=== PATIENT | male | born 1950 | race Caucasian/White ===

== ENCOUNTER 2020-10-14 10:29 | Outpatient (REF) | payer MEDICARE, OTHER, SELFPAY ==
[2020-10-14 12:21] LABS: PSA,Total (Free>4and<10) 0.23 ng/mL (0.00-4.00)
== END 2020-10-14 10:30 | disposition home or self-care (01) ==
LOC: HO.LAB 10:29
PROVIDERS: Absent Provider Urology; PCP Internal Medicine; Visit Provider Internal Medicine
DX: N40.1 Benign prostatic hyperplasia with lower urinary tract symptoms (principal); M96.1 Postlaminectomy syndrome, not elsewhere classified; Z12.5 Encounter for screening for malignant neoplasm of prostate
CPT/HCPCS: 36415; 83735; 84153

== ENCOUNTER → 2021-01-15 08:41 | Outpatient (BNVA) | payer MEDICARE, OTHER, SELFPAY | PROVIDERS: PCP Internal Medicine; Visit Provider Urology | DX: N40.1 Benign prostatic hyperplasia with lower urinary tract symptoms (principal); N13.8 Other obstructive and reflux uropathy; N52.9 Male erectile dysfunction, unspecified; I10 Essential (primary) hypertension; E78.5 Hyperlipidemia, unspecified; Z88.8 Allergy status to other drugs, medicaments and biological substances; Z87.891 Personal history of nicotine dependence | CPT/HCPCS: 51798; 81002; 99212 ==

== ENCOUNTER → 2022-07-01 11:04 | Outpatient (BNVA) | payer MEDICARE, OTHER, SELFPAY | PROVIDERS: PCP Internal Medicine; Visit Provider Urology | DX: N40.1 Benign prostatic hyperplasia with lower urinary tract symptoms (principal); N13.8 Other obstructive and reflux uropathy; N52.9 Male erectile dysfunction, unspecified | CPT/HCPCS: 51798; 99212 ==

== ENCOUNTER 2023-03-16 09:06 | Outpatient (REF) | payer MEDICARE, OTHER, SELFPAY ==
[2023-03-16 10:10] LABS: Basophils Percent Auto 0.4 % (0-2); Eosinophils Absolute Auto 0.1 X10*3/uL (0.0-0.4); Eosinophils Percent Auto 5.7 % (0-4); Hematocrit 38.5 % (42.0-52.0); Hemoglobin 12.5 g/dl (14.0-18.0); Imm Gran Abs Auto 0.01 X10*3/uL (0.00-0.03); Imm Gran Pct Auto 0.4 % (0.0-0.4); Lymphocytes Absolute Auto 0.8 X10*3/uL (1.2-4.9); Lymphocytes Percent Auto 31.6 % (20-40); Mean Corpuscular HGB Conc 32.5 g/dl (31.0-36.0); Mean Corpuscular Hemoglobin 27.7 pg (27.0-33.0); Mean Corpuscular Volume 85.4 fL (80.0-98.0); Mean Platelet Volume 9.7 fL (9.4-12.4); Monocytes Absolute Auto 0.3 X10*3/uL (0.1-1.2); Monocytes Percent Auto 11.3 % (2-11); Neutrophils Absolute Auto 1.3 x10*3/uL (2.0-8.3); Neutrophils Percent Auto 50.6 % (45-73); Platelet Count 213 X10*3/uL (160-400); Red Blood Count 4.51 X10*6/uL (4.60-5.80); Red Cell Distribution Width 13.9 % (11.0-16.0); SCAN SMEAR FLAG 1; White Blood Count 2.5 X10*3/uL (4.8-10.8)
[2023-03-16 10:11] LABS: MANUAL DIFF FLAG NO
[2023-03-16 11:40] LABS: Alanine Aminotransferase 11 U/L (0-40); Albumin Level 4.6 g/dL (3.5-5.0); Alkaline Phosphatase 50 U/L (39-117); Anion Gap 14 (12-20); Aspartate Amino Transferase 14 U/L (5-37); Bilirubin Total 0.9 mg/dL (0.0-1.0); Blood Urea Nitrogen 17 mg/dL (9-16); Calcium 9.8 mg/dL (8.4-10.2); Carbon Dioxide 24 mmol/L (22-29); Chloride 106 mmol/L (96-108); Cholesterol 166 mg/dL; Estimated Glomerular Filt Rate > 60; Glucose Fasting 105 mg/dL (60-99); HDL Cholesterol 75 mg/dL; LDL Cholesterol Calculated 81 mg/dl; Potassium 4.3 mmol/L (3.3-5.1); Sodium 140 mmol/L (135-145); Total Protein 7.4 g/dL (6.5-8.0); Triglycerides 54 mg/dL
== END 2023-03-16 09:07 | disposition home or self-care (01) ==
LOC: HO.LAB 09:06
PROVIDERS: PCP Internal Medicine; Visit Provider Internal Medicine
DX: N28.9 Disorder of kidney and ureter, unspecified (principal); D64.9 Anemia, unspecified; E78.5 Hyperlipidemia, unspecified
CPT/HCPCS: 36415; 80053; 80061; 85025

== ENCOUNTER 2023-04-29 09:30 | Outpatient (AMB) | payer MEDICARE, OTHER, SELFPAY ==
--- NOTE | 2023-04-29 09:31 | A.OFFPC_ITS ---
Vital Signs 04/29/23 09:32 Height 5 ft 10 in Weight 174 lb 6 oz BMI 25.0 BP 138/70 Blood Pressure Location Lt brachial Position Sitting Pulse 81 Pulse Source Pulse Oximeter Pulse Oximetry (%) 97 Oxygen Delivery Method Room Air Intake Visit Reasons: Med Management Intake Note: Patient is here to follow up on medication management. Associate Store Leader Required: No Clothing Pattern Preparer: Not Required per policy Accompanied by: Self / Same As Patient Allergies adalimumab [From [facility]UM[facility]A] Allergy (Unknown, Verified 04/29/23 09:32) RASH Bdpcryb-SEK-QyJ Reductase Inhibitor [AOTNEIT-EPO-KYN REDUCTASE INHIBITOR] Allergy (Unknown, Verified 04/29/23 09:32) SWELLING Medication List - Last Reconciled 04/29/23 by Chad Burk MD amlodipine 10 mg PO DAILY clobetasol 0.05% 1 appl topical BID diazepam 5 mg PO etanercept mg subcut QWEEK gabapentin 100 mg PO TID gemfibrozil 600 mg PO BID hydrocodone-acetaminophen 7.5-325 mg 1 tab PO Q6H PRN indomethacin 50 mg (2 x 25 mg) PO BID lisinopril 40 mg PO DAILY omeprazole 40 mg PO DAILY orphenadrine citrate ER 100 mg PO BID secukinumab mg subcut Q4W sildenafil 100 mg PO DAILY PRN tamsulosin 0.4 mg PO DAILY triamcinolone acetonide 0.5% 1 appl topical BID zolpidem 10 mg PO BEDTIME PRN Tobacco use date assessed: 04/29/23 Fall risk assessment: No Falls in past year Last assessed Fall Risk: 04/29/23 Dental Screening Dental Screen Date: 04/29/23 Did you have a dental visit in the last 12 months?: Yes Did you have a dental problem in the last 6 months where you did not have access to dental care?: No Was dental information given to patient?: Patient has dentist HPI Med Management HPI Details chronic back pain; stable and compliant [facility] Medical History Benign essential HTN Enlarged prostate without lower urinary tract symptoms (luts) Erectile dysfunction Hyperlipidemia Polyuria Primary osteoarthritis of right knee Psoriatic arthritis Surgical History History of appendectomy History of arthroscopy of right knee History of laparoscopic cholecystectomy History of surgery History of tonsillectomy Family History Father Degenerative joint disease Mother Psoriasis Rheumatoid arthritis Social History Housing: House Housing Other:: refused to answer Alcohol intake: never Patient Tobacco Use Status: Former Tobacco user e-Cigarette/Vaping Use: Never Used Second Hand Smoke Exposure: No service: No Current occupational status: other (refused) Current occupational exposures/hazards: No Cognitive needs: No Hearing needs: No Vision needs: No Questionnaire PHQ-9 Over the last 2 weeks, how often have you been bothered by any of the following problems? Depression Screening Interpretation: Negative Source: Developed by Drs. Hunter Ahuja, Nusrat Kraus, Ifeanyi Lyn and colleagues, with an educational merry from [employer]. Thrive Questionnaire Date Thrive assessed: 10/01/22 Currently or been in a relationship where the following occur: no concerns reported NELSON-7 AMB Questionnaire NELSON-7 Date NELSON - 7 assessed: 10/01/22 Source: Developed by Drs. Hunter Ahuja, Nusrat Kraus, Ifeanyi Lyn and colleagues, with an educational merry from [employer]. Review of Systems Const Denies chills, Denies headache(s) and Denies weight loss ENT Denies headache(s) Card Denies chest pain, Denies syncope, Denies irregular heart rhythm and Denies dyspnea Resp Denies chest congestion, Denies cough and Denies dyspnea GI Denies abdominal pain, Denies change in stool character, Denies nausea and Denies vomiting Musc Denies deformity and Denies joint swelling Neuro Denies syncope and Denies headache(s) Physical exam (Primary Care) Vital Signs: Last Vital Signs Pulse 81 04/29/23 09:32 BP 138/70 04/29/23 09:32 Pulse Ox 97 04/29/23 09:32 Oxygen Delivery Method Room Air 04/29/23 09:32 BMI result Body Mass Index 25.0 Tobacco/Smoking Status: Tobacco use Status Tobacco use date assessed 04/29/23 04/29/23 09:35 Patient Tobacco Use Status Former Tobacco user 04/29/23 09:35 e-Cigarette/Vaping Use Never Used 04/29/23 09:35 Depression Screening Interpretation: Negative Thrive Assessment: Date of Thrive Assessment Date Thrive assessed 10/01/22 04/29/23 09:35 Currently or been in a relationship where the following occur: no concerns reported Const General: cooperative, comfortable and no acute distress Resp Effort & Inspection: normal respiratory effort Auscultation: clear to auscultation bilaterally Percussion: percussion normal Cardio Jugular venous distension: no JVD Rate: regular rate Rhythm: regular rhythm GI Inspection: Yes normal to inspection Assessment and Plan Assessment & Plan (1) Failed back syndrome: Code(s): M96.1 - Postlaminectomy syndrome, not elsewhere classified Plan: stable; same rx Medications: Refilled hydrocodone-acetaminophen 7.5-325 mg 1 tab PO Q6H PRN 120 tabs 0RF pain M96.1 - Postlaminectomy syndrome, not elsewhere classified Coding Level of Care Code Est Pt Level 3 (74538) Diagnoses Failed back syndrome M96.1
[2023-04-29 09:32] VITALS: BP 138/70; PULSE 81; O2SAT 97; BMI 25.0
== END 2023-04-29 09:43 | disposition home or self-care (01) ==
PROVIDERS: Visit Provider Internal Medicine
DX: M96.1 Postlaminectomy syndrome, not elsewhere classified (principal)
CPT/HCPCS: 99213

== ENCOUNTER 2023-05-31 09:29 | Outpatient (AMB) | payer MEDICARE, OTHER, SELFPAY ==
[2023-05-31 09:33] VITALS: BP 132/68; PULSE 80; O2SAT 97; BMI 25.0
--- NOTE | 2023-05-31 09:33 | MHC.PC.OV ---
Vital Signs 05/31/23 09:33 Height 5 ft 10 in Weight 174 lb 2 oz BMI 25.0 BP 132/68 Blood Pressure Location Lt brachial Position Sitting Pulse 80 Pulse Source Pulse Oximeter Pulse Oximetry (%) 97 Oxygen Delivery Method Room Air Intake Visit Reasons: Med Management Allergies adalimumab [From HUMIRA] Allergy (Unknown, Verified 04/29/23 09:32) RASH Wazrvog-XGP-JsA Reductase Inhibitor [DBUJSWW-OMQ-BOU REDUCTASE INHIBITOR] Allergy (Unknown, Verified 04/29/23 09:32) SWELLING Tobacco use date assessed: 04/29/23 HPI Med Management HPI Details f/u chronic back pain; stable on rx PFSH Medical History Benign essential HTN Enlarged prostate without lower urinary tract symptoms (luts) Erectile dysfunction Hyperlipidemia Polyuria Primary osteoarthritis of right knee Psoriatic arthritis Surgical History History of appendectomy History of arthroscopy of right knee History of laparoscopic cholecystectomy History of surgery History of tonsillectomy Family History Father Degenerative joint disease Mother Psoriasis Rheumatoid arthritis Social History Housing: House Housing Other:: refused to answer Alcohol intake: never Patient Tobacco Use Status: Former Tobacco user e-Cigarette/Vaping Use: Never Used Second Hand Smoke Exposure: No service: No Current occupational status: other (refused) Current occupational exposures/hazards: No Cognitive needs: No Hearing needs: No Vision needs: No Questionnaire PHQ-9 Over the last 2 weeks, how often have you been bothered by any of the following problems? 1. Little interest or pleasure in doing things: not at all 2. Feeling down, depressed, or hopeless: not at all 3. Trouble falling or staying asleep, or sleeping too much: not at all 4. Feeling tired or having little energy: not at all 5. Poor appetite or overeating: not at all 6. Feeling bad about yourself - or that you are a failure or have let yourself or your family down: not at all 7. Trouble concentrating on things, such as reading the newspaper or watching television: not at all 8. Moving or speaking so slowly that other people could have noticed. Or the opposite - being so fidgety or restless that you have been moving around a lot more than usual: not at all 9. Thoughts that you would be better off or of hurting yourself in some way: not at all Total score: 0 Depression Screening Interpretation: Negative Source: Developed by Nusrat Cuenca Kurt Kroenke and colleagues, with an educational merry from [employer]. Thrive Questionnaire Date Thrive assessed: 10/01/22 Currently or been in a relationship where the following occur: no concerns reported AUDIT C Alcohol Use Questionnaire (AUDIT-C) 1. How often do you have a drink containing alcohol?: Never 3. How often do you have six or more drinks on one occasion?: Never Total Score: 0 Score Reviewed/Action Taken: Yes NELSON-7 AMB Questionnaire NELSON-7 Date NELSON - 7 assessed: 10/01/22 Source: Developed by Drs. Hunter Ahuja, Nusrat Kraus, Ifeanyi Lyn and colleagues, with an educational merry from [employer]. Physical exam (Primary Care) Vital Signs: Last Vital Signs Pulse 80 05/31/23 09:33 BP 132/68 05/31/23 09:33 Pulse Ox 97 05/31/23 09:33 Oxygen Delivery Method Room Air 05/31/23 09:33 BMI result Body Mass Index 25.0 Tobacco/Smoking Status: Tobacco use Status Tobacco use date assessed 04/29/23 05/31/23 09:37 Patient Tobacco Use Status Former Tobacco user 05/31/23 09:37 e-Cigarette/Vaping Use Never Used 05/31/23 09:37 PHQ-9: PHQ-9 Score PHQ-9: Total score 0 05/31/23 09:37 Depression Screening Interpretation: Negative Thrive Assessment: Date of Thrive Assessment Date Thrive assessed 10/01/22 05/31/23 09:37 Currently or been in a relationship where the following occur: no concerns reported Const General: cooperative, comfortable and no acute distress Resp Effort & Inspection: normal respiratory effort Auscultation: clear to auscultation bilaterally Percussion: percussion normal Cardio Jugular venous distension: no JVD Rate: regular rate Rhythm: regular rhythm GI Inspection: Yes normal to inspection Assessment and Plan Assessment & Plan (1) Failed back syndrome: Code(s): M96.1 - Postlaminectomy syndrome, not elsewhere classified Plan: stable; same rx Medications: Refilled hydrocodone-acetaminophen 7.5-325 mg 1 tab PO Q6H PRN 120 tabs 0RF pain M96.1 - Postlaminectomy syndrome, not elsewhere classified Coding Level of Care Code Est Pt Level 3 (62979) Diagnoses Failed back syndrome M96.1
== END 2023-05-31 10:36 | disposition home or self-care (01) ==
PROVIDERS: PCP Internal Medicine; Visit Provider Internal Medicine
DX: M96.1 Postlaminectomy syndrome, not elsewhere classified (principal)
CPT/HCPCS: 99213

== ENCOUNTER 2023-06-30 09:24 | Outpatient (AMB) | payer MEDICARE, OTHER, SELFPAY ==
[2023-06-30 09:26] VITALS: BP 130/68; PULSE 65; O2SAT 98; BMI 25.0
--- NOTE | 2023-06-30 09:26 | MHC.PC.OV ---
Vital Signs 06/30/23 09:26 Height 5 ft 10 in Weight 174 lb BMI 25.0 BP 130/68 Blood Pressure Location Lt brachial Position Sitting Pulse 65 Pulse Source Pulse Oximeter Pulse Oximetry (%) 98 Oxygen Delivery Method Room Air Intake Visit Reasons: Med Management Millinery Blocker: Not Required per policy Accompanied by: Self / Same As Patient Allergies adalimumab [From HUMIRA] Allergy (Unknown, Verified 06/30/23 09:27) RASH Mjhkkcs-JYQ-FtS Reductase Inhibitor [YMZGQIR-QVQ-KAM REDUCTASE INHIBITOR] Allergy (Unknown, Verified 06/30/23 09:27) SWELLING Medication List - Last Reconciled 06/30/23 by Chad Burk MD amlodipine 10 mg PO DAILY clobetasol 0.05% 1 appl topical BID diazepam 5 mg PO etanercept mg subcut QWEEK gabapentin 100 mg PO TID gemfibrozil 600 mg PO BID hydrocodone-acetaminophen 7.5-325 mg 1 tab PO Q6H PRN indomethacin 50 mg (2 x 25 mg) PO BID lisinopril 40 mg PO DAILY omeprazole 40 mg PO DAILY orphenadrine citrate ER 100 mg PO BID secukinumab mg subcut Q4W sildenafil 100 mg PO DAILY PRN tamsulosin 0.4 mg PO DAILY triamcinolone acetonide 0.5% 1 appl topical BID zolpidem 10 mg PO BEDTIME PRN Tobacco use date assessed: 04/29/23 Fall risk assessment: No Falls in past year Last assessed Fall Risk: 06/30/23 Dental Screening Dental Screen Date: 06/30/23 Did you have a dental visit in the last 12 months?: Yes Did you have a dental problem in the last 6 months where you did not have access to dental care?: No Was dental information given to patient?: Patient has dentist HPI Med Management HPI Details f/u failed back syndrome; doing well PFSH Medical History Polyuria Hyperlipidemia Psoriatic arthritis Benign essential HTN Primary osteoarthritis of right knee Erectile dysfunction Enlarged prostate without lower urinary tract symptoms (luts) Surgical History History of surgery History of laparoscopic cholecystectomy History of tonsillectomy History of arthroscopy of right knee History of appendectomy Family History Father Degenerative joint disease Mother Psoriasis Rheumatoid arthritis Social History Housing: House Housing Other:: refused to answer Alcohol intake: never Patient Tobacco Use Status: Former Tobacco user e-Cigarette/Vaping Use: Never Used Second Hand Smoke Exposure: No service: No Current occupational status: other (refused) Current occupational exposures/hazards: No Cognitive needs: No Hearing needs: No Vision needs: No Questionnaire PHQ-9 Over the last 2 weeks, how often have you been bothered by any of the following problems? 1. Little interest or pleasure in doing things: not at all 2. Feeling down, depressed, or hopeless: not at all 3. Trouble falling or staying asleep, or sleeping too much: not at all 4. Feeling tired or having little energy: not at all 5. Poor appetite or overeating: not at all 6. Feeling bad about yourself - or that you are a failure or have let yourself or your family down: not at all 7. Trouble concentrating on things, such as reading the newspaper or watching television: not at all 8. Moving or speaking so slowly that other people could have noticed. Or the opposite - being so fidgety or restless that you have been moving around a lot more than usual: not at all 9. Thoughts that you would be better off or of hurting yourself in some way: not at all Total score: 0 Depression Screening Interpretation: Negative Depression Screening Done: Yes Source: Developed by Drs. Hunter Ahuja, Ifeanyi Benson and colleagues, with an educational merry from [employer]. Thrive Questionnaire Date Thrive assessed: 10/01/22 AUDIT C Alcohol Use Questionnaire (AUDIT-C) 1. How often do you have a drink containing alcohol?: Never 3. How often do you have six or more drinks on one occasion?: Never Total Score: 0 Score Reviewed/Action Taken: Yes NELSON-7 AMB Questionnaire NELSON-7 Date NELSON - 7 assessed: 10/01/22 Source: Developed by Nusrat Cuenca Kurt Kroenke and colleagues, with an educational merry from [employer]. Review of Systems Const Denies chills, Denies headache(s) and Denies weight loss ENT Denies headache(s) Card Denies chest pain, Denies syncope, Denies irregular heart rhythm and Denies dyspnea Resp Denies chest congestion, Denies cough and Denies dyspnea GI Denies abdominal pain, Denies change in stool character, Denies nausea and Denies vomiting Musc Denies deformity and Denies joint swelling Neuro Denies syncope and Denies headache(s) Physical exam (Primary Care) Vital Signs: Last Vital Signs Pulse 65 06/30/23 09:26 BP 130/68 06/30/23 09:26 Pulse Ox 98 06/30/23 09:26 Oxygen Delivery Method Room Air 06/30/23 09:26 BMI result Body Mass Index 25.0 Tobacco/Smoking Status: Tobacco use Status Tobacco use date assessed 04/29/23 06/30/23 09:28 Patient Tobacco Use Status Former Tobacco user 06/30/23 09:28 e-Cigarette/Vaping Use Never Used 06/30/23 09:28 PHQ-9: PHQ-9 Score PHQ-9: Total score 0 06/30/23 09:28 Depression Screening Interpretation: Negative Thrive Assessment: Date of Thrive Assessment Date Thrive assessed 10/01/22 06/30/23 09:28 Const General: cooperative, comfortable, no acute distress and alert Neck Neck: Yes no lymphadenopathy Thyroid: Thyroid normal Resp Effort & Inspection: normal respiratory effort Auscultation: clear to auscultation bilaterally Percussion: percussion normal Cardio Jugular venous distension: no JVD Palpation: normal PMI Rate: regular rate Rhythm: regular rhythm Heart sounds: S1 normal heart sound present and S2 normal heart sound present GI Inspection: Yes normal to inspection Palpation (GI): No hepatosplenomegaly present Skin General skin exam: no rashes or lesions noted Extrem General: Yes no clubbing, cyanosis or edema Office Procedures Flu Questionnaire Does the patient have a severe egg allergy?: No Does the patient have severe life threatening allergies?: No Does the patient have a fever or illness today?: No Has the patient ever had Guillain-[place] Syndrome?: No Has the patient ever had any past reaction to a flu shot?: No Immunizations flu vacc [id number] 6mos up(PF) 60 mcg(15 mcgx4)/0.5 mL IM syringe Performing Provider: Chad Burk MD [facility] Administered by: MIHAI Ortiz on 06/30/23 09:32 Dose Route Admin Location Dispensed Lot Number Expiration Date NDC Commercial Leasing Agent 0.5 mL IM Right Deltoid 0.5 mL [id number] 03/25/24 [id number] [employer] VIS Given Date VIS Provided VIS Publication Date 06/30/23 Single Vaccine 21 Eligibility Eligibility Date Funding Source Not [facility] Eligible 06/30/23 Private Assessment and Plan Assessment & Plan (1) Failed back syndrome: Code(s): M96.1 - Postlaminectomy syndrome, not elsewhere classified Plan: stable; same rx Orders: Orders Influenza [id number] Immunization Today Z23 - Encounter for immunization Medications: Refilled hydrocodone-acetaminophen 7.5-325 mg 1 tab PO Q6H PRN 120 tabs 0RF pain M96.1 - Postlaminectomy syndrome, not elsewhere classified Coding Level of Care Code Est Pt Level 3 (12831) Diagnoses Failed back syndrome M96.1
== END 2023-06-30 10:47 | disposition home or self-care (01) ==
PROVIDERS: PCP Internal Medicine; Visit Provider Internal Medicine
DX: Z23 Encounter for immunization (principal); M96.1 Postlaminectomy syndrome, not elsewhere classified
CPT/HCPCS: 90471; 90686; 99213

== ENCOUNTER 2023-07-29 09:23 | Outpatient (AMB) | payer MEDICARE, OTHER, SELFPAY ==
[2023-07-29 09:26] VITALS: BP 132/66; PULSE 65; O2SAT 99; BMI 25.8
--- NOTE | 2023-07-29 09:26 | A.OFFPC_ITS ---
Vital Signs 07/29/23 09:26 Height 5 ft 10 in Weight 180 lb BMI 25.8 BP 132/66 Blood Pressure Location Lt brachial Position Sitting Pulse 65 Pulse Source Pulse Oximeter Pulse Oximetry (%) 99 Oxygen Delivery Method Room Air Intake Visit Reasons: Med Management Pan Greaser Required: No Scratcher Tender: Not Required per policy Accompanied by: Self / Same As Patient Allergies adalimumab [From HUMIRA] Allergy (Unknown, Verified 07/29/23 09:26) RASH Zmyqujh-JND-XiV Reductase Inhibitor [WLOJQSS-WBV-HHW REDUCTASE INHIBITOR] Allergy (Unknown, Verified 07/29/23 09:26) SWELLING Medication List - Last Reconciled 07/29/23 by Chad Burk MD amlodipine 10 mg PO DAILY clobetasol 0.05% 1 appl topical BID diazepam 5 mg PO etanercept mg subcut QWEEK gabapentin 100 mg PO TID gemfibrozil 600 mg PO BID hydrocodone-acetaminophen 7.5-325 mg 1 tab PO Q6H PRN indomethacin 50 mg (2 x 25 mg) PO BID lisinopril 40 mg PO DAILY omeprazole 40 mg PO DAILY orphenadrine citrate ER 100 mg PO BID secukinumab mg subcut Q4W sildenafil 100 mg PO DAILY PRN tamsulosin 0.4 mg PO DAILY triamcinolone acetonide 0.5% 1 appl topical BID zolpidem 10 mg PO BEDTIME PRN Tobacco use date assessed: 04/29/23 Fall risk assessment: No Falls in past year Last assessed Fall Risk: 07/29/23 Dental Screening Dental Screen Date: 07/29/23 Did you have a dental visit in the last 12 months?: Yes Did you have a dental problem in the last 6 months where you did not have access to dental care?: No Was dental information given to patient?: Patient has dentist HPI Med Management HPI Details failed back syndroe; doing well and compliant [facility] Medical History Polyuria Hyperlipidemia Psoriatic arthritis Benign essential HTN Primary osteoarthritis of right knee Erectile dysfunction Enlarged prostate without lower urinary tract symptoms (luts) Surgical History History of surgery History of laparoscopic cholecystectomy History of tonsillectomy History of arthroscopy of right knee History of appendectomy Family History Father Degenerative joint disease Mother Psoriasis Rheumatoid arthritis Social History Housing: House Housing Other:: refused to answer Alcohol intake: never Patient Tobacco Use Status: Former Tobacco user e-Cigarette/Vaping Use: Never Used Second Hand Smoke Exposure: No service: No Current occupational status: other (refused) Current occupational exposures/hazards: No Cognitive needs: No Hearing needs: No Vision needs: No Questionnaire PHQ-9 Over the last 2 weeks, how often have you been bothered by any of the following problems? 1. Little interest or pleasure in doing things: not at all 2. Feeling down, depressed, or hopeless: not at all 3. Trouble falling or staying asleep, or sleeping too much: not at all 4. Feeling tired or having little energy: not at all 5. Poor appetite or overeating: not at all 6. Feeling bad about yourself - or that you are a failure or have let yourself or your family down: not at all 7. Trouble concentrating on things, such as reading the newspaper or watching television: not at all 8. Moving or speaking so slowly that other people could have noticed. Or the opposite - being so fidgety or restless that you have been moving around a lot more than usual: not at all 9. Thoughts that you would be better off or of hurting yourself in some way: not at all Total score: 0 Depression Screening Interpretation: Negative Depression Screening Done: Yes Source: Developed by Drs. Hunter Ahuja, Ifeanyi Benson and colleagues, with an educational merry from [facility]. Thrive Questionnaire Date Thrive assessed: 10/01/22 AUDIT C Alcohol Use Questionnaire (AUDIT-C) 1. How often do you have a drink containing alcohol?: Never 3. How often do you have six or more drinks on one occasion?: Never Total Score: 0 Score Reviewed/Action Taken: Yes NELSON-7 AMB Questionnaire NELSON-7 Date NELSON - 7 assessed: 10/01/22 Source: Developed by Drs. Hunter Ahuja, Ifeanyi Benson and colleagues, with an educational merry from [facility]. Review of Systems Const Denies chills, Denies headache(s) and Denies weight loss ENT Denies headache(s) Card Denies chest pain, Denies syncope, Denies irregular heart rhythm and Denies dyspnea Resp Denies chest congestion, Denies cough and Denies dyspnea GI Denies abdominal pain, Denies change in stool character, Denies nausea and Denies vomiting Musc Denies deformity and Denies joint swelling Neuro Denies syncope and Denies headache(s) Physical exam (Primary Care) Vital Signs: Last Vital Signs Pulse 65 07/29/23 09:26 BP 132/66 07/29/23 09:26 Pulse Ox 99 07/29/23 09:26 Oxygen Delivery Method Room Air 07/29/23 09:26 BMI result Body Mass Index 25.8 Tobacco/Smoking Status: Tobacco use Status Tobacco use date assessed 04/29/23 07/29/23 09:27 Patient Tobacco Use Status Former Tobacco user 07/29/23 09:27 e-Cigarette/Vaping Use Never Used 07/29/23 09:27 PHQ-9: PHQ-9 Score PHQ-9: Total score 0 07/29/23 09:30 Depression Screening Interpretation: Negative Thrive Assessment: Date of Thrive Assessment Date Thrive assessed 10/01/22 07/29/23 09:27 Const General: cooperative, comfortable, no acute distress and alert Neck Neck: Yes no lymphadenopathy Thyroid: Thyroid normal Resp Effort & Inspection: normal respiratory effort Auscultation: clear to auscultation bilaterally Percussion: percussion normal Cardio Jugular venous distension: no JVD Palpation: normal PMI Rate: regular rate Rhythm: regular rhythm Heart sounds: S1 normal heart sound present and S2 normal heart sound present GI Inspection: Yes normal to inspection Palpation (GI): No hepatosplenomegaly present Skin General skin exam: no rashes or lesions noted Extrem General: Yes no clubbing, cyanosis or edema Assessment and Plan Assessment & Plan (1) Failed back syndrome: Code(s): M96.1 - Postlaminectomy syndrome, not elsewhere classified Plan: stable; same rx Medications: Refilled hydrocodone-acetaminophen 7.5-325 mg 1 tab PO Q6H PRN 120 tabs 0RF pain M96.1 - Postlaminectomy syndrome, not elsewhere classified Coding Level of Care Code Est Pt Level 3 (26843) Diagnoses Failed back syndrome M96.1
== END 2023-07-29 09:47 | disposition home or self-care (01) ==
PROVIDERS: Visit Provider Internal Medicine
DX: M96.1 Postlaminectomy syndrome, not elsewhere classified (principal)
CPT/HCPCS: 99213

== ENCOUNTER 2023-08-29 09:41 | Outpatient (AMB) | payer MEDICARE, OTHER, SELFPAY ==
[2023-08-29 09:43] VITALS: BP 136/80; PULSE 60; O2SAT 99; BMI 25.4
--- NOTE | 2023-08-29 09:43 | MHC.PC.OV ---
Vital Signs 08/29/23 09:43 Height 5 ft 10 in Weight 177 lb BMI 25.4 BP 136/80 Blood Pressure Location Lt brachial Position Sitting Pulse 60 Pulse Source Pulse Oximeter Pulse Oximetry (%) 99 Oxygen Delivery Method Room Air Intake Visit Reasons: Med Management Contact Center Rep Required: No Fisher Weir: Not Required per policy Accompanied by: Self / Same As Patient Allergies adalimumab [From [facility]A] Allergy (Unknown, Verified 08/29/23 09:43) RASH Pwgtjqi-VLZ-BpY Reductase Inhibitor [UGRKSKU-AXK-SQR REDUCTASE INHIBITOR] Allergy (Unknown, Verified 08/29/23 09:43) SWELLING Medication List - Last Reconciled 08/29/23 by Chad Burk MD amlodipine 10 mg PO DAILY clobetasol 0.05% 1 appl topical BID diazepam 5 mg PO etanercept mg subcut QWEEK gabapentin 100 mg PO TID gemfibrozil 600 mg PO BID hydrocodone-acetaminophen 7.5-325 mg 1 tab PO Q6H PRN indomethacin 50 mg (2 x 25 mg) PO BID lisinopril 40 mg PO DAILY omeprazole 40 mg PO DAILY orphenadrine citrate ER 100 mg PO BID secukinumab mg subcut Q4W sildenafil 100 mg PO DAILY PRN tamsulosin 0.4 mg PO DAILY triamcinolone acetonide 0.5% 1 appl topical BID zolpidem 10 mg PO BEDTIME PRN Tobacco use date assessed: 04/29/23 Fall risk assessment: No Falls in past year Last assessed Fall Risk: 08/29/23 Dental Screening Dental Screen Date: 08/29/23 Did you have a dental visit in the last 12 months?: Yes Did you have a dental problem in the last 6 months where you did not have access to dental care?: No Was dental information given to patient?: Patient has dentist HPI Med Management HPI Details chronic back pain on rx; doing well and compliant [facility] [place] Medical History Polyuria Hyperlipidemia Psoriatic arthritis Benign essential HTN Primary osteoarthritis of right knee Erectile dysfunction Enlarged prostate without lower urinary tract symptoms (luts) Surgical History History of surgery History of laparoscopic cholecystectomy History of tonsillectomy History of arthroscopy of right knee History of appendectomy Family History Father Degenerative joint disease Mother Psoriasis Rheumatoid arthritis Social History Housing: House Housing Other:: refused to answer Alcohol intake: never Patient Tobacco Use Status: Former Tobacco user e-Cigarette/Vaping Use: Never Used Second Hand Smoke Exposure: No service: No Current occupational status: other (refused) Current occupational exposures/hazards: No Cognitive needs: No Hearing needs: No Vision needs: No Questionnaire Thrive Questionnaire Date Thrive assessed: 10/01/22 NELSON-7 AMB Questionnaire NELSON-7 Date NELSON - 7 assessed: 10/01/22 Source: Developed by Drs. Hunter Ahuja, Nusrat Kraus, Ifeanyi Lyn and colleagues, with an educational merry from [employer]. Review of Systems Const Denies chills, Denies headache(s) and Denies weight loss ENT Denies headache(s) Card Denies chest pain, Denies syncope, Denies irregular heart rhythm and Denies dyspnea Resp Denies chest congestion, Denies cough and Denies dyspnea GI Denies abdominal pain, Denies change in stool character, Denies nausea and Denies vomiting Musc Denies deformity and Denies joint swelling Neuro Denies syncope and Denies headache(s) Physical exam (Primary Care) Vital Signs: Last Vital Signs Pulse 60 08/29/23 09:43 BP 136/80 08/29/23 09:43 Pulse Ox 99 08/29/23 09:43 Oxygen Delivery Method Room Air 08/29/23 09:43 BMI result Body Mass Index 25.4 Tobacco/Smoking Status: Tobacco use Status Tobacco use date assessed 04/29/23 08/29/23 09:44 Patient Tobacco Use Status Former Tobacco user 08/29/23 09:44 e-Cigarette/Vaping Use Never Used 08/29/23 09:44 Thrive Assessment: Date of Thrive Assessment Date Thrive assessed 10/01/22 08/29/23 09:44 Const General: cooperative, comfortable, no acute distress and alert Neck Neck: Yes no lymphadenopathy Thyroid: Thyroid normal Resp Effort & Inspection: normal respiratory effort Auscultation: clear to auscultation bilaterally Percussion: percussion normal Cardio Jugular venous distension: no JVD Palpation: normal PMI Rate: regular rate Rhythm: regular rhythm Heart sounds: S1 normal heart sound present and S2 normal heart sound present GI Inspection: Yes normal to inspection Palpation (GI): No hepatosplenomegaly present Skin General skin exam: no rashes or lesions noted Extrem General: Yes no clubbing, cyanosis or edema Immunizations Boostrix Tdap 2.5 Lf unit-8 mcg-5 Lf/0.5 mL intramuscular suspension Performing Provider: Chad Burk MD Performing Location: [facility] Administered by: MIHAI Ortiz on 08/29/23 10:06 Dose Route Admin Location Dispensed Lot Number Expiration Date [employer] 0.5 mL IM Right Deltoid 0.5 mL [id number] 10/25/25 34901-361-42 Connect VIS Given Date VIS Provided VIS Publication Date 08/29/23 Single Vaccine 21 Eligibility Eligibility Date Funding Source Not [facility] Eligible 08/29/23 Private Assessment and Plan Assessment & Plan (1) Failed back syndrome: Code(s): M96.1 - Postlaminectomy syndrome, not elsewhere classified Plan: stable; same rx Orders: Orders TDaP Immunization Today Z23 - Encounter for immunization Medications: Refilled hydrocodone-acetaminophen 7.5-325 mg 1 tab PO Q6H PRN 120 tabs 0RF pain M96.1 - Postlaminectomy syndrome, not elsewhere classified Coding Level of Care Code Est Pt Level 3 (96458) Diagnoses Failed back syndrome M96.1
== END 2023-08-29 10:07 | disposition home or self-care (01) ==
PROVIDERS: Visit Provider Internal Medicine
DX: Z23 Encounter for immunization (principal); M96.1 Postlaminectomy syndrome, not elsewhere classified
CPT/HCPCS: 90471; 90715; 99213

== ENCOUNTER 2023-09-29 09:23 | Outpatient (AMB) | payer MEDICARE, OTHER, SELFPAY ==
[2023-09-29 09:24] VITALS: BP 128/70; PULSE 68; BMI 25.3
--- NOTE | 2023-09-29 09:24 | MHC.PC.OV ---
Vital Signs 09/29/23 09:24 Height 5 ft 10 in Weight 176 lb BMI 25.3 BP 128/70 Blood Pressure Location Lt brachial Position Sitting Pulse 68 Pulse Source Pulse Oximeter Oxygen Delivery Method Room Air Intake Visit Reasons: Med Management Inclusion Specialist Required: No Animal Park Code Enforcement Officer: Not Required per policy Accompanied by: Self / Same As Patient Allergies adalimumab [From [facility]A] Allergy (Unknown, Verified 09/29/23 09:25) RASH Cxubfzx-QKN-FjM Reductase Inhibitor [FABYHOW-BGS-YAY REDUCTASE INHIBITOR] Allergy (Unknown, Verified 09/29/23 09:25) SWELLING Medication List - Last Reconciled 09/29/23 by Chad Burk MD amlodipine 10 mg PO DAILY clobetasol 0.05% 1 appl topical BID diazepam 5 mg PO etanercept mg subcut QWEEK gabapentin 100 mg PO TID gemfibrozil 600 mg PO BID hydrocodone-acetaminophen 7.5-325 mg 1 tab PO Q6H PRN indomethacin 50 mg (2 x 25 mg) PO BID lisinopril 40 mg PO DAILY omeprazole 40 mg PO DAILY orphenadrine citrate ER 100 mg PO BID secukinumab mg subcut Q4W sildenafil 100 mg PO DAILY PRN tamsulosin 0.4 mg PO DAILY triamcinolone acetonide 0.5% 1 appl topical BID zolpidem 10 mg PO BEDTIME PRN Tobacco use date assessed: 04/29/23 Fall risk assessment: No Falls in past year Last assessed Fall Risk: 09/29/23 Dental Screening Dental Screen Date: 09/29/23 Did you have a dental visit in the last 12 months?: Yes Did you have a dental problem in the last 6 months where you did not have access to dental care?: No Was dental information given to patient?: Patient has dentist HPI Med Management HPI Details f/u chronic back pain; stable on rx PFSH Medical History Polyuria Hyperlipidemia Psoriatic arthritis Benign essential HTN Primary osteoarthritis of right knee Erectile dysfunction Enlarged prostate without lower urinary tract symptoms (luts) Surgical History History of surgery History of laparoscopic cholecystectomy History of tonsillectomy History of arthroscopy of right knee History of appendectomy Family History Father Degenerative joint disease Mother Psoriasis Rheumatoid arthritis Social History Housing: House Housing Other:: refused to answer Alcohol intake: never Patient Tobacco Use Status: Former Tobacco user e-Cigarette/Vaping Use: Never Used Second Hand Smoke Exposure: No service: No Current occupational status: other (refused) Current occupational exposures/hazards: No Cognitive needs: No Hearing needs: No Vision needs: No Questionnaire PHQ-9 Over the last 2 weeks, how often have you been bothered by any of the following problems? 1. Little interest or pleasure in doing things: not at all 2. Feeling down, depressed, or hopeless: not at all 3. Trouble falling or staying asleep, or sleeping too much: not at all 4. Feeling tired or having little energy: not at all 5. Poor appetite or overeating: not at all 6. Feeling bad about yourself - or that you are a failure or have let yourself or your family down: not at all 7. Trouble concentrating on things, such as reading the newspaper or watching television: not at all 8. Moving or speaking so slowly that other people could have noticed. Or the opposite - being so fidgety or restless that you have been moving around a lot more than usual: not at all 9. Thoughts that you would be better off or of hurting yourself in some way: not at all Total score: 0 Depression Screening Interpretation: Negative Depression Screening Done: Yes Source: Developed by Drs. Hunter Ahuja, Nusrat Kraus, Ifeanyi Lyn and colleagues, with an educational merry from [employer]. Thrive Questionnaire Date Thrive assessed: 09/29/23 I am a: Patient What is your living situation today?: I have a steady place to live Within the past 12 months, did the food you bought not last and you didn't have the money to get more?: Never true Within the past 12 months, did you worry whether your food would run out before you got money to buy more?: Never true Do you have trouble paying for medicines?: No Do you have trouble getting transportation to medical appointments?: No Do you have trouble paying your heating and electricity bill?: No Do you have trouble taking care of your child, family member or friend?: No Do you have trouble with day-to-day activities such as bathing, preparing meals, shopping, managing finances, etc.?: No Are you currently unemployed and looking for a job?: No Are you interested in more education?: No Please select the resources that you would like help with: None AUDIT C Alcohol Use Questionnaire (AUDIT-C) 1. How often do you have a drink containing alcohol?: Never 3. How often do you have six or more drinks on one occasion?: Never Total Score: 0 Score Reviewed/Action Taken: Yes NELSON-7 AMB Questionnaire NELSON-7 Date NELSON - 7 assessed: 09/29/23 Feeling nervous, anxious, or on edge: 0 = Not at all Not being able to stop or control worryin = Not at all Worrying too much about different things: 0 = Not at all Trouble relaxin = Not at all Being so restless that it is hard to sit still: 0 = Not at all Becoming easily annoyed or irritable: 0 = Not at all Feeling afraid as if something awful might happen: 0 = Not at all Total NELSON-7 score (0-4 normal; 5-9 mild; 10-14 moderate; 15-21 severe): 0 Source: Developed by Drs. Hunter Ahuja, Nusrat Kraus, Ifeanyi Lyn and colleagues, with an educational merry from [employer]. Review of Systems Const Denies chills, Denies headache(s) and Denies weight loss ENT Denies headache(s) Card Denies chest pain, Denies syncope, Denies irregular heart rhythm and Denies dyspnea Resp Denies chest congestion, Denies cough and Denies dyspnea GI Denies abdominal pain, Denies change in stool character, Denies nausea and Denies vomiting Musc Denies deformity and Denies joint swelling Neuro Denies syncope and Denies headache(s) Physical exam (Primary Care) Vital Signs: Last Vital Signs Pulse 68 09/29/23 09:24 BP 128/70 09/29/23 09:24 Oxygen Delivery Method Room Air 09/29/23 09:24 BMI result Body Mass Index 25.3 Tobacco/Smoking Status: Tobacco use Status Tobacco use date assessed 04/29/23 09/29/23 09:31 Patient Tobacco Use Status Former Tobacco user 09/29/23 09:31 e-Cigarette/Vaping Use Never Used 09/29/23 09:31 PHQ-9: PHQ-9 Score PHQ-9: Total score 0 09/29/23 09:31 Depression Screening Interpretation: Negative Thrive Assessment: Date of Thrive Assessment Date Thrive assessed 09/29/23 09/29/23 09:31 Const General: cooperative, comfortable, no acute distress and alert Neck Neck: Yes no lymphadenopathy Thyroid: Thyroid normal Resp Effort & Inspection: normal respiratory effort Auscultation: clear to auscultation bilaterally Percussion: percussion normal Cardio Jugular venous distension: no JVD Palpation: normal PMI Rate: regular rate Rhythm: regular rhythm Heart sounds: S1 normal heart sound present and S2 normal heart sound present GI Inspection: Yes normal to inspection Palpation (GI): No hepatosplenomegaly present Skin General skin exam: no rashes or lesions noted Extrem General: Yes no clubbing, cyanosis or edema Assessment and Plan Assessment & Plan (1) Failed back syndrome: Code(s): M96.1 - Postlaminectomy syndrome, not elsewhere classified Plan: stable; same rx Medications: Refilled hydrocodone-acetaminophen 7.5-325 mg 1 tab PO Q6H PRN 120 tabs 0RF pain M96.1 - Postlaminectomy syndrome, not elsewhere classified zolpidem 10 mg PO BEDTIME PRN 30 tabs 5RF insomnia Coding Level of Care Code Est Pt Level 3 (70296) Diagnoses Failed back syndrome M96.1
== END 2023-09-29 09:38 | disposition home or self-care (01) ==
PROVIDERS: PCP Internal Medicine; Visit Provider Internal Medicine
DX: M96.1 Postlaminectomy syndrome, not elsewhere classified (principal)
CPT/HCPCS: 99213

== ENCOUNTER 2023-10-31 09:26 | Outpatient (AMB) | payer MEDICARE, OTHER, SELFPAY ==
[2023-10-31 09:29] VITALS: BP 140/80; PULSE 67; O2SAT 99; BMI 25.3
--- NOTE | 2023-10-31 09:29 | MHC.PC.OV ---
Vital Signs 10/31/23 09:29 Height 5 ft 10 in Weight 176 lb BMI 25.3 BP 140/80 H Blood Pressure Location Lt brachial Position Sitting Pulse 67 Pulse Source Pulse Oximeter Pulse Oximetry (%) 99 Oxygen Delivery Method Room Air Intake Visit Reasons: Med Management Stage Rigger: Not Required per policy Accompanied by: Self / Same As Patient Allergies adalimumab [From [facility]A] Allergy (Unknown, Verified 10/31/23 09:29) RASH Xujxkvf-BST-YzE Reductase Inhibitor [EOAPNPY-XAB-ZCQ REDUCTASE INHIBITOR] Allergy (Unknown, Verified 10/31/23 09:29) SWELLING Medication List - Last Reconciled 10/31/23 by Chad Burk MD amlodipine 10 mg PO DAILY clobetasol 0.05% 1 appl topical BID diazepam 5 mg PO etanercept mg subcut QWEEK gabapentin 100 mg PO TID gemfibrozil 600 mg PO BID hydrocodone-acetaminophen 7.5-325 mg 1 tab PO Q6H PRN indomethacin 50 mg (2 x 25 mg) PO BID lisinopril 40 mg PO DAILY omeprazole 40 mg PO DAILY orphenadrine citrate ER 100 mg PO BID secukinumab mg subcut Q4W sildenafil 100 mg PO DAILY PRN tamsulosin 0.4 mg PO DAILY triamcinolone acetonide 0.5% 1 appl topical BID zolpidem 10 mg PO BEDTIME PRN Tobacco use date assessed: 10/31/23 Fall risk assessment: No Falls in past year Last assessed Fall Risk: 10/31/23 Dental Screening Dental Screen Date: 10/31/23 Did you have a dental visit in the last 12 months?: Yes Did you have a dental problem in the last 6 months where you did not have access to dental care?: No Was dental information given to patient?: Patient has dentist HPI Med Management HPI Details injured left shoulder raking a month ago; still has pain PFSH Medical History Polyuria Hyperlipidemia Psoriatic arthritis Benign essential HTN Primary osteoarthritis of right knee Erectile dysfunction Enlarged prostate without lower urinary tract symptoms (luts) Surgical History History of surgery History of laparoscopic cholecystectomy History of tonsillectomy History of arthroscopy of right knee History of appendectomy Family History Father Degenerative joint disease Mother Psoriasis Rheumatoid arthritis Social History Housing: House Housing Other:: refused to answer Alcohol intake: never Patient Tobacco Use Status: Former Tobacco user e-Cigarette/Vaping Use: Never Used Second Hand Smoke Exposure: No service: No Current occupational status: other (refused) Current occupational exposures/hazards: No Cognitive needs: No Hearing needs: No Vision needs: No Questionnaire PHQ-9 Over the last 2 weeks, how often have you been bothered by any of the following problems? 1. Little interest or pleasure in doing things: not at all 2. Feeling down, depressed, or hopeless: not at all 3. Trouble falling or staying asleep, or sleeping too much: not at all 4. Feeling tired or having little energy: not at all 5. Poor appetite or overeating: not at all 6. Feeling bad about yourself - or that you are a failure or have let yourself or your family down: not at all 7. Trouble concentrating on things, such as reading the newspaper or watching television: not at all 8. Moving or speaking so slowly that other people could have noticed. Or the opposite - being so fidgety or restless that you have been moving around a lot more than usual: not at all 9. Thoughts that you would be better off or of hurting yourself in some way: not at all Total score: 0 Depression Screening Interpretation: Negative Depression Screening Done: Yes Source: Developed by Drs. Hunter Ahuja, Nusrat Kraus, Ifeanyi Lyn and colleagues, with an educational merry from [employer]. Thrive Questionnaire Date Thrive assessed: 09/29/23 NELSON-7 AMB Questionnaire NELSON-7 Date NELSON - 7 assessed: 09/29/23 Source: Developed by Drs. Hunter Ahuja, Nusrat Kraus, Ifeanyi Lyn and colleagues, with an educational merry from [employer]. Review of Systems Const Denies chills, Denies headache(s) and Denies weight loss ENT Denies headache(s) Card Denies chest pain, Denies syncope, Denies irregular heart rhythm and Denies dyspnea Resp Denies chest congestion, Denies cough and Denies dyspnea GI Denies abdominal pain, Denies change in stool character, Denies nausea and Denies vomiting Musc Denies deformity and Denies joint swelling Neuro Denies syncope and Denies headache(s) Physical exam (Primary Care) Vital Signs: Last Vital Signs Pulse 67 10/31/23 09:29 BP 140/80 H 10/31/23 09:29 Pulse Ox 99 10/31/23 09:29 Oxygen Delivery Method Room Air 10/31/23 09:29 BMI result Body Mass Index 25.3 Tobacco/Smoking Status: Tobacco use Status Tobacco use date assessed 10/31/23 10/31/23 09:35 Patient Tobacco Use Status Former Tobacco user 10/31/23 09:35 e-Cigarette/Vaping Use Never Used 10/31/23 09:35 PHQ-9: PHQ-9 Score PHQ-9: Total score 0 10/31/23 09:35 Depression Screening Interpretation: Negative Thrive Assessment: Date of Thrive Assessment Date Thrive assessed 09/29/23 10/31/23 09:35 Const General: cooperative, comfortable, no acute distress and alert Neck Neck: Yes no lymphadenopathy Thyroid: Thyroid normal Resp Effort & Inspection: normal respiratory effort Auscultation: clear to auscultation bilaterally Percussion: percussion normal Cardio Jugular venous distension: no JVD Palpation: normal PMI Rate: regular rate Rhythm: regular rhythm Heart sounds: S1 normal heart sound present and S2 normal heart sound present GI Inspection: Yes normal to inspection Palpation (GI): No hepatosplenomegaly present Skin General skin exam: no rashes or lesions noted Extrem General: Yes no clubbing, cyanosis or edema Assessment and Plan Assessment & Plan (1) Shoulder pain: Code(s): M25.519 - Pain in unspecified shoulder Plan: ortho referral Orders: Orders XR shoulder LT min 2V Today M25.519 - Pain in unspecified shoulder Referrals Orthopedics Referral M25.519 - Pain in unspecified shoulder Medications: Refilled hydrocodone-acetaminophen 7.5-325 mg 1 tab PO Q6H PRN 120 tabs 0RF pain M96.1 - Postlaminectomy syndrome, not elsewhere classified Coding Level of Care Code Est Pt Level 3 (08674) Diagnoses Shoulder pain M25.519
== END 2023-10-31 09:41 | disposition home or self-care (01) ==
PROVIDERS: PCP Internal Medicine; Visit Provider Internal Medicine
DX: M25.519 Pain in unspecified shoulder (principal)
CPT/HCPCS: 99213

== ENCOUNTER 2023-11-09 08:59 | Outpatient (AMB) | payer MEDICARE, OTHER, SELFPAY ==
[2023-11-09 09:00] VITALS: BMI 25.3
--- NOTE | 2023-11-09 09:00 | MHC.OFFVIS ---
Intake Vital Signs 11/09/23 09:00 Height 5 ft 10 in Weight 176 lb BMI 25.3 Intake Visit Reasons: Bilateral shoulder pain Intake Note: Alfred is a 73 year old Right handed male who presents as a new patient with complaints of progressively worsening bilateral shoulder pains. The patient describes his pains as sharp in nature. The patient has done physical therapy exercises which aggravated his pain. He has had cortisone injections in the past which gave him fairly good relief. Has not had an injection in the last year. He would like to hold off on surgery for as long as possible. Allergies adalimumab [From [facility]A] Allergy (Unknown, Verified 11/09/23 09:18) RASH Hscicmc-QEP-FiM Reductase Inhibitor [YKXLRVC-BDR-CAO REDUCTASE INHIBITOR] Allergy (Unknown, Verified 11/09/23 09:18) SWELLING Medication List - Last Reconciled 11/09/23 by Len Hall MD amlodipine 10 mg PO DAILY clobetasol 0.05% 1 appl topical BID diazepam 5 mg PO etanercept mg subcut QWEEK gabapentin 100 mg PO TID gemfibrozil 600 mg PO BID hydrocodone-acetaminophen 7.5-325 mg 1 tab PO Q6H PRN indomethacin 50 mg (2 x 25 mg) PO BID lisinopril 40 mg PO DAILY omeprazole 40 mg PO DAILY orphenadrine citrate ER 100 mg PO BID secukinumab mg subcut Q4W sildenafil 100 mg PO DAILY PRN tamsulosin 0.4 mg PO DAILY triamcinolone acetonide 0.5% 1 appl topical BID zolpidem 10 mg PO BEDTIME PRN PFSH Medical History Polyuria Hyperlipidemia Psoriatic arthritis Benign essential HTN Primary osteoarthritis of right knee Erectile dysfunction Enlarged prostate without lower urinary tract symptoms (luts) Surgical History History of surgery History of laparoscopic cholecystectomy History of tonsillectomy History of arthroscopy of right knee History of appendectomy Family History Father Degenerative joint disease Mother Psoriasis Rheumatoid arthritis Social History Housing: House Housing Other:: refused to answer Alcohol intake: never Patient Tobacco Use Status: Former Tobacco user e-Cigarette/Vaping Use: Never Used Second Hand Smoke Exposure: No service: No Current occupational status: other (refused) Current occupational exposures/hazards: No Cognitive needs: No Hearing needs: No Vision needs: No Physical Exam Vital Signs: BMI result Body Mass Index 25.3 Const Other: Well-nourished well-developed very friendly male awake alert and oriented x3 in no acute distress Extrem Other: Bilateral upper extremity examination shows good capillary refill, no skin lesions noted, normal sensation light touch Bilateral shoulder examination shows forward flexion to 150 degrees, external rotation to 30 degrees, internal rotation to 40 degrees, positive impingement signs, 4/5 strength with supraspinatus testing, no instability Office Procedures Joint Injection/Drain Joint Injection/Drain Primary Site: left shoulder Prep: site was prepped using aseptic technique Injected: 40 mg of, DepoMedrol and 1% plain lidocaine Procedure: The patient tolerated the procedure well Coding 05966 - Large joint Procedure code (CPT) selection complete Joint Injection/Drain Joint Injection/Drain Primary Site: right shoulder Prep: site was prepped using aseptic technique Injected: 40 mg of, DepoMedrol and 1% plain lidocaine Procedure: The patient tolerated the procedure well Coding 04954 - Large joint Procedure code (CPT) selection complete Results Reviewed Results Reviewed: X-rays of the patient's left shoulder taken today show severe acromioclavicular joint narrowing, a type 2 acromion, no acute bony abnormalities Assessment & Plan Assessment & Plan (1) Impingement syndrome of left shoulder: Code(s): M75.42 - Impingement syndrome of left shoulder (2) Impingement of right shoulder: Code(s): M25.811 - Other specified joint disorders, right shoulder (3) Bilateral shoulder pain: Code(s): M25.511 - Pain in right shoulder; M25.512 - Pain in left shoulder Plan Mr. Soriano presents with bilateral shoulder pains and weakness due to impingement syndrome and possible chronic rotator cuff tearing. I had a lengthy discussion with the patient regarding the treatment options. He wishes to hold off on surgery for as long as possible. I agree with this plan. The risks and benefits of bilateral shoulder cortisone injections were discussed at length with the patient. The patient wished to proceed with the injections. He tolerated the injections well. Will continue with his home exercise program. He will follow up with me on an as-needed basis should his symptoms not plateau at an unacceptable level over the next few months. Feel free to call me at any time should questions regarding his orthopedic management arise. Thank you very much for asking me to see this very friendly gentleman. I spent 22 minutes in reviewing the patient's records and imaging studies, seeing the patient and documenting in the medical record. Orders: Orders AMB Joint Injection/Aspiration Today M75.42 - Impingement syndrome of left shoulder XR shoulder LT min 2V Today M25.512 - Pain in left shoulder AMB Joint Injection/Aspiration Today M25.811 - Other specified joint disorders, right shoulder Coding Level of Care Code New Pt Level 2 (37093) Diagnoses Impingement syndrome of left shoulder M75.42 Impingement of right shoulder M25.811 Bilateral shoulder pain M25.511; M25.512 CPT Codes Coding - 94246 Large joint: 26541 - Large joint ([id number]) Coding - 60278 Large joint: 35890 - Large joint ([id number])
== END 2023-11-09 10:05 | disposition home or self-care (01) ==
PROVIDERS: PCP Internal Medicine; Visit Provider Orthopaedic Surgery
DX: M75.42 Impingement syndrome of left shoulder (principal); M25.811 Other specified joint disorders, right shoulder; M25.511 Pain in right shoulder; M25.512 Pain in left shoulder
CPT/HCPCS: 20610; 99204

== ENCOUNTER 2023-11-09 09:49 | Outpatient (REF) | payer MEDICARE, OTHER, SELFPAY ==
--- NOTE | ~2023-11-09 | XR_ITS ---
EXAMINATION: XR SHOULDER, LEFT CLINICAL INFORMATION: Pain left shoulder COMPARISON: Left shoulder radiograph from 06/15/2014 TECHNIQUE: Two views of the left shoulder. FINDINGS: No acute visible fracture or dislocation. Degenerative arthropathy of the glenohumeral and acromioclavicular joint. Joint space alignment are otherwise maintained. Sclerotic focus along the medial humeral head nonspecific though statistically representing a bone island, stable. Soft tissues are unremarkable. Visualized portions of the chest are unremarkable. XR/XR shoulder LT min 2V IMPRESSION: 1. No acute visible fracture or dislocation. 2. Degenerative arthropathy of the glenohumeral and acromioclavicular joint.
== END 2023-11-09 09:50 | disposition home or self-care (01) ==
LOC: HO.HOSX 09:49
PROVIDERS: Visit Provider Orthopaedic Surgery
DX: M25.512 Pain in left shoulder (principal); M75.42 Impingement syndrome of left shoulder; M25.811 Other specified joint disorders, right shoulder
CPT/HCPCS: 20610; 73030; 99202; J1020

== ENCOUNTER 2023-11-29 09:23 | Outpatient (AMB) | payer MEDICARE, OTHER, SELFPAY ==
[2023-11-29 09:27] VITALS: BP 132/78; PULSE 80; O2SAT 98; BMI 25.0
--- NOTE | 2023-11-29 09:27 | MHC.PC.OV ---
Vital Signs 11/29/23 09:27 Height 5 ft 10 in Weight 174 lb BMI 25.0 BP 132/78 Blood Pressure Location Lt brachial Position Sitting Pulse 80 Pulse Source Pulse Oximeter Pulse Oximetry (%) 98 Oxygen Delivery Method Room Air Intake Visit Reasons: Med Management Information Technology Assistant Required: No Rod Pointer: Not Required per policy Accompanied by: Self / Same As Patient Allergies adalimumab [From [facility]] Allergy (Unknown, Verified 11/29/23 09:27) RASH Mjoooip-SIO-OkH Reductase Inhibitor [QSFJSRR-TKW-IUK REDUCTASE INHIBITOR] Allergy (Unknown, Verified 11/29/23 09:27) SWELLING Medication List - Last Reconciled 11/29/23 by Chad Burk MD amlodipine 10 mg PO DAILY clobetasol 0.05% 1 appl topical BID diazepam 5 mg PO etanercept mg subcut QWEEK gabapentin 100 mg PO TID gemfibrozil 600 mg PO BID hydrocodone-acetaminophen 7.5-325 mg 1 tab PO Q6H PRN indomethacin 50 mg (2 x 25 mg) PO BID lisinopril 40 mg PO DAILY omeprazole 40 mg PO DAILY orphenadrine citrate ER 100 mg PO BID secukinumab mg subcut Q4W sildenafil 100 mg PO DAILY PRN tamsulosin 0.4 mg PO DAILY triamcinolone acetonide 0.5% 1 appl topical BID zolpidem 10 mg PO BEDTIME PRN Tobacco use date assessed: 10/31/23 Fall risk assessment: No Falls in past year Last assessed Fall Risk: 11/29/23 Dental Screening Dental Screen Date: 11/29/23 HPI Med Management HPI Details failed back syndrome; doing well on rx PFSH Medical History Polyuria Hyperlipidemia Psoriatic arthritis Benign essential HTN Primary osteoarthritis of right knee Erectile dysfunction Enlarged prostate without lower urinary tract symptoms (luts) Surgical History History of surgery History of laparoscopic cholecystectomy History of tonsillectomy History of arthroscopy of right knee History of appendectomy Family History Father Degenerative joint disease Mother Psoriasis Rheumatoid arthritis Social History Housing: House Housing Other:: refused to answer Alcohol intake: never Patient Tobacco Use Status: Former Tobacco user e-Cigarette/Vaping Use: Never Used Second Hand Smoke Exposure: No service: No Current occupational status: other (refused) Current occupational exposures/hazards: No Cognitive needs: No Hearing needs: No Vision needs: No Questionnaire Thrive Questionnaire Date Thrive assessed: 09/29/23 NELSON-7 AMB Questionnaire NELSON-7 Date NELSON - 7 assessed: 09/29/23 Source: Developed by Drs. Hunter Ahuja, Nusrat Kraus, Ifeanyi Lyn and colleagues, with an educational merry from [employer]. Review of Systems Const Denies chills, Denies headache(s) and Denies weight loss ENT Denies headache(s) Card Denies chest pain, Denies syncope, Denies irregular heart rhythm and Denies dyspnea Resp Denies chest congestion, Denies cough and Denies dyspnea GI Denies abdominal pain, Denies change in stool character, Denies nausea and Denies vomiting Musc Denies deformity and Denies joint swelling Neuro Denies syncope and Denies headache(s) Physical exam (Primary Care) Vital Signs: Last Vital Signs Pulse 80 11/29/23 09:27 BP 132/78 11/29/23 09:27 Pulse Ox 98 11/29/23 09:27 Oxygen Delivery Method Room Air 11/29/23 09:27 BMI result Body Mass Index 25.0 Tobacco/Smoking Status: Tobacco use Status Tobacco use date assessed 10/31/23 11/29/23 09:33 Patient Tobacco Use Status Former Tobacco user 11/29/23 09:33 e-Cigarette/Vaping Use Never Used 11/29/23 09:33 Thrive Assessment: Date of Thrive Assessment Date Thrive assessed 09/29/23 11/29/23 09:33 Const General: cooperative, comfortable, no acute distress and alert Neck Neck: Yes no lymphadenopathy Thyroid: Thyroid normal Resp Effort & Inspection: normal respiratory effort Auscultation: clear to auscultation bilaterally Percussion: percussion normal Cardio Jugular venous distension: no JVD Palpation: normal PMI Rate: regular rate Rhythm: regular rhythm Heart sounds: S1 normal heart sound present and S2 normal heart sound present GI Inspection: Yes normal to inspection Palpation (GI): No hepatosplenomegaly present Skin General skin exam: no rashes or lesions noted Extrem General: Yes no clubbing, cyanosis or edema Assessment and Plan Assessment & Plan (1) Failed back syndrome: Code(s): M96.1 - Postlaminectomy syndrome, not elsewhere classified Plan: stable; same rx Medications: Refilled hydrocodone-acetaminophen 7.5-325 mg 1 tab PO Q6H PRN 120 tabs 0RF pain M96.1 - Postlaminectomy syndrome, not elsewhere classified Coding Level of Care Code Est Pt Level 3 (56367) Diagnoses Failed back syndrome M96.1
== END 2023-11-29 09:41 | disposition home or self-care (01) ==
PROVIDERS: PCP Internal Medicine; Visit Provider Internal Medicine
DX: M96.1 Postlaminectomy syndrome, not elsewhere classified (principal)
CPT/HCPCS: 99213

== ENCOUNTER 2023-12-30 09:18 | Outpatient (AMB) | payer MEDICARE, OTHER, SELFPAY ==
[2023-12-30 09:21] VITALS: BP 140/82; PULSE 65; O2SAT 98; BMI 25.1
--- NOTE | 2023-12-30 09:21 | MHC.PC.OV ---
Vital Signs 12/30/23 09:21 Height 5 ft 10 in Weight 175 lb BMI 25.1 BP 140/82 H Blood Pressure Location Lt brachial Position Sitting Pulse 65 Pulse Source Pulse Oximeter Pulse Oximetry (%) 98 Oxygen Delivery Method Room Air Intake Visit Reasons: Med Management Crook Operator Required: No Awning Installer: Not Required per policy Accompanied by: Self / Same As Patient Allergies adalimumab [From HUMIRA] Allergy (Unknown, Verified 12/30/23 09:22) RASH Zopebnp-YXY-OxR Reductase Inhibitor [XIWLQFW-JQT-YLF REDUCTASE INHIBITOR] Allergy (Unknown, Verified 12/30/23 09:22) SWELLING Medication List - Last Reconciled 12/30/23 by Chad Burk MD amlodipine 10 mg PO DAILY clobetasol 0.05% 1 appl topical BID diazepam 5 mg PO etanercept mg subcut QWEEK gabapentin 100 mg PO TID gemfibrozil 600 mg PO BID hydrocodone-acetaminophen 7.5-325 mg 1 tab PO Q6H PRN indomethacin 50 mg (2 x 25 mg) PO BID lisinopril 40 mg PO DAILY omeprazole 40 mg PO DAILY orphenadrine citrate ER 100 mg PO BID secukinumab mg subcut Q4W sildenafil 100 mg PO DAILY PRN tamsulosin 0.4 mg PO DAILY triamcinolone acetonide 0.5% 1 appl topical BID zolpidem 10 mg PO BEDTIME PRN Tobacco use date assessed: 10/31/23 Fall risk assessment: No Falls in past year Last assessed Fall Risk: 12/30/23 Dental Screening Dental Screen Date: 11/29/23 HPI Med Management HPI Details chronic pain meds for failed back syndrome; [facility] Medical History Polyuria Hyperlipidemia Psoriatic arthritis Benign essential HTN Primary osteoarthritis of right knee Erectile dysfunction Enlarged prostate without lower urinary tract symptoms (luts) Surgical History History of surgery History of laparoscopic cholecystectomy History of tonsillectomy History of arthroscopy of right knee History of appendectomy Family History Father Degenerative joint disease Mother Psoriasis Rheumatoid arthritis Social History Housing: House Housing Other:: refused to answer Alcohol intake: never Patient Tobacco Use Status: Former Tobacco user e-Cigarette/Vaping Use: Never Used Second Hand Smoke Exposure: No service: No Current occupational status: other (refused) Current occupational exposures/hazards: No Cognitive needs: No Hearing needs: No Vision needs: No Questionnaire Thrive Questionnaire Date Thrive assessed: 09/29/23 NELSON-7 AMB Questionnaire NELSON-7 Date NELSON - 7 assessed: 09/29/23 Source: Developed by Drs. Hunter Ahuja, Nusrat Kraus, Ifeanyi Lyn and colleagues, with an educational merry from [employer]. Review of Systems Const Denies chills, Denies headache(s) and Denies weight loss ENT Denies headache(s) Card Denies chest pain, Denies syncope, Denies irregular heart rhythm and Denies dyspnea Resp Denies chest congestion, Denies cough and Denies dyspnea GI Denies abdominal pain, Denies change in stool character, Denies nausea and Denies vomiting Musc Denies deformity and Denies joint swelling Neuro Denies syncope and Denies headache(s) Physical exam (Primary Care) Vital Signs: Last Vital Signs Pulse 65 12/30/23 09:21 BP 140/82 H 12/30/23 09:21 Pulse Ox 98 12/30/23 09:21 Oxygen Delivery Method Room Air 12/30/23 09:21 BMI result Body Mass Index 25.1 Tobacco/Smoking Status: Tobacco use Status Tobacco use date assessed 10/31/23 12/30/23 09:22 Patient Tobacco Use Status Former Tobacco user 12/30/23 09:22 e-Cigarette/Vaping Use Never Used 12/30/23 09:22 Thrive Assessment: Date of Thrive Assessment Date Thrive assessed 09/29/23 12/30/23 09:22 Const General: cooperative, comfortable, no acute distress and alert Neck Neck: Yes no lymphadenopathy Thyroid: Thyroid normal Resp Effort & Inspection: normal respiratory effort Auscultation: clear to auscultation bilaterally Percussion: percussion normal Cardio Jugular venous distension: no JVD Palpation: normal PMI Rate: regular rate Rhythm: regular rhythm Heart sounds: S1 normal heart sound present and S2 normal heart sound present GI Inspection: Yes normal to inspection Palpation (GI): No hepatosplenomegaly present Skin General skin exam: no rashes or lesions noted Extrem General: Yes no clubbing, cyanosis or edema Assessment and Plan Assessment & Plan (1) Failed back syndrome: Code(s): M96.1 - Postlaminectomy syndrome, not elsewhere classified Plan: stable ;same rx Orders: Orders Complete Blood Count Auto Diff Today D64.9 - Anemia, unspecified Lipid Panel Today E78.5 - Hyperlipidemia, unspecified Thyroid Stimulating Hormone Today E03.9 - Hypothyroidism, unspecified Comprehensive [place]. Panel Fast Today N28.9 - Disorder of kidney and ureter, unspecified Medications: Refilled hydrocodone-acetaminophen 7.5-325 mg 1 tab PO Q6H PRN 120 tabs 0RF pain M96.1 - Postlaminectomy syndrome, not elsewhere classified Coding Level of Care Code Est Pt Level 3 (68713) Diagnoses Failed back syndrome M96.1
== END 2023-12-30 09:41 | disposition home or self-care (01) ==
PROVIDERS: PCP Internal Medicine; Visit Provider Internal Medicine
DX: M96.1 Postlaminectomy syndrome, not elsewhere classified (principal)
CPT/HCPCS: 99213

== ENCOUNTER 2023-12-30 09:51 | Outpatient (REF) | payer MEDICARE, OTHER, SELFPAY ==
[2023-12-30 10:13] LABS: MANUAL DIFF FLAG NO
[2023-12-30 10:42] LABS: Basophils Percent Auto 0.4 % (0-2); Eosinophils Absolute Auto 0.2 X10*3/uL (0.0-0.4); Eosinophils Percent Auto 6.4 % (0-4); Hematocrit 37.6 % (42.0-52.0); Hemoglobin 12.6 g/dl (14.0-18.0); Lymphocytes Absolute Auto 0.6 X10*3/uL (1.2-4.9); Lymphocytes Percent Auto 23.7 % (20-40); Mean Corpuscular HGB Conc 33.5 g/dl (31.0-36.0); Mean Corpuscular Hemoglobin 28.1 pg (27.0-33.0); Mean Corpuscular Volume 83.7 fL (80.0-98.0); Mean Platelet Volume 9.4 fL (9.4-12.4); Monocytes Absolute Auto 0.3 X10*3/uL (0.1-1.2); Monocytes Percent Auto 9.8 % (2-11); Neutrophils Absolute Auto 1.6 x10*3/uL (2.0-8.3); Neutrophils Percent Auto 59.7 % (45-73); Platelet Count 227 X10*3/uL (160-400); Red Blood Count 4.49 X10*6/uL (4.60-5.80); Red Cell Distribution Width 13.6 % (11.0-16.0); White Blood Count 2.7 X10*3/uL (4.8-10.8)
[2023-12-30 11:37] LABS: Alanine Aminotransferase 10 U/L (0-40); Albumin Level 4.4 g/dL (3.5-5.0); Alkaline Phosphatase 44 U/L (39-117); Anion Gap 12 (12-20); Aspartate Amino Transferase 15 U/L (5-37); Bilirubin Total 0.6 mg/dL (0.0-1.0); Blood Urea Nitrogen 13 mg/dL (9-16); Calcium 9.8 mg/dL (8.4-10.2); Carbon Dioxide 28 mmol/L (22-29); Chloride 104 mmol/L (96-108); Cholesterol 173 mg/dL (<200); Estimated Glomerular Filt Rate > 60; Glucose Fasting 98 mg/dL (60-99); HDL Cholesterol 72 mg/dL (>40); LDL Cholesterol Calculated 94 mg/dL (<100); Potassium 4.5 mmol/L (3.3-5.1); Sodium 139 mmol/L (135-145); Total Protein 7.3 g/dL (6.5-8.0); Triglycerides 39 mg/dL (<150)
[2023-12-30 11:55] LABS: Thyroid Stimulating Hormone 0.46 uIU/mL (0.32-4.0)
== END 2023-12-30 09:52 | disposition home or self-care (01) ==
LOC: HO.LAB 09:51
PROVIDERS: PCP Internal Medicine; Visit Provider Internal Medicine
DX: D64.9 Anemia, unspecified (principal); E03.9 Hypothyroidism, unspecified; N28.9 Disorder of kidney and ureter, unspecified; E78.5 Hyperlipidemia, unspecified
CPT/HCPCS: 36415; 80053; 80061; 84443; 85025

== ENCOUNTER 2024-01-27 09:21 | Outpatient (AMB) | payer MEDICARE, OTHER, SELFPAY ==
[2024-01-27 09:22] VITALS: BP 138/72; PULSE 76; O2SAT 98; BMI 25.3
--- NOTE | 2024-01-27 09:22 | A.OFFPC_ITS ---
Vital Signs 01/27/24 09:22 Height 5 ft 10 in Weight 176 lb 0.6 oz BMI 25.3 BP 138/72 Blood Pressure Location Lt brachial Position Sitting Pulse 76 Pulse Source Pulse Oximeter Pulse Oximetry (%) 98 Oxygen Delivery Method Room Air Intake Visit Reasons: Med Management Intake Note: Patient is here to follow up Assistant Foreman Required: No Allergies adalimumab [From HUMIRA] Allergy (Unknown, Verified 01/27/24 09:22) RASH Fdbvsfi-BLO-DyF Reductase Inhibitor [UXXPGWZ-ZMI-HNE REDUCTASE INHIBITOR] Allergy (Unknown, Verified 01/27/24 09:22) SWELLING Medication List - Last Reconciled 01/27/24 by Chad Burk MD amlodipine 10 mg PO DAILY clobetasol 0.05% 1 appl topical BID diazepam 5 mg PO etanercept mg subcut QWEEK gabapentin 100 mg PO TID gemfibrozil 600 mg PO BID hydrocodone-acetaminophen 7.5-325 mg 1 tab PO Q6H PRN indomethacin 50 mg (2 x 25 mg) PO BID lisinopril 40 mg PO DAILY omeprazole 40 mg PO DAILY orphenadrine citrate ER 100 mg PO BID secukinumab mg subcut Q4W sildenafil 100 mg PO DAILY PRN tamsulosin 0.4 mg PO DAILY triamcinolone acetonide 0.5% 1 appl topical BID zolpidem 10 mg PO BEDTIME PRN Tobacco use date assessed: 01/27/24 Fall risk assessment: No Falls in past year Last assessed Fall Risk: 01/27/24 Dental Screening Dental Screen Date: 11/29/23 HPI Med Management HPI Details failed back syndrome on rx; doing well and compliant [facility] Medical History Polyuria Hyperlipidemia Psoriatic arthritis Benign essential HTN Primary osteoarthritis of right knee Erectile dysfunction Enlarged prostate without lower urinary tract symptoms (luts) Surgical History History of surgery History of laparoscopic cholecystectomy History of tonsillectomy History of arthroscopy of right knee History of appendectomy Family History Father Degenerative joint disease Mother Psoriasis Rheumatoid arthritis Social History Housing: House Housing Other:: refused to answer Alcohol intake: never Patient Tobacco Use Status: Former Tobacco user e-Cigarette/Vaping Use: Never Used Second Hand Smoke Exposure: No service: No Current occupational status: other (refused) Current occupational exposures/hazards: No Cognitive needs: No Hearing needs: No Vision needs: No Questionnaire PHQ-9 Over the last 2 weeks, how often have you been bothered by any of the following problems? 1. Little interest or pleasure in doing things: not at all 2. Feeling down, depressed, or hopeless: not at all 3. Trouble falling or staying asleep, or sleeping too much: not at all 4. Feeling tired or having little energy: not at all 5. Poor appetite or overeating: not at all 6. Feeling bad about yourself - or that you are a failure or have let yourself or your family down: not at all 7. Trouble concentrating on things, such as reading the newspaper or watching television: not at all 8. Moving or speaking so slowly that other people could have noticed. Or the opposite - being so fidgety or restless that you have been moving around a lot more than usual: not at all 9. Thoughts that you would be better off or of hurting yourself in some wa y: not at all Total score: 0 Depression Screening Interpretation: Negative Depression Screening Done: Yes Source: Developed by Drs. Hunter Ahuja, Ifeanyi Benson and colleagues, with an educational merry from [employer]. Thrive Questionnaire Date Thrive assessed: 09/29/23 AUDIT C Alcohol Use Questionnaire (AUDIT-C) 1. How often do you have a drink containing alcohol?: Never 3. How often do you have six or more drinks on one occasion?: Never Total Score: 0 Score Reviewed/Action Taken: Yes NELSON-7 AMB Questionnaire NELSON-7 Date NELSON - 7 assessed: 09/29/23 Source: Developed by Drs. Hunter Ahuja, Ifeanyi Benson and colleagues, with an educational merry from [employer]. Review of Systems Const Denies chills, Denies headache(s) and Denies weight loss ENT Denies headache(s) Card Denies chest pain, Denies syncope, Denies irregular heart rhythm and Denies dyspnea Resp Denies chest congestion, Denies cough and Denies dyspnea GI Denies abdominal pain, Denies change in stool character, Denies nausea and Denies vomiting Musc Denies deformity and Denies joint swelling Neuro Denies syncope and Denies headache(s) Physical exam (Primary Care) Vital Signs: Last Vital Signs Pulse 76 01/27/24 09:22 BP 138/72 01/27/24 09:22 Pulse Ox 98 01/27/24 09:22 Oxygen Delivery Method Room Air 01/27/24 09:22 BMI result Body Mass Index 25.3 Tobacco/Smoking Status: Tobacco use Status Tobacco use date assessed 01/27/24 01/27/24 09:28 Patient Tobacco Use Status Former Tobacco user 01/27/24 09:28 e-Cigarette/Vaping Use Never Used 01/27/24 09:28 PHQ-9: PHQ-9 Score PHQ-9: Total score 0 01/27/24 09:29 Depression Screening Interpretation: Negative Thrive Assessment: Date of Thrive Assessment Date Thrive assessed 09/29/23 01/27/24 09:28 Const General: cooperative, comfortable, no acute distress and alert Neck Neck: Yes no lymphadenopathy Thyroid: Thyroid normal Resp Effort & Inspection: normal respiratory effort Auscultation: clear to auscultation bilaterally Percussion: percussion normal Cardio Jugular venous distension: no JVD Palpation: normal PMI Rate: regular rate Rhythm: regular rhythm Heart sounds: S1 normal heart sound present and S2 normal heart sound present GI Inspection: Yes normal to inspection Palpation (GI): No hepatosplenomegaly present Skin General skin exam: no rashes or lesions noted Extrem General: Yes no clubbing, cyanosis or edema Assessment and Plan Assessment & Plan (1) Failed back syndrome: Code(s): M96.1 - Postlaminectomy syndrome, not elsewhere classified Plan: stable; same rx Medications: Refilled hydrocodone-acetaminophen 7.5-325 mg 1 tab PO Q6H PRN 120 tabs 0RF pain M96.1 - Postlaminectomy syndrome, not elsewhere classified Coding Level of Care Code Est Pt Level 3 (78017) Diagnoses Failed back syndrome M96.1
== END 2024-01-27 09:39 | disposition home or self-care (01) ==
PROVIDERS: PCP Internal Medicine; Visit Provider Internal Medicine
DX: M96.1 Postlaminectomy syndrome, not elsewhere classified (principal)
CPT/HCPCS: 99213

== ENCOUNTER 2024-02-07 09:37 | Outpatient (AMB) | payer MEDICARE, OTHER, SELFPAY ==
[2024-02-07 09:42] VITALS: BMI 25.3
--- NOTE | 2024-02-07 09:42 | A.OFFVIS_ITS ---
Vital Signs 02/07/24 09:42 Height 5 ft 10 in Weight 176 lb BMI 25.3 Intake Visit Reasons: ov- Pain in left shoulder Intake Note: Alfred is a 73 year old male who presents with left shoulder pain progressively worsening left shoulder pain and weakness. The patient states that he 1st injured his left shoulder several years ago while raking snow off of his roof. He then aggravated his left shoulder while fixing his shower door. He has failed the last 6 weeks of conservative treatment. He has done physical therapy exercises which aggravated his pain. He has also had cortisone injection therapy which gave him minimal relief. The patient reports weakness when lifting his left hand above shoulder height. Has tried Tylenol and anti- inflammatory medicines which gave him minimal relief. Patient reports he had bilateral shoulder injections on 11/09/2023. Patient states the injection helped his Right shoulder but did not really help his Left shoulder. Allergies adalimumab [From HUMIRA] Allergy (Unknown, Verified 02/07/24 09:51) RASH Jcwkyvg-TJT-DrN Reductase Inhibitor [TNDGUUV-CPA-BPL REDUCTASE INHIBITOR] Allergy (Unknown, Verified 02/07/24 09:51) SWELLING Medication List - Last Reconciled 02/07/24 by Len Hall MD amlodipine 10 mg PO DAILY clobetasol 0.05% 1 appl topical BID diazepam 5 mg PO etanercept mg subcut QWEEK gabapentin 100 mg PO TID gemfibrozil 600 mg PO BID hydrocodone-acetaminophen 7.5-325 mg 1 tab PO Q6H PRN indomethacin 50 mg (2 x 25 mg) PO BID lisinopril 40 mg PO DAILY lorazepam (Ativan) 1 mg PO ONCE omeprazole 40 mg PO DAILY orphenadrine citrate ER 100 mg PO BID secukinumab mg subcut Q4W sildenafil 100 mg PO DAILY PRN tamsulosin 0.4 mg PO DAILY triamcinolone acetonide 0.5% 1 appl topical BID zolpidem 10 mg PO BEDTIME PRN PFSH Medical History Polyuria Hyperlipidemia Psoriatic arthritis Benign essential HTN Primary osteoarthritis of right knee Erectile dysfunction Enlarged prostate without lower urinary tract symptoms (luts) Surgical History History of surgery History of laparoscopic cholecystectomy History of tonsillectomy History of arthroscopy of right knee History of appendectomy Family History Father Degenerative joint disease Mother Psoriasis Rheumatoid arthritis Social History Housing: House Housing Other:: refused to answer Alcohol intake: never Patient Tobacco Use Status: Former Tobacco user e-Cigarette/Vaping Use: Never Used Second Hand Smoke Exposure: No service: No Current occupational status: other (refused) Current occupational exposures/hazards: No Cognitive needs: No Hearing needs: No Vision needs: No Physical Exam Vital Signs: BMI result Body Mass Index 25.3 Const Other: Well-nourished well-developed very friendly male awake alert and oriented x3 in no acute distress Extrem Other: Bilateral upper extremity examination shows good capillary refill, no skin lesions noted, normal sensation light touch Left shoulder examination shows decreased range of motion when compared to his right shoulder, 4/5 strength with supraspinatus testing, positive impingement signs, tenderness over his acromioclavicular joint, no instability Results Reviewed Results Reviewed: X-rays of the patient's left shoulder show severe acromioclavicular joint narrowing, a type 3 acromion, no acute bony abnormalities Assessment & Plan Assessment & Plan (1) Left shoulder pain: Code(s): M25.512 - Pain in left shoulder Category: Medical Plan Mr. Soriano presents with progressively worsening left shoulder pain and weakness most likely due to a full-thickness rotator cuff tear. Thus, I will se nd the patient for an MRI of his left shoulder for further evaluation. I will see him back once the MRI is completed to discuss the findings and treatment options. Feel free to call me at any time should questions regarding his orthopedic management arise. I spent 21 minutes in reviewing the patient's records and imaging studies, seeing the patient and documenting in the medical record. Orders: Orders MR shoulder LT wo con Today M25.312 - Other instability, left shoulder Medications: New lorazepam (Ativan) Take one tab 2 hours before your MRI; take the second tab 30 minutes before your MRI 1 mg PO ONCE 2 tabs 0RF anxiety Coding Level of Care Code Est Pt Level 3 (77316) Diagnoses Left shoulder pain M25.512
== END 2024-02-07 10:07 | disposition home or self-care (01) ==
PROVIDERS: PCP Internal Medicine; Visit Provider Orthopaedic Surgery
DX: M25.512 Pain in left shoulder (principal)
CPT/HCPCS: 99213

== ENCOUNTER → 2024-02-07 09:37 | Outpatient (BNVA) | payer MEDICARE, OTHER, SELFPAY | PROVIDERS: PCP Internal Medicine; Visit Provider Orthopaedic Surgery | DX: M25.512 Pain in left shoulder (principal); M25.812 Other specified joint disorders, left shoulder | CPT/HCPCS: 99212 ==

== ENCOUNTER 2024-03-09 10:39 | Outpatient (AMB) | payer MEDICARE, OTHER, SELFPAY ==
[2024-03-09 10:40] VITALS: BP 130/74; PULSE 70; O2SAT 98; BMI 25.0
--- NOTE | 2024-03-09 10:40 | A.OFFPC_ITS ---
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: Not Required per policy Accompanied by: Self / Same As Patient Allergies adalimumab [From HUMIRA] Allergy (Unknown, Verified 03/09/24 10:40) RASH Zjddmqy-RDQ-WuP Reductase Inhibitor [SJPJKIB-CAY-DED REDUCTASE INHIBITOR] Allergy (Unknown, Verified 03/09/24 10:40) SWELLING Medication List - Last Reconciled 03/09/24 by Chad Burk MD amlodipine 10 mg PO DAILY clobetasol 0.05% 1 appl topical BID diazepam 5 mg PO etanercept mg subcut QWEEK gabapentin 100 mg PO TID gemfibrozil 600 mg PO BID hydrocodone-acetaminophen 7.5-325 mg 1 tab PO Q6H PRN indomethacin 50 mg (2 x 25 mg) PO BID lisinopril 40 mg PO DAILY lorazepam (Ativan) 1 mg PO ONCE omeprazole 40 mg PO DAILY orphenadrine citrate ER 100 mg PO BID secukinumab mg subcut Q4W sildenafil 100 mg PO DAILY PRN tamsulosin 0.4 mg PO DAILY triamcinolone acetonide 0.5% 1 appl topical BID zolpidem 10 mg PO BEDTIME PRN Tobacco use date assessed: 01/27/24 Fall risk assessment: No Falls in past year Last assessed Fall Risk: 03/09/24 Dental Screening Dental Screen Date: 11/29/23 HPI med managment HPI Details failed back syndrome; doing well and compliant [facility] Medical History Polyuria Hyperlipidemia Psoriatic arthritis Benign essential HTN Primary osteoarthritis of right knee Erectile dysfunction Enlarged prostate without lower urinary tract symptoms (luts) Surgical History History of surgery History of laparoscopic cholecystectomy History of tonsillectomy History of arthroscopy of right knee History of appendectomy Family History Father Degenerative joint disease Mother Psoriasis Rheumatoid arthritis Social History Housing: House Housing Other:: refused to answer Alcohol intake: never Patient Tobacco Use Status: Former Tobacco user e-Cigarette/Vaping Use: Never Used Second Hand Smoke Exposure: No service: No Current occupational status: other (refused) Current occupational exposures/hazards: No Cognitive needs: No Hearing needs: No Vision needs: No Questionnaire Thrive Questionnaire Date Thrive assessed: 09/29/23 NELOSN-7 AMB Questionnaire NELSON-7 Date NELSON - 7 assessed: 09/29/23 Source: Developed by Drs. Hunter Ahuja, Nusrat Kraus, Ifeanyi Lyn and colleagues, with an educational merry from [employer]. Review of Systems Const Denies chills, Denies headache(s) and Denies weight loss ENT Denies headache(s) Card Denies chest pain, Denies syncope, Denies irregular heart rhythm and Denies dyspnea Resp Denies chest congestion, Denies cough and Denies dyspnea GI Denies abdominal pain, Denies change in stool character, Denies nausea and Denies vomiting Musc Denies deformity and Denies joint swelling Neuro Denies syncope and Denies headache(s) Physical exam (Primary Care) Vital Signs: Last Vital Signs Pulse 70 03/09/24 10:40 BP 130/74 03/09/24 10:40 Pulse Ox 98 03/09/24 10:40 Oxygen Delivery Method Room Air 03/09/24 10:40 BMI result Body Mass Index 25.0 Tobacco/Smoking Status: Tobacco use Status Tobacco use date assessed 01/27/24 03/09/24 10:45 Patient Tobacco Use Status Former Tobacco user 03/09/24 10:45 e-Cigarette/Vaping Use Never Used 03/09/24 10:45 Thrive Assessment: Date of Thrive Assessment Date Thrive assessed 09/29/23 03/09/24 10:45 Const General: cooperative, comfortable, no acute distress and alert Neck Neck: Yes no lymphadenopathy Thyroid: Thyroid normal Resp Effort & Inspection: normal respiratory effort Auscultation: clear to auscultation bilaterally Percussion: percussion normal Cardio Jugular venous distension: no JVD Palpation: normal PMI Rate: regular rate Rhythm: regular rhythm Heart sounds: S1 normal heart sound present and S2 normal heart sound present GI Inspection: Yes normal to inspection Palpation (GI): No hepatosplenomegaly present Skin General skin exam: no rashes or lesions noted Extrem General: Yes no clubbing, cyanosis or edema Assessment and Plan Assessment & Plan (1) Failed back syndrome: Code(s): M96.1 - Postlaminectomy syndrome, not elsewhere classified Plan: stable; same rx Coding Level of Care Code Est Pt Level 3 (27345) Diagnoses Failed back syndrome M96.1
== END 2024-03-09 10:54 | disposition home or self-care (01) ==
PROVIDERS: PCP Internal Medicine; Visit Provider Internal Medicine
DX: M96.1 Postlaminectomy syndrome, not elsewhere classified (principal)
CPT/HCPCS: 99213

== ENCOUNTER 2024-03-20 08:44 | Outpatient (AMB) | payer MEDICARE, OTHER, SELFPAY ==
--- NOTE | 2024-03-20 08:47 | MHC.OFFVIS ---
Vital Signs 03/20/24 08:48 Height 5 ft 10 in Weight 170 lb BMI 24.4 Handedness Right Intake Visit Reasons: OV- LT shoulder MRI follow up Intake Note: Alfred is a 73 year old rigth hand dominant male who presents today for a MRI review of the left shoulder. The patient describes his pain as sharp in nature. His pain has gotten worse in spite of continued non operative treatments. He has tried Tylenol and anti-inflammatory medicines which gave him minimal relief. He has also done physical therapy exercises which aggravated his pain. The patient has difficulty lifting his left hand above shoulder height. Allergies adalimumab [From HUMIRA] Allergy (Unknown, Verified 03/20/24 08:49) RASH Vbiyxod-FMA-LrX Reductase Inhibitor [TZBPXWJ-ZUD-CFJ REDUCTASE INHIBITOR] Allergy (Unknown, Verified 03/20/24 08:49) SWELLING Medication List - Last Reconciled 03/20/24 by Len Hall MD amlodipine 10 mg PO DAILY clobetasol 0.05% 1 appl topical BID diazepam 5 mg PO etanercept mg subcut QWEEK gabapentin 100 mg PO TID gemfibrozil 600 mg PO BID hydrocodone-acetaminophen 7.5-325 mg 1 tab PO Q6H PRN indomethacin 50 mg (2 x 25 mg) PO BID lisinopril 40 mg PO DAILY lorazepam (Ativan) 1 mg PO ONCE omeprazole 40 mg PO DAILY orphenadrine citrate ER 100 mg PO BID secukinumab mg subcut Q4W sildenafil 100 mg PO DAILY PRN tamsulosin 0.4 mg PO DAILY triamcinolone acetonide 0.5% 1 appl topical BID zolpidem 10 mg PO BEDTIME PRN PFSH Medical History Polyuria Hyperlipidemia Psoriatic arthritis Benign essential HTN Primary osteoarthritis of right knee Erectile dysfunction Enlarged prostate without lower urinary tract symptoms (luts) Surgical History History of surgery History of laparoscopic cholecystectomy History of tonsillectomy History of arthroscopy of right knee History of appendectomy Family History Father Degenerative joint disease Mother Psoriasis Rheumatoid arthritis Social History Housing: House Housing Other:: refused to answer Alcohol intake: never Patient Tobacco Use Status: Former Tobacco user e-Cigarette/Vaping Use: Never Used Second Hand Smoke Exposure: No service: No Current occupational status: other (refused) Current occupational exposures/hazards: No Cognitive needs: No Hearing needs: No Vision needs: No Physical Exam Vital Signs: BMI result Body Mass Index 24.4 Const Other: Well-nourished well-developed very friendly male awake alert and oriented x3 in no acute distress Extrem Other: Bilateral upper extremity examination shows good capillary refill, no skin lesions noted, normal sensation light touch Left shoulder examination shows decreased range of motion when compared to right shoulder, 4+ out of 5 strength with supraspinatus testing, positive impingement signs, tenderness over his acromioclavicular joint, no instability Results Reviewed Results Reviewed: MRI of the patient's left shoulder show severe acromioclavicular joint narrowing, a type 3 acromion, signal change within the supraspinatus tendon due to rotator cuff tendinosis versus a small rotator cuff tear Assessment & Plan Assessment & Plan (1) Impingement syndrome of left shoulder: Code(s): M75.42 - Impingement syndrome of left shoulder Category: Medical Plan Mr. Soriano presents with progressively worsening left shoulder pain due to impingement syndrome, acromioclavicular joint arthritis and rotator cuff tendinosis versus a small rotator cuff tear. I had a lengthy discussion with the patient regarding the treatment options. At this point the patient has failed continued non operative treatments. The risks and benefits of left shoulder surgery were discussed at length with the patient. The patient is considering undergoing left shoulder surgery later this year. He will contact my office to pick a surgery date when he chooses to do so. Surgery will involve left shoulder diagnostic arthroscopy with distal clavicle excision, acromioplasty and possible rotator cuff repair showed a full-thickness tear be found at the time of his surgery. The patient will continue with his range of motion exercises in the meantime. Feel free to call me at any time should questions regarding his orthopedic management arise. I spent 20 minutes in reviewing the patient's records and imaging studies, seeing the patient and documenting in the medical record. Coding Level of Care Code Est Pt Level 3 (64843) Diagnoses Impingement syndrome of left shoulder M75.42
[2024-03-20 08:48] VITALS: BMI 24.4
== END 2024-03-20 09:10 | disposition home or self-care (01) ==
PROVIDERS: PCP Internal Medicine; Visit Provider Orthopaedic Surgery
DX: M75.42 Impingement syndrome of left shoulder (principal)
CPT/HCPCS: 99214

== ENCOUNTER → 2024-03-20 08:44 | Outpatient (BNVA) | payer MEDICARE, OTHER, SELFPAY | PROVIDERS: PCP Internal Medicine; Visit Provider Orthopaedic Surgery | DX: M75.42 Impingement syndrome of left shoulder (principal) | CPT/HCPCS: 99212 ==

== ENCOUNTER 2024-03-30 09:21 | Outpatient (AMB) | payer MEDICARE, OTHER, SELFPAY ==
[2024-03-30 09:23] VITALS: BP 100/60; PULSE 70; O2SAT 98; BMI 24.7
--- NOTE | 2024-03-30 09:23 | A.OFFPC_ITS ---
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 Accompanied by: Self / Same As Patient Allergies adalimumab [From HUMIRA] Allergy (Unknown, Verified 03/30/24 09:24) RASH Xblkdie-MEW-ZkH Reductase Inhibitor [ISTIVIS-HBB-GOB REDUCTASE INHIBITOR] Allergy (Unknown, Verified 03/30/24 09:24) SWELLING Medication List - Last Reconciled 03/30/24 by Chad Burk MD amlodipine 10 mg PO DAILY clobetasol 0.05% 1 appl topical BID diazepam 5 mg PO etanercept mg subcut QWEEK gabapentin 100 mg PO TID gemfibrozil 600 mg PO BID hydrocodone-acetaminophen 7.5-325 mg 1 tab PO Q6H PRN indomethacin 50 mg (2 x 25 mg) PO BID lisinopril 40 mg PO DAILY lorazepam (Ativan) 1 mg PO ONCE omeprazole 40 mg PO DAILY orphenadrine citrate ER 100 mg PO BID secukinumab mg subcut Q4W sildenafil 100 mg PO DAILY PRN tamsulosin 0.4 mg PO DAILY triamcinolone acetonide 0.5% 1 appl topical BID zolpidem 10 mg PO BEDTIME PRN Tobacco use date assessed: 01/27/24 Fall risk assessment: No Falls in past year Last assessed Fall Risk: 03/30/24 Dental Screening Dental Screen Date: 11/29/23 HPI Med Management HPI Details failed back syndrome; compliant with regimen PFSH Medical History Polyuria Hyperlipidemia Psoriatic arthritis Benign essential HTN Primary osteoarthritis of right knee Erectile dysfunction Enlarged prostate without lower urinary tract symptoms (luts) Surgical History History of surgery History of laparoscopic cholecystectomy History of tonsillectomy History of arthroscopy of right knee History of appendectomy Family History Father Degenerative joint disease Mother Psoriasis Rheumatoid arthritis Social History Housing: House Housing Other:: refused to answer Alcohol intake: never Patient Tobacco Use Status: Former Tobacco user e-Cigarette/Vaping Use: Never Used Second Hand Smoke Exposure: No service: No Current occupational status: other (refused) Current occupational exposures/hazards: No Cognitive needs: No Hearing needs: No Vision needs: No Questionnaire Thrive Questionnaire Date Thrive assessed: 09/29/23 NELSON-7 AMB Questionnaire NELSON-7 Date NELSON - 7 assessed: 09/29/23 Source: Developed by Drs. Hunter Ahuja, Nusrat Kraus, Ifeanyi Lyn and colleagues, with an educational merry from [employer]. Review of Systems Const Denies chills, Denies headache(s) and Denies weight loss ENT Denies headache(s) Card Denies chest pain, Denies syncope, Denies irregular heart rhythm and Denies dyspnea Resp Denies chest congestion, Denies cough and Denies dyspnea GI Denies abdominal pain, Denies change in stool character, Denies nausea and Denies vomiting Musc Denies deformity and Denies joint swelling Neuro Denies syncope and Denies headache(s) Physical exam (Primary Care) Vital Signs: Last Vital Signs Pulse 70 03/30/24 09:23 BP 100/60 03/30/24 09:23 Pulse Ox 98 03/30/24 09:23 Oxygen Delivery Method Room Air 03/30/24 09:23 BMI result Body Mass Index 24.7 Tobacco/Smoking Status: Tobacco use Status Tobacco use date assessed 01/27/24 03/30/24 09:24 Patient Tobacco Use Status Former Tobacco user 03/30/24 09:24 e-Cigarette/Vaping Use Never Used 03/30/24 09:24 Thrive Assessment: Date of Thrive Assessment Date Thrive assessed 09/29/23 03/30/24 09:24 Const General: cooperative, comfortable, no acute distress and alert Neck Neck: Yes no lymphadenopathy Thyroid: Thyroid normal Resp Effort & Inspection: normal respiratory effort Auscultation: clear to auscultation bilaterally Percussion: percussion normal Cardio Jugular venous distension: no JVD Palpation: normal PMI Rate: regular rate Rhythm: regular rhythm Heart sounds: S1 normal heart sound present and S2 normal heart sound present GI Inspection: Yes normal to inspection Palpation (GI): No hepatosplenomegaly present Skin General skin exam: no rashes or lesions noted Extrem General: Yes no clubbing, cyanosis or edema Assessment and Plan Assessment & Plan (1) Failed back syndrome: Code(s): M96.1 - Postlaminectomy syndrome, not elsewhere classified Plan: stable; same rx Medications: Refilled hydrocodone-acetaminophen 7.5-325 mg 1 tab PO Q6H PRN 120 tabs 0RF pain M96.1 - Postlaminectomy syndrome, not elsewhere classified Coding Level of Care Code Est Pt Level 3 (90299) Diagnoses Failed back syndrome M96.1
== END 2024-03-30 09:40 | disposition home or self-care (01) ==
PROVIDERS: PCP Internal Medicine; Visit Provider Internal Medicine
DX: M96.1 Postlaminectomy syndrome, not elsewhere classified (principal)
CPT/HCPCS: 99213

== ENCOUNTER 2024-04-30 09:26 | Outpatient (AMB) | payer MEDICARE, OTHER, SELFPAY ==
[2024-04-30 09:27] VITALS: BP 138/78; PULSE 83; O2SAT 98; BMI 24.7
--- NOTE | 2024-04-30 09:27 | A.OFFPC_ITS ---
Vital Signs 04/30/24 09:27 Height 5 ft 10 in Weight 172 lb BMI 24.7 BP 138/78 Blood Pressure Location Lt brachial Position Sitting Pulse 83 Pulse Source Pulse Oximeter Pulse Oximetry (%) 98 Oxygen Delivery Method Room Air Intake Visit Reasons: Med Management Allergies adalimumab [From HUMIRA] Allergy (Unknown, Verified 04/30/24 09:28) RASH Zizvtem-WFH-WpC Reductase Inhibitor [KQUHZUN-GMB-GVU REDUCTASE INHIBITOR] Allergy (Unknown, Verified 04/30/24 09:28) SWELLING Medication List - Last Reconciled 04/30/24 by Chad Burk MD amlodipine 10 mg PO DAILY clobetasol 0.05% 1 appl topical BID diazepam 5 mg PO etanercept mg subcut QWEEK gabapentin 100 mg PO TID gemfibrozil 600 mg PO BID hydrocodone-acetaminophen 7.5-325 mg 1 tab PO Q6H PRN indomethacin 50 mg (2 x 25 mg) PO BID lisinopril 40 mg PO DAILY lorazepam (Ativan) 1 mg PO ONCE omeprazole 40 mg PO DAILY orphenadrine citrate ER 100 mg PO BID secukinumab mg subcut Q4W sildenafil 100 mg PO DAILY PRN tamsulosin 0.4 mg PO DAILY triamcinolone acetonide 0.5% 1 appl topical BID zolpidem 10 mg PO BEDTIME PRN Tobacco use date assessed: 01/27/24 Fall risk assessment: No Falls in past year Last assessed Fall Risk: 04/30/24 Dental Screening Dental Screen Date: 11/29/23 HPI Med Management HPI Details failed back syndrome; doing well and compliant on rx PFSH Medical History Polyuria Hyperlipidemia Psoriatic arthritis Benign essential HTN Primary osteoarthritis of right knee Erectile dysfunction Enlarged prostate without lower urinary tract symptoms (luts) Surgical History History of surgery History of laparoscopic cholecystectomy History of tonsillectomy History of arthroscopy of right knee History of appendectomy Family History Father Degenerative joint disease Mother Psoriasis Rheumatoid arthritis Social History Housing: House Housing Other:: refused to answer Alcohol intake: never Patient Tobacco Use Status: Former Tobacco user e-Cigarette/Vaping Use: Never Used Second Hand Smoke Exposure: No service: No Current occupational status: other (refused) Current occupational exposures/hazards: No Cognitive needs: No Hearing needs: No Vision needs: No Questionnaire PHQ-9 Over the last 2 weeks, how often have you been bothered by any of the following problems? 1. Little interest or pleasure in doing things: not at all 2. Feeling down, depressed, or hopeless: not at all 3. Trouble falling or staying asleep, or sleeping too much: not at all 4. Feeling tired or having little energy: not at all 5. Poor appetite or overeating: not at all 6. Feeling bad about yourself - or that you are a failure or have let yourself or your family down: not at all 7. Trouble concentrating on things, such as reading the newspaper or watching television: not at all 8. Moving or speaking so slowly that other people could have noticed. Or the opposite - being so fidgety or restless that you have been moving around a lot more than usual: not at all 9. Thoughts that you would be better off or of hurting yourself in some way: not at all Total score: 0 Depression Screening Interpretation: Negative Depression Screening Done: Yes Source: Developed by Drs. Hunter Ahuja, Ifeanyi Benson and colleagues, with an educational merry from [employer]. Thrive Questionnaire Date Thrive assessed: 09/29/23 AUDIT C Alcohol Use Questionnaire (AUDIT-C) 1. How often do you have a drink containing alcohol?: Never 3. How often do you have six or more drinks on one occasion?: Never Total Score: 0 Score Reviewed/Action Taken: Yes NELSON-7 AMB Questionnaire NELSON-7 Date NELSON - 7 assessed: 09/29/23 Source: Developed by Drs. Hunter Ahuja, Ifeanyi Benson and colleagues, with an educational merry from [employer]. Review of Systems Const Denies chills, Denies headache(s) and Denies weight loss ENT Denies headache(s) Card Denies chest pain, Denies syncope, Denies irregular heart rhythm and Denies dyspnea Resp Denies chest congestion, Denies cough and Denies dyspnea GI Denies abdominal pain, Denies change in stool character, Denies nausea and Denies vomiting Musc Denies deformity and Denies joint swelling Neuro Denies syncope and Denies headache(s) Physical exam (Primary Care) Vital Signs: Last Vital Signs Pulse 83 04/30/24 09:27 BP 138/78 04/30/24 09:27 Pulse Ox 98 04/30/24 09:27 Oxygen Delivery Method Room Air 04/30/24 09:27 BMI result Body Mass Index 24.7 Tobacco/Smoking Status: Tobacco use Status Tobacco use date assessed 01/27/24 04/30/24 09:31 Patient Tobacco Use Status Former Tobacco user 04/30/24 09:31 e-Cigarette/Vaping Use Never Used 04/30/24 09:31 PHQ-9: PHQ-9 Score PHQ-9: Total score 0 04/30/24 09:31 Depression Screening Interpretation: Negative Thrive Assessment: Date of Thrive Assessment Date Thrive assessed 09/29/23 04/30/24 09:31 Const General: cooperative, comfortable, no acute distress and alert Neck Neck: Yes no lymphadenopathy Thyroid: Thyroid normal Resp Effort & Inspection: normal respiratory effort Auscultation: clear to auscultation bilaterally Percussion: percussion normal Cardio Jugular venous distension: no JVD Palpation: normal PMI Rate: regular rate Rhythm: regular rhythm Heart sounds: S1 normal heart sound present and S2 normal heart sound present GI Inspection: Yes normal to inspection Palpation (GI): No hepatosplenomegaly present Skin General skin exam: no rashes or lesions noted Extrem General: Yes no clubbing, cyanosis or edema Assessment and Plan Assessment & Plan (1) Failed back syndrome: Code(s): M96.1 - Postlaminectomy syndrome, not elsewhere classified Plan: stable; same rx Medications: Refilled hydrocodone-acetaminophen 7.5-325 mg 1 tab PO Q6H PRN 120 tabs 0RF pain M96.1 - Postlaminectomy syndrome, not elsewhere classified Coding Level of Care Code Est Pt Level 3 (87311) Diagnoses Failed back syndrome M96.1
== END 2024-04-30 09:41 | disposition home or self-care (01) ==
PROVIDERS: PCP Internal Medicine; Visit Provider Internal Medicine
DX: M96.1 Postlaminectomy syndrome, not elsewhere classified (principal)
CPT/HCPCS: 99213

== ENCOUNTER 2024-05-31 09:22 | Outpatient (AMB) | payer MEDICARE, OTHER, SELFPAY ==
[2024-05-31 09:23] VITALS: BP 138/72; PULSE 68; O2SAT 96; BMI 24.7
--- NOTE | 2024-05-31 09:23 | A.OFFPC_ITS ---
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 Accompanied by: Self / Same As Patient Allergies adalimumab [From [facility]UMIRA] Allergy (Unknown, Verified 05/31/24 09:23) RASH Mwjudlf-VIJ-OrV Reductase Inhibitor [VELBIZM-KXW-GVC REDUCTASE INHIBITOR] Allergy (Unknown, Verified 05/31/24 09:23) SWELLING Medication List - Last Reconciled 05/31/24 by Chad Burk MD amlodipine 10 mg PO DAILY clobetasol 0.05% 1 appl topical BID diazepam 5 mg PO etanercept mg subcut QWEEK gabapentin 100 mg PO TID gemfibrozil 600 mg PO BID hydrocodone-acetaminophen 7.5-325 mg 1 tab PO Q6H PRN indomethacin 50 mg (2 x 25 mg) PO BID lisinopril 40 mg PO DAILY lorazepam (Ativan) 1 mg PO ONCE omeprazole 40 mg PO DAILY orphenadrine citrate ER 100 mg PO BID secukinumab mg subcut Q4W sildenafil 100 mg PO DAILY PRN tamsulosin 0.4 mg PO DAILY triamcinolone acetonide 0.5% 1 appl topical BID zolpidem 10 mg PO BEDTIME PRN Tobacco use date assessed: 01/27/24 Fall risk assessment: No Falls in past year Last assessed Fall Risk: 05/31/24 Dental Screening Dental Screen Date: 11/29/23 HPI Med Management HPI Details failed back syndrome; doing well on rx; compliant [facility] Medical History Polyuria Hyperlipidemia Psoriatic arthritis Benign essential HTN Primary osteoarthritis of right knee Erectile dysfunction Enlarged prostate without lower urinary tract symptoms (luts) Surgical History History of surgery History of laparoscopic cholecystectomy History of tonsillectomy History of arthroscopy of right knee History of appendectomy Family History Father Degenerative joint disease Mother Psoriasis Rheumatoid arthritis Social History Housing: House Housing Other:: refused to answer Alcohol intake: never Patient Tobacco Use Status: Former Tobacco user Tobacco use type: Cigarette e-Cigarette/Vaping Use: Never Used Second Hand Smoke Exposure: No service: No Current occupational status: other (refused) Current occupational exposures/hazards: No Cognitive needs: No Hearing needs: No Vision needs: No Questionnaire PHQ-9 Over the last 2 weeks, how often have you been bothered by any of the following problems? 1. Little interest or pleasure in doing things: not at all 2. Feeling down, depressed, or hopeless: not at all 3. Trouble falling or staying asleep, or sleeping too much: not at all 4. Feeling tired or having little energy: not at all 5. Poor appetite or overeating: not at all 6. Feeling bad about yourself - or that you are a failure or have let yourself or your family down: not at all 7. Trouble concentrating on things, such as reading the newspaper or watching television: not at all 8. Moving or speaking so slowly that other people could have noticed. Or the opposite - being so fidgety or restless that you have been moving around a lot more than usual: not at all 9. Thoughts that you would be better off or of hurting yourself in some way: not at all Total score: 0 Depression Screening Interpretation: Negative Depression Screening Done: Yes Source: Developed by Drs. Hunter Ahuja, Nusrat Kraus, Ifeanyi Lyn and colleagues, with an educational merry from [employer]. Thrive Questionnaire Date Thrive assessed: 09/29/23 AUDIT C Alcohol Use Questionnaire (AUDIT-C) 1. How often do you have a drink containing alcohol?: Never 3. How often do you have six or more drinks on one occasion?: Never Total Score: 0 Score Reviewed/Action Taken: Yes NELSON-7 AMB Questionnaire NELSON-7 Date NELSON - 7 assessed: 09/29/23 Source: Developed by Drs. Hunter Ahuja, Ifeanyi Benson and colleagues, with an educational merry from [employer]. Review of Systems Const Denies chills, Denies headache(s) and Denies weight loss ENT Denies headache(s) Card Denies chest pain, Denies syncope, Denies irregular heart rhythm and Denies dyspnea Resp Denies chest congestion, Denies cough and Denies dyspnea GI Denies abdominal pain, Denies change in stool character, Denies nausea and Denies vomiting Musc Denies deformity and Denies joint swelling Neuro Denies syncope and Denies headache(s) Physical exam (Primary Care) Vital Signs: Last Vital Signs Pulse 68 05/31/24 09:23 BP 138/72 05/31/24 09:23 Pulse Ox 96 05/31/24 09:23 Oxygen Delivery Method Room Air 05/31/24 09:23 BMI result Body Mass Index 24.7 Tobacco/Smoking Status: Tobacco use Status Tobacco use date assessed 01/27/24 05/31/24 09:27 Patient Tobacco Use Status Former Tobacco user 05/31/24 09:27 Tobacco use type Cigarette 05/31/24 09:27 e-Cigarette/Vaping Use Never Used 05/31/24 09:27 PHQ-9: PHQ-9 Score PHQ-9: Total score 0 05/31/24 09:27 Depression Screening Interpretation: Negative Thrive Assessment: Date of Thrive Assessment Date Thrive assessed 09/29/23 05/31/24 09:27 Const General: cooperative, comfortable, no acute distress and alert Neck Neck: Yes no lymphadenopathy Thyroid: Thyroid normal Resp Effort & Inspection: normal respiratory effort Auscultation: clear to auscultation bilaterally Percussion: percussion normal Cardio Jugular venous distension: no JVD Palpation: normal PMI Rate: regular rate Rhythm: regular rhythm Heart sounds: S1 normal heart sound present and S2 normal heart sound present GI Inspection: Yes normal to inspection Palpation (GI): No hepatosplenomegaly present Skin General skin exam: no rashes or lesions noted Extrem General: Yes no clubbing, cyanosis or edema Assessment and Plan Assessment & Plan (1) Failed back syndrome: Code(s): M96.1 - Postlaminectomy syndrome, not elsewhere classified Plan: stable; same rx Medications: Refilled hydrocodone-acetaminophen 7.5-325 mg 1 tab PO Q6H PRN 120 tabs 0RF pain M96.1 - Postlaminectomy syndrome, not elsewhere classified sildenafil administer 30 minutes to 4 hours before activity 100 mg PO DAILY PRN 30 tabs 8RF sexual activity Coding Level of Care Code Est Pt Level 3 (29198) Diagnoses Failed back syndrome M96.1
== END 2024-05-31 09:36 | disposition home or self-care (01) ==
PROVIDERS: PCP Internal Medicine; Visit Provider Internal Medicine
DX: M96.1 Postlaminectomy syndrome, not elsewhere classified (principal)
CPT/HCPCS: 99213

== ENCOUNTER → 2024-06-28 10:09 | Outpatient (BNVA) | payer MEDICARE, OTHER, SELFPAY | PROVIDERS: PCP Internal Medicine; Visit Provider Physician Assistant | DX: Z23 Encounter for immunization (principal); M96.1 Postlaminectomy syndrome, not elsewhere classified | CPT/HCPCS: 90471; 90656; 99212 ==

== ENCOUNTER 2024-06-28 10:15 | Outpatient (AMB) | payer MEDICARE, OTHER, SELFPAY ==
--- NOTE | 2024-06-28 10:45 | MHC.PC.OV ---
Vital Signs 06/28/24 10:47 Height 5 ft 10 in Weight 172 lb 6 oz BMI 24.7 BP 130/74 Blood Pressure Location Lt brachial Position Sitting Pulse 72 Pulse Source Pulse Oximeter Pulse Oximetry (%) 97 Oxygen Delivery Method Room Air Intake Visit Reasons: med management per Dr Burk Intake Note: Patient is here to follow up on Med management (Dr Burk pt). 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 I am covering for his regular provider who is away. History of chronic back pain on 30 MME/day [facility] Medical History Polyuria Hyperlipidemia Psoriatic arthritis Benign essential HTN Primary osteoarthritis of right knee Erectile dysfunction Enlarged prostate without lower urinary tract symptoms (luts) Surgical History History of surgery History of laparoscopic cholecystectomy History of tonsillectomy History of arthroscopy of right knee History of appendectomy Family History Father Degenerative joint disease Mother Psoriasis Rheumatoid arthritis Social History Housing: House Housing Other:: refused to answer Alcohol intake: never Patient Tobacco Use Status: Former Tobacco user Tobacco use type: Cigarette e-Cigarette/Vaping Use: Never Used Second Hand Smoke Exposure: No service: No Current occupational status: other Current occupational exposures/hazards: No Cognitive needs: No Hearing needs: No Vision needs: No Questionnaire Thrive Questionnaire Date Thrive assessed: 09/29/23 NELSON-7 AMB Questionnaire NELSON-7 Date NELSON - 7 assessed: 09/29/23 Source: Developed by Drs. Hunter Ahuja, Nusrat Kraus, Ifeanyi Lyn and colleagues, with an educational merry from [employer]. Physical exam (Primary Care) Vital Signs: Last Vital Signs Pulse 72 06/28/24 10:47 BP 130/74 06/28/24 10:47 Pulse Ox 97 06/28/24 10:47 Oxygen Delivery Method Room Air 06/28/24 10:47 BMI result Body Mass Index 24.7 Tobacco/Smoking Status: Tobacco use Status Tobacco use date assessed 06/28/24 06/28/24 11:01 Patient Tobacco Use Status Former Tobacco user 06/28/24 11:01 Tobacco use type Cigarette 06/28/24 11:01 e-Cigarette/Vaping Use Never Used 06/28/24 11:01 Thrive Assessment: Date of Thrive Assessment Date Thrive assessed 09/29/23 06/28/24 11:01 Const Other: Apart from vitals, no exam was done Office Procedures Flu Questionnaire Does the patient have a severe egg allergy?: No Does the patient have severe life threatening allergies?: No Does the patient have a fever or illness today?: No Has the patient ever had Guillain-[place] Syndrome?: No Has the patient ever had any past reaction to a flu shot?: No Immunizations Fluarix Triv [id number] (PF) 45 mcg (15 mcg x 3)/0.5 mL IM syringe Performing Provider: Wesley Brown MD [facility] [place] [facility] Administered by: Erika Fox LPN on 06/28/24 11:09 Dose Route Admin Location Dispensed Lot Number Expiration Date [facility] Ethical [employer]acker 0.5 mL IM Left Deltoid 0.5 mL [id number] 03/25/25 14836-185-70 [employer] VIS Given Date VIS Provided VIS Publication Date 06/28/24 Single Vaccine 21 Eligibility Eligibility Date Funding Source Not [facility] Eligible 06/28/24 Private Coding Level of Care Code Est Pt Level 3 (69090) Complex EM visit Add On G2211 Diagnoses Failed back syndrome M96.1 Assessment & Plan Assessment & Plan (1) Failed back syndrome: Code(s): M96.1 - Postlaminectomy syndrome, not elsewhere classified Category: Medical Plan: Opiate prescription refilled. Follow up with his PCP next month. 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 Missing entry for May. However patient reports he had his prescription refilled in May at the pharmacy. Orders: Orders Influenza [id number] Immunization Today Z23 - Encounter for immunization Medications: Refilled hydrocodone-acetaminophen 7.5-325 mg 1 tab PO Q6H PRN 120 tabs 0RF pain M96.1 - Postlaminectomy syndrome, not elsewhere classified hydrocodone-acetaminophen 7.5-325 mg 1 tab PO Q6H PRN 120 tabs 0RF pain M96.1 - Postlaminectomy syndrome, not elsewhere classified
[2024-06-28 10:47] VITALS: BP 130/74; PULSE 72; O2SAT 97; BMI 24.7
== END 2024-06-28 11:29 | disposition home or self-care (01) ==
PROVIDERS: PCP Internal Medicine; Visit Provider Internal Medicine
DX: Z23 Encounter for immunization (principal); M96.1 Postlaminectomy syndrome, not elsewhere classified

== ENCOUNTER 2024-07-31 09:22 | Outpatient (AMB) | payer MEDICARE, OTHER, SELFPAY ==
[2024-07-31 09:27] VITALS: BP 144/84; PULSE 74; O2SAT 95; BMI 24.4
--- NOTE | 2024-07-31 09:27 | A.OFFPC_ITS ---
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 Accompanied by: Self / Same As Patient Allergies adalimumab [From HUMIRA] Allergy (Unknown, Verified 07/31/24 09:27) RASH Qndjipw-PLZ-AeG Reductase Inhibitor [TYFLQLP-ODK-BOM REDUCTASE INHIBITOR] Allergy (Unknown, Verified 07/31/24 09:27) SWELLING Medication List - Last Reconciled 07/31/24 by Chad Burk MD amlodipine 10 mg PO DAILY clobetasol 0.05% 1 appl topical BID diazepam 5 mg PO etanercept mg subcut QWEEK gabapentin 100 mg PO TID gemfibrozil 600 mg PO BID hydrocodone-acetaminophen 7.5-325 mg 1 tab PO Q6H PRN indomethacin 50 mg (2 x 25 mg) PO BID lisinopril 40 mg PO DAILY lorazepam (Ativan) 1 mg PO ONCE omeprazole 40 mg PO DAILY orphenadrine citrate ER 100 mg PO BID secukinumab mg subcut Q4W sildenafil 100 mg PO DAILY PRN tamsulosin 0.4 mg PO DAILY triamcinolone acetonide 0.5% 1 appl topical BID zolpidem 10 mg PO BEDTIME PRN Tobacco use date assessed: 06/28/24 Fall risk assessment: No Falls in past year Last assessed Fall Risk: 07/31/24 Dental Screening Dental Screen Date: 11/29/23 HPI Med Management HPI Details chronic failed back syndrome; doing well and compliant [facility] Medical History Polyuria Hyperlipidemia Psoriatic arthritis Benign essential HTN Primary osteoarthritis of right knee Erectile dysfunction Enlarged prostate without lower urinary tract symptoms (luts) Surgical History History of surgery History of laparoscopic cholecystectomy History of tonsillectomy History of arthroscopy of right knee History of appendectomy Family History Father Degenerative joint disease Mother Psoriasis Rheumatoid arthritis Social History Housing: House Housing Other:: refused to answer Alcohol intake: never Patient Tobacco Use Status: Former Tobacco user Tobacco use type: Cigarette e-Cigarette/Vaping Use: Never Used Second Hand Smoke Exposure: No service: No Current occupational status: other Current occupational exposures/hazards: No Cognitive needs: No Hearing needs: No Vision needs: No Questionnaire Thrive Questionnaire Date Thrive assessed: 09/29/23 NELSON-7 AMB Questionnaire NELSON-7 Date NELSON - 7 assessed: 09/29/23 Source: Developed by Drs. Hunter Ahuja, Nusrat Kraus, Ifeanyi Lyn and colleagues, with an educational merry from [employer]. Review of Systems Const Denies chills, Denies headache(s) and Denies weight loss ENT Denies headache(s) Card Denies chest pain, Denies syncope, Denies irregular heart rhythm and Denies dyspnea Resp Denies chest congestion, Denies cough and Denies dyspnea GI Denies abdominal pain, Denies change in stool character, Denies nausea and Denies vomiting Musc Denies deformity and Denies joint swelling Neuro Denies syncope and Denies headache(s) Physical exam (Primary Care) Vital Signs: Last Vital Signs Pulse 74 07/31/24 09:27 BP 144/84 H 07/31/24 09:27 Pulse Ox 95 07/31/24 09:27 Oxygen Delivery Method Room Air 07/31/24 09:27 BMI result Body Mass Index 24.4 Tobacco/Smoking Status: Tobacco use Status Tobacco use date assessed 06/28/24 07/31/24 09:31 Patient Tobacco Use Status Former Tobacco user 07/31/24 09:31 Tobacco use type Cigarette 07/31/24 09:31 e-Cigarette/Vaping Use Never Used 07/31/24 09:31 Thrive Assessment: Date of Thrive Assessment Date Thrive assessed 09/29/23 07/31/24 09:31 Const General: cooperative, comfortable, no acute distress and alert Neck Neck: Yes no lymphadenopathy Thyroid: Thyroid normal Resp Effort & Inspection: normal respiratory effort Auscultation: clear to auscultation bilaterally Percussion: percussion normal Cardio Jugular venous distension: no JVD Palpation: normal PMI Rate: regular rate Rhythm: regular rhythm Heart sounds: S1 normal heart sound present and S2 normal heart sound present GI Inspection: Yes normal to inspection Palpation (GI): No hepatosplenomegaly present Skin General skin exam: no rashes or lesions noted Extrem General: Yes no clubbing, cyanosis or edema Coding Level of Care Code Est Pt Level 3 (93694) Diagnoses Failed back syndrome M96.1 Assessment & Plan Assessment & Plan (1) Failed back syndrome: Code(s): M96.1 - Postlaminectomy syndrome, not elsewhere classified Category: Medical Plan: stable; same rx Medications: Refilled hydrocodone-acetaminophen 7.5-325 mg 1 tab PO Q6H PRN 120 tabs 0RF pain M96.1 - Postlaminectomy syndrome, not elsewhere classified
== END 2024-07-31 09:42 | disposition home or self-care (01) ==
LOC: HO.HMCH 09:22
PROVIDERS: PCP Internal Medicine; Visit Provider Internal Medicine
DX: M96.1 Postlaminectomy syndrome, not elsewhere classified (principal)

== ENCOUNTER → 2024-07-31 09:22 | Outpatient (BNVA) | payer MEDICARE, OTHER, SELFPAY | PROVIDERS: PCP Internal Medicine; Visit Provider Internal Medicine | DX: M96.1 Postlaminectomy syndrome, not elsewhere classified (principal) | CPT/HCPCS: 99212 ==

== ENCOUNTER 2024-08-31 13:20 | Outpatient (AMB) | payer MEDICARE, OTHER, SELFPAY ==
--- NOTE | 2024-08-31 13:23 | MHC.PC.OV ---
Vital Signs 08/31/24 13:24 Height 5 ft 10 in Weight 176 lb 8 oz BMI 25.3 BP 122/70 Blood Pressure Location Lt brachial Position Sitting Pulse 60 Pulse Source Pulse Oximeter Pulse Oximetry (%) 96 Oxygen Delivery Method Room Air Intake Visit Reasons: Med Management Intake Note: Patient is here to follow up on med management. 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: Not Required per policy Accompanied by: Self / Same As Patient Allergies adalimumab [From HUMIRA] Allergy (Unknown, Verified 08/31/24 13:24) RASH Cidnwpt-RAT-UuQ Reductase Inhibitor [NGMSEOV-TUM-CEB REDUCTASE INHIBITOR] Allergy (Unknown, Verified 08/31/24 13:24) SWELLING Tobacco use date assessed: 08/31/24 Fall risk assessment: No Falls in past year Last assessed Fall Risk: 08/31/24 Dental Screening Dental Screen Date: 11/29/23 HPI Med Management HPI Details f/u chronic back nathan withfailed back syndrome; stable and compliant on rx PFSH Medical History Polyuria Hyperlipidemia Psoriatic arthritis Benign essential HTN Primary osteoarthritis of right knee Erectile dysfunction Enlarged prostate without lower urinary tract symptoms (luts) Surgical History History of surgery History of laparoscopic cholecystectomy History of tonsillectomy History of arthroscopy of right knee History of appendectomy Family History Father Degenerative joint disease Mother Psoriasis Rheumatoid arthritis Social History Housing: House Housing Other:: refused to answer Alcohol intake: never Patient Tobacco Use Status: Former Tobacco user Tobacco use type: Cigarette e-Cigarette/Vaping Use: Never Used Second Hand Smoke Exposure: No service: No Current occupational status: other Current occupational exposures/hazards: No Cognitive needs: No Hearing needs: No Vision needs: No Questionnaire Thrive Questionnaire Date Thrive assessed: 09/29/23 NELSON-7 AMB Questionnaire NELSON-7 Date NELSON - 7 assessed: 09/29/23 Source: Developed by Drs. Hunter Ahuja, Nusrat Kraus, Ifeanyi Lyn and colleagues, with an educational merry from [employer]. Review of Systems Const Denies chills, Denies headache(s) and Denies weight loss ENT Denies headache(s) Card Denies chest pain, Denies syncope, Denies irregular heart rhythm and Denies dyspnea Resp Denies chest congestion, Denies cough and Denies dyspnea GI Denies abdominal pain, Denies change in stool character, Denies nausea and Denies vomiting Musc Denies deformity and Denies joint swelling Neuro Denies syncope and Denies headache(s) Physical exam (Primary Care) Vital Signs: Last Vital Signs Pulse 60 08/31/24 13:24 BP 122/70 08/31/24 13:24 Pulse Ox 96 08/31/24 13:24 Oxygen Delivery Method Room Air 08/31/24 13:24 BMI result Body Mass Index 25.3 Tobacco/Smoking Status: Tobacco use Status Tobacco use date assessed 08/31/24 08/31/24 13:28 Patient Tobacco Use Status Former Tobacco user 08/31/24 13:28 Tobacco use type Cigarette 08/31/24 13:28 e-Cigarette/Vaping Use Never Used 08/31/24 13:28 Thrive Assessment: Date of Thrive Assessment Date Thrive assessed 09/29/23 08/31/24 13:28 Const General: cooperative, comfortable, no acute distress and alert Neck Neck: Yes no lymphadenopathy Thyroid: Thyroid normal Resp Effort & Inspection: normal respiratory effort Auscultation: clear to auscultation bilaterally Percussion: percussion normal Cardio Jugular venous distension: no JVD Palpation: normal PMI Rate: regular rate Rhythm: regular rhythm Heart sounds: S1 normal heart sound present and S2 normal heart sound present GI Inspection: Yes normal to inspection Palpation (GI): No hepatosplenomegaly present Skin General skin exam: no rashes or lesions noted Extrem General: Yes no clubbing, cyanosis or edema Coding Level of Care Code Est Pt Level 3 (34850) Diagnoses Failed back syndrome M96.1 Assessment & Plan Assessment & Plan (1) Failed back syndrome: Code(s): M96.1 - Postlaminectomy syndrome, not elsewhere classified Category: Medical Plan: stable; same rx Medications: Refilled hydrocodone-acetaminophen 7.5-325 mg 1 tab PO Q6H PRN 120 tabs 0RF pain M96.1 - Postlaminectomy syndrome, not elsewhere classified
[2024-08-31 13:24] VITALS: BP 122/70; PULSE 60; O2SAT 96; BMI 25.3
== END 2024-08-31 13:36 | disposition home or self-care (01) ==
PROVIDERS: PCP Internal Medicine; Visit Provider Internal Medicine
DX: M96.1 Postlaminectomy syndrome, not elsewhere classified (principal)

== ENCOUNTER → 2024-08-31 13:20 | Outpatient (BNVA) | payer MEDICARE, OTHER, SELFPAY | PROVIDERS: PCP Internal Medicine; Visit Provider Internal Medicine | DX: M96.1 Postlaminectomy syndrome, not elsewhere classified (principal); Z79.899 Other long term (current) drug therapy | CPT/HCPCS: 99212 ==

== ENCOUNTER 2024-10-01 09:56 | Outpatient (AMB) | payer MEDICARE, OTHER, SELFPAY ==
--- NOTE | 2024-10-01 10:12 | A.OFFPC_ITS ---
Vital Signs 10/01/24 10:14 Height 5 ft 10 in Weight 175 lb 6 oz BMI 25.2 BP 132/80 Blood Pressure Location Lt brachial Position Sitting Pulse 86 Pulse Source Pulse Oximeter Pulse Oximetry (%) 96 Oxygen Delivery Method Room Air Intake Visit Reasons: med management Intake Note: Patient is here to follow up on med management. 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 Nurse Clinical Coordinator: Not Required per policy Accompanied by: Self / Same As Patient Allergies adalimumab [From [facility]] Allergy (Unknown, Verified 10/01/24 10:14) RASH Ayvenzl-OQT-UbT Reductase Inhibitor [GFEZZIF-HTW-VSY REDUCTASE INHIBITOR] Allergy (Unknown, Verified 10/01/24 10:14) SWELLING Medication List - Last Reconciled 10/01/24 by Chad Burk MD amlodipine 10 mg PO DAILY clobetasol 0.05% 1 appl topical BID diazepam 5 mg PO etanercept mg subcut QWEEK gabapentin 100 mg PO TID gemfibrozil 600 mg PO BID hydrocodone-acetaminophen 7.5-325 mg 1 tab PO Q6H PRN indomethacin 50 mg (2 x 25 mg) PO BID lisinopril 40 mg PO DAILY lorazepam (Ativan) 1 mg PO ONCE omeprazole 40 mg PO DAILY orphenadrine citrate ER 100 mg PO BID secukinumab mg subcut Q4W sildenafil 100 mg PO DAILY PRN tamsulosin 0.4 mg PO DAILY triamcinolone acetonide 0.5% 1 appl topical BID zolpidem 10 mg PO BEDTIME PRN Tobacco use date assessed: 10/01/24 Fall risk assessment: No Falls in past year Last assessed Fall Risk: 10/01/24 Dental Screening Dental Screen Date: 10/01/24 Did you have a dental visit in the last 12 months?: Yes Did you have a dental problem in the last 6 months where you did not have access to dental care?: No Was dental information given to patient?: Patient has dentist HPI med management HPI Details failed back syndrome on rx; doing well; [facility] Medical History Polyuria Hyperlipidemia Psoriatic arthritis Benign essential HTN Primary osteoarthritis of right knee Erectile dysfunction Enlarged prostate without lower urinary tract symptoms (luts) Surgical History History of surgery History of laparoscopic cholecystectomy History of tonsillectomy History of arthroscopy of right knee History of appendectomy Family History Father Degenerative joint disease Mother Psoriasis Rheumatoid arthritis Social History Housing: House Housing Other:: refused to answer Alcohol intake: never Patient Tobacco Use Status: Former Tobacco user Tobacco use type: Cigarette e-Cigarette/Vaping Use: Never Used Second Hand Smoke Exposure: No service: No Current occupational status: other Current occupational exposures/hazards: No Cognitive needs: No Hearing needs: No Vision needs: No Questionnaire PHQ-9 Over the last 2 weeks, how often have you been bothered by any of the following problems? 1. Little interest or pleasure in doing things: not at all 2. Feeling down, depressed, or hopeless: not at all 3. Trouble falling or staying asleep, or sleeping too much: not at all 4. Feeling tired or having little energy: not at all 5. Poor appetite or overeating: not at all 6. Feeling bad about yourself - or that you are a failure or have let yourself or your family down: not at all 7. Trouble concentrating on things, such as reading the newspaper or watching television: not at all 8. Moving or speaking so slowly that other people could have noticed. Or the opposite - being so fidgety or restless that you have been moving around a lot more than usual: not at all 9. Thoughts that you would be better off or of hurting yourself in some way: not at all Total score: 0 Depression Screening Interpretation: Negative Depression Screening Done: Yes Source: Developed by Drs. Hunter Ahuja, Nusrat Kraus, Ifeanyi Lyn and colleagues, with an educational mrery from [employer]. Thrive Questionnaire Date Thrive assessed: 10/01/24 I am a: Patient What is your living situation today?: I have a steady place to live Within the past 12 months, did the food you bought not last and you didn't have the money to get more?: Never true Within the past 12 months, did you worry whether your food would run out before you got money to buy more?: Never true Do you have trouble paying for medicines?: No Do you have trouble getting transportation to medical appointments?: No Do you have trouble paying your heating and electricity bill?: No Do you have trouble taking care of your child, family member or friend?: No Do you have trouble with day-to-day activities such as bathing, preparing meals, shopping, managing finances, etc.?: No Are you currently unemployed and looking for a job?: No Are you interested in more education?: No Currently or been in a relationship where the following occur: No concerns reported THRIVE Score: 0 AUDIT C Alcohol Use Questionnaire (AUDIT-C) 1. How often do you have a drink containing alcohol?: Never Total Score: 0 NELSON-7 AMB Questionnaire NELSON-7 Date NELSON - 7 assessed: 10/01/24 Feeling nervous, anxious, or on edge: 0 = Not at all Not being able to stop or control worryin = Not at all Worrying too much about different things: 0 = Not at all Trouble relaxin = Not at all Being so restless that it is hard to sit still: 0 = Not at all Becoming easily annoyed or irritable: 0 = Not at all Feeling afraid as if something awful might happen: 0 = Not at all Total NELSON-7 score (0-4 normal; 5-9 mild; 10-14 moderate; 15-21 severe): 0 Source: Developed by Drs. Hunter Ahuja, Nusrat Kraus, Ifeanyi Lyn and colleagues, with an educational merry from [employer]. Review of Systems Const Denies chills, Denies headache(s) and Denies weight loss ENT Denies headache(s) Card Denies chest pain, Denies syncope, Denies irregular heart rhythm and Denies dyspnea Resp Denies chest congestion, Denies cough and Denies dyspnea GI Denies abdominal pain, Denies change in stool character, Denies nausea and Denies vomiting Musc Denies deformity and Denies joint swelling Neuro Denies syncope and Denies headache(s) Physical exam (Primary Care) Vital Signs: Last Vital Signs Pulse 86 10/01/24 10:14 BP 132/80 10/01/24 10:14 Pulse Ox 96 10/01/24 10:14 Oxygen Delivery Method Room Air 10/01/24 10:14 BMI result Body Mass Index 25.2 Tobacco/Smoking Status: Tobacco use Status Tobacco use date assessed 10/01/24 10/01/24 10:20 Patient Tobacco Use Status Former Tobacco user 10/01/24 10:20 Tobacco use type Cigarette 10/01/24 10:20 e-Cigarette/Vaping Use Never Used 10/01/24 10:20 PHQ-9: PHQ-9 Score PHQ-9: Total score 0 10/01/24 10:20 Depression Screening Interpretation: Negative Thrive Assessment: Date of Thrive Assessment Date Thrive assessed 10/01/24 10/01/24 10:20 Currently or been in a relationship where the following occur: No concerns reported Const General: cooperative, comfortable, no acute distress and alert Neck Neck: Yes no lymphadenopathy Thyroid: Thyroid normal Resp Effort & Inspection: normal respiratory effort Auscultation: clear to auscultation bilaterally Percussion: percussion normal Cardio Jugular venous distension: no JVD Palpation: normal PMI Rate: regular rate Rhythm: regular rhythm Heart sounds: S1 normal heart sound present and S2 normal heart sound present GI Inspection: Yes normal to inspection Palpation (GI): No hepatosplenomegaly present Skin General skin exam: no rashes or lesions noted Extrem General: Yes no clubbing, cyanosis or edema Coding Level of Care Code Est Pt Level 3 (81312) Diagnoses Failed back syndrome M96.1 Assessment & Plan Assessment & Plan (1) Failed back syndrome: Code(s): M96.1 - Postlaminectomy syndrome, not elsewhere classified Category: Medical Plan: stable; same rx Medications: Refilled hydrocodone-acetaminophen 7.5-325 mg 1 tab PO Q6H PRN 120 tabs 0RF pain M96.1 - Postlaminectomy syndrome, not elsewhere classified
[2024-10-01 10:14] VITALS: BP 132/80; PULSE 86; O2SAT 96; BMI 25.2
== END 2024-10-01 10:39 | disposition home or self-care (01) ==
LOC: HO.HMCH 09:56
PROVIDERS: PCP Internal Medicine; Visit Provider Internal Medicine
DX: M96.1 Postlaminectomy syndrome, not elsewhere classified (principal)

== ENCOUNTER → 2024-10-01 09:56 | Outpatient (BNVA) | payer MEDICARE, OTHER, SELFPAY | PROVIDERS: PCP Internal Medicine; Visit Provider Internal Medicine | DX: M96.1 Postlaminectomy syndrome, not elsewhere classified (principal) | CPT/HCPCS: 96127; 99212 ==

== ENCOUNTER → 2024-11-01 09:23 | Outpatient (BNVA) | payer MEDICARE, OTHER, SELFPAY | PROVIDERS: PCP Internal Medicine; Visit Provider Internal Medicine | DX: M96.1 Postlaminectomy syndrome, not elsewhere classified (principal) | CPT/HCPCS: 99212 ==

== ENCOUNTER 2024-11-28 08:43 | Outpatient (AMB) | payer MEDICARE, OTHER, SELFPAY ==
--- NOTE | 2024-11-28 08:47 | A.OFFPC_ITS ---
Vital Signs 11/28/24 08:49 Height 5 ft 10 in Weight 175 lb BMI 25.1 BP 120/74 Blood Pressure Location Lt brachial Position Sitting Pulse 73 Pulse Source Pulse Oximeter Temp 97.3 F Temp Source Temporal Artery Scan Pulse Oximetry (%) 97 Oxygen Delivery Method Room Air Intake Visit Reasons: Med Management Intake Note: Patient is here to follow up on med management. 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: Not Required per policy Accompanied by: Self / Same As Patient Allergies adalimumab [From [facility]] Allergy (Unknown, Verified 11/28/24 08:49) RASH Pmddrzj-MKS-AvG Reductase Inhibitor [QAEWTSZ-XSI-SNT REDUCTASE INHIBITOR] Allergy (Unknown, Verified 11/28/24 08:49) SWELLING Medication List - Last Reconciled 11/28/24 by Chad Burk MD amlodipine 10 mg PO DAILY clobetasol 0.05% 1 appl topical BID diazepam 5 mg PO etanercept mg subcut QWEEK gabapentin 100 mg PO TID gemfibrozil 600 mg PO BID hydrocodone-acetaminophen 7.5-325 mg 1 tab PO Q6H PRN indomethacin 50 mg (2 x 25 mg) PO BID lisinopril 40 mg PO DAILY lorazepam (Ativan) 1 mg PO ONCE omeprazole 40 mg PO DAILY orphenadrine citrate ER 100 mg PO BID secukinumab mg subcut Q4W sildenafil 100 mg PO DAILY PRN tamsulosin 0.4 mg PO DAILY triamcinolone acetonide 0.5% 1 appl topical BID zolpidem 10 mg PO BEDTIME PRN Tobacco use date assessed: 11/28/24 Fall risk assessment: No Falls in past year Last assessed Fall Risk: 11/28/24 Dental Screening Dental Screen Date: 10/01/24 HPI Med Management HPI Details failed back syndrome on rx; compliant [facility] Medical History Polyuria Hyperlipidemia Psoriatic arthritis Benign essential HTN Primary osteoarthritis of right knee Erectile dysfunction Enlarged prostate without lower urinary tract symptoms (luts) Surgical History History of surgery History of laparoscopic cholecystectomy History of tonsillectomy History of arthroscopy of right knee History of appendectomy Family History Father Degenerative joint disease Mother Psoriasis Rheumatoid arthritis Social History Housing: House Housing Other:: refused to answer Alcohol intake: never Patient Tobacco Use Status: Former Tobacco user Tobacco use type: Cigarette e-Cigarette/Vaping Use: Never Used Second Hand Smoke Exposure: Yes service: No Current occupational status: other Current occupational exposures/hazards: No Cognitive needs: No Hearing needs: No Vision needs: No Questionnaire Thrive Questionnaire Date Thrive assessed: 10/01/24 NELSON-7 AMB Questionnaire NELSON-7 Date NELSON - 7 assessed: 10/01/24 Source: Developed by Drs. Hunter Ahuja, Nusrat Kraus, Ifeanyi Lyn and colleagues, with an educational merry from [employer]. Review of Systems Const Denies chills, Denies headache(s) and Denies weight loss ENT Denies headache(s) Card Denies chest pain, Denies syncope, Denies irregular heart rhythm and Denies dyspnea Resp Denies chest congestion, Denies cough and Denies dyspnea GI Denies abdominal pain, Denies change in stool character, Denies nausea and Denies vomiting Musc Denies deformity and Denies joint swelling Neuro Denies syncope and Denies headache(s) Physical exam (Primary Care) Vital Signs: Last Vital Signs Temp 97.3 F 11/28/24 08:49 Pulse 73 11/28/24 08:49 BP 120/74 11/28/24 08:49 Pulse Ox 97 11/28/24 08:49 Oxygen Delivery Method Room Air 11/28/24 08:49 BMI result Body Mass Index 25.1 Tobacco/Smoking Status: Tobacco use Status Tobacco use date assessed 11/28/24 11/28/24 08:54 Patient Tobacco Use Status Former Tobacco user 11/28/24 08:54 Tobacco use type Cigarette 11/28/24 08:54 e-Cigarette/Vaping Use Never Used 11/28/24 08:54 Thrive Assessment: Date of Thrive Assessment Date Thrive assessed 10/01/24 11/28/24 08:54 Const General: cooperative, comfortable, no acute distress and alert Neck Neck: Yes no lymphadenopathy Thyroid: Thyroid normal Resp Effort & Inspection: normal respiratory effort Auscultation: clear to auscultation bilaterally Percussion: percussion normal Cardio Jugular venous distension: no JVD Palpation: normal PMI Rate: regular rate Rhythm: regular rhythm Heart sounds: S1 normal heart sound present and S2 normal heart sound present GI Inspection: Yes normal to inspection Palpation (GI): No hepatosplenomegaly present Skin General skin exam: no rashes or lesions noted Extrem General: Yes no clubbing, cyanosis or edema Coding Level of Care Code Est Pt Level 3 (89681) Diagnoses Failed back syndrome M96.1 Assessment & Plan Assessment & Plan (1) Failed back syndrome: Code(s): M96.1 - Postlaminectomy syndrome, not elsewhere classified Category: Medical Plan: stable; same rx Medications: Refilled amlodipine 10 mg PO DAILY 90 tabs 8RF triamcinolone acetonide 0.5% 1 appl topical BID 30 grams 8RF gemfibrozil 600 mg PO BID 180 tabs 1RF zolpidem 10 mg PO BEDTIME PRN 30 tabs 3RF insomnia hydrocodone-acetaminophen 7.5-325 mg 1 tab PO Q6H PRN 120 tabs 0RF pain M96.1 - Postlaminectomy syndrome, not elsewhere classified
[2024-11-28 08:49] VITALS: BP 120/74; PULSE 73; TEMP 36.3; O2SAT 97; BMI 25.1
== END 2024-11-28 09:07 | disposition home or self-care (01) ==
PROVIDERS: PCP Internal Medicine; Visit Provider Internal Medicine
DX: M96.1 Postlaminectomy syndrome, not elsewhere classified (principal)

== ENCOUNTER → 2024-11-28 08:43 | Outpatient (BNVA) | payer MEDICARE, OTHER, SELFPAY | PROVIDERS: PCP Internal Medicine; Visit Provider Internal Medicine | DX: M96.1 Postlaminectomy syndrome, not elsewhere classified (principal) | CPT/HCPCS: 99212 ==

== ENCOUNTER 2024-12-28 10:18 | Outpatient (AMB) | payer MEDICARE, OTHER, SELFPAY ==
[2024-12-28 10:31] VITALS: BP 136/88; PULSE 68; O2SAT 96; BMI 25.4
--- NOTE | 2024-12-28 10:31 | A.OFFPC_ITS ---
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 Accompanied by: Self / Same As Patient Allergies adalimumab [From [facility]UMIRA] Allergy (Unknown, Verified 12/28/24 10:46) RASH Axnhzvl-HWJ-MvL Reductase Inhibitor [WAIUQAQ-UZC-WKY REDUCTASE INHIBITOR] Allergy (Unknown, Verified 12/28/24 10:46) SWELLING Medication List - Last Reconciled 12/28/24 by Mulugeta Pelletier MD amlodipine 10 mg PO DAILY clobetasol 0.05% 1 appl topical BID gabapentin 100 mg PO TID gemfibrozil 600 mg PO BID hydrocodone-acetaminophen 7.5-325 mg 1 tab PO Q6H PRN lisinopril 40 mg PO DAILY omeprazole 40 mg PO DAILY orphenadrine citrate ER 100 mg PO BID secukinumab 300 mg subcut Q4W sildenafil 100 mg PO DAILY PRN tamsulosin 0.4 mg PO DAILY triamcinolone acetonide 0.5% 1 appl topical BID zolpidem 10 mg PO BEDTIME PRN Tobacco use date assessed: 12/28/24 Fall risk assessment: No Falls in past year Last assessed Fall Risk: 12/28/24 Dental Screening Dental Screen Date: 12/28/24 Did you have a dental visit in the last 12 months?: No Did you have a dental problem in the last 6 months where you did not have access to dental care?: No Was dental information given to patient?: No HPI Med Management HPI Details Patient comes in today for his follow up visit for his chronic joint pains and low back pain - is transferring over from Dr. Burk, who retired from the practice a couple of weeks ago Patient states that he feels okay He denies any headaches or dizziness Denies any chest pains, no SOB No nausea/vomiting, no abdominal pain No change in bowel habits noted States that his chronic low back pain and joint pains remain adequately controlled on his current Rx He will need his pain med Rx refilled - he will be due for refill in a day or two He has no follow up labs done recently - has not had any follow up labs done in about a year now [facility] Medical History (Updated 12/28/24 @ 11:36 by Mulugeta Pelletier MD) Insomnia GERD without esophagitis Essential hypertension Mixed hyperlipidemia Polyuria Hyperlipidemia Psoriatic arthritis Benign essential HTN Primary osteoarthritis of right knee Erectile dysfunction Enlarged prostate without lower urinary tract symptoms (luts) Surgical History (Updated 12/28/24 @ 11:08 by Mulugeta Pelletier MD) History of surgery History of laparoscopic cholecystectomy History of tonsillectomy History of arthroscopy of right knee History of appendectomy Family History Father Degenerative joint disease Mother Psoriasis Rheumatoid arthritis Social History Housing: House Housing Other:: refused to answer Alcohol intake: never Patient Tobacco Use Status: Former Tobacco user Tobacco use type: Cigarette e-Cigarette/Vaping Use: Never Used Second Hand Smoke Exposure: Yes service: No Current occupational status: other Current occupational exposures/hazards: No Cognitive needs: No Hearing needs: No Vision needs: No Questionnaire PHQ-9 Over the last 2 weeks, how often have you been bothered by any of the following problems? 1. Little interest or pleasure in doing things: not at all 2. Feeling down, depressed, or hopeless: not at all 3. Trouble falling or staying asleep, or sleeping too much: not at all 4. Feeling tired or having little energy: not at all 5. Poor appetite or overeating: not at all 6. Feeling bad about yourself - or that you are a failure or have let yourself or your family down: not at all 7. Trouble concentrating on things, such as reading the newspaper or watching television: not at all 8. Moving or speaking so slowly that other people could have noticed. Or the opposite - being so fidgety or restless that you have been moving around a lot more than usual: not at all 9. Thoughts that you would be better off or of hurting yourself in some way: not at all Total score: 0 Depression Screening Interpretation: Negative Depression Screening Done: Yes 98686 - PHQ-9 Billing: Yes Source: Developed by Drs. Hunter Ahuja, Nusrat B.W. Ifeanyi Kraus and colleagues, with an educational merry from 1calendar. Thrive Questionnaire Date Thrive assessed: 12/28/24 I am a: Patient What is your living situation today?: I have a steady place to live Within the past 12 months, did the food you bought not last and you didn't have the money to get more?: Never true Within the past 12 months, did you worry whether your food would run out before you got money to buy more?: Never true Do you have trouble paying for medicines?: No Do you have trouble getting transportation to medical appointments?: No Do you have trouble paying your heating and electricity bill?: No Do you have trouble taking care of your child, family member or friend?: No Do you have trouble with day-to-day activities such as bathing, preparing meals, shopping, managing finances, etc.?: No Are you currently unemployed and looking for a job?: No Are you interested in more education?: No Please select the resources that you would like help with: None Currently or been in a relationship where the following occur: No concerns reported THRIVE Score: 0 AUDIT C Alcohol Use Questionnaire (AUDIT-C) 1. How often do you have a drink containing alcohol?: Never 3. How often do you have six or more drinks on one occasion?: Never Total Score: 0 Score Reviewed/Action Taken: Yes NELSON-7 AMB Questionnaire NELSON-7 Date NELSON - 7 assessed: 12/28/24 Feeling nervous, anxious, or on edge: 0 = Not at all Not being able to stop or control worryin = Not at all Worrying too much about different things: 0 = Not at all Trouble relaxin = Not at all Being so restless that it is hard to sit still: 0 = Not at all Becoming easily annoyed or irritable: 0 = Not at all Feeling afraid as if something awful might happen: 0 = Not at all Total NELSON-7 score (0-4 normal; 5-9 mild; 10-14 moderate; 15-21 severe): 0 Source: Developed by Drs. Hunter Ahuja, Ifeanyi Benson and colleagues, with an educational merry from 1calendar. Review of Systems Const Denies chills, Reports fatigue, Denies fever(s) and Denies headache(s) ENT Denies dysphagia, Denies dizziness, Denies otalgia, Denies headache(s), Denies neck pain, Denies odynophagia and Denies sore throat Card Denies chest pain, Denies palpitations and Denies dyspnea Resp Denies chest congestion, Denies cough and Denies dyspnea GI Denies abdominal pain, Denies constipation, Denies dysphagia, Denies heartburn, Denies diarrhea, Denies nausea, Denies odynophagia and Denies vomiting Denies difficulty urinating, Denies dysuria, Denies nocturia and Denies urinary frequency Musc Reports back pain (over the lower back - chronic), Reports arthralgias (involving multiple joints) and Denies neck pain Skin/Breast Denies rash Neuro Denies dizziness and Denies headache(s) Endo Reports fatigue and Denies palpitations Physical exam (Primary Care) Vital Signs: Last Vital Signs Pulse 68 12/28/24 10:31 BP 136/88 12/28/24 10:31 Pulse Ox 96 12/28/24 10:31 Oxygen Delivery Method Room Air 12/28/24 10:31 BMI result Body Mass Index 25.4 Tobacco/Smoking Status: Tobacco use Status Tobacco use date assessed 12/28/24 12/28/24 10:37 Patient Tobacco Use Status Former Tobacco user 12/28/24 10:37 Tobacco use type Cigarette 12/28/24 10:37 e-Cigarette/Vaping Use Never Used 12/28/24 10:37 PHQ-9: PHQ-9 Score PHQ-9: Total score 0 12/28/24 10:37 Depression Screening Interpretation: Negative Thrive Assessment: Date of Thrive Assessment Date Thrive assessed 12/28/24 12/28/24 10:37 Currently or been in a relationship where the following occur: No concerns reported Const General: no acute distress and alert HENMT Ears: TM's normal bilaterally and EAC's normal Throat: Yes posterior oropharynx normal and Yes tonsils normal (no TP congestion) Neck Neck: Yes supple and No lymphadenopathy Thyroid: Thyroid normal Resp Auscultation: clear to auscultation bilaterally, no rales and no wheezes Cardio Rate: regular rate Rhythm: regular rhythm Heart sounds: no murmurs GI Palpation (GI): Soft to palpation and nontender Auscultation: normal bowel sounds General: Yes no CVA tenderness Back/Spine/Pelvis Back: no CVA tenderness Thoracic/Lumbar Spine: lumbar spinal tenderness Skin Rashes: no rashes Extrem General: Yes no clubbing, cyanosis or edema Coding Level of Care Code Est Pt Level 4 (47027) Complex EM visit Add On G2211 Diagnoses Psoriatic arthritis L40.50 Failed back syndrome M96.1 Mixed hyperlipidemia E78.2 Essential hypertension I10 GERD without esophagitis K21.9 BPH w urinary obs/LUTS N40.1; N13.8 Erectile dysfunction, unspecified erectile dysfunction type N52.9 Erectile dysfunction type: unspecified Insomnia, unspecified type G47.00 Insomnia type: unspecified Additional Codes PHQ-9 - 47669 - PHQ-9 Billing: Yes ([id number]) Assessment & Plan Assessment & Plan (1) Psoriatic arthritis: Code(s): L40.50 - Arthropathic psoriasis, unspecified Category: Medical Plan: Continue Cosentyx 300 mg SQ every 4 weeks Patient continues to follow up with Dr. Acosta at [facility] for continuing management of his psoriatic arthritis Continue Triamcinolone acetonide 0.5% BID PRN for rash (2) Failed back syndrome: Code(s): M96.1 - Postlaminectomy syndrome, not elsewhere classified Category: Medical Plan: Patient states that he's had 3 separate lower back surgeries with Dr. Kd Sloan in the past He has been maintained on pain medications for his lower back since 2008, which he states helped reasonably but states that by 4 pm everyday, he can hardly do anything strenuous anymore as his legs will feel increasing achy and weak He has been to pain management at [facility] in [place] and has had several back injections (both from Dr. Sloan and [facility]) in the past Recalls that he has also been tried on spinal stimulators and other pain management modalities, which either provided him with some pain relief but only temporarily or did not help at all He has considered seeing neurosurgery (Dr. Mclean) at [facility] for further management and has discussed this with Dr. Burk in the past States that Dr. Burk has sent him for some lumbar spine x-rays to update his condition but he has not gotten these done yet He is advised that I placed a new order for lumbar spine x-rays and he can get these done at any time Have advised him that realistically, as he already had 3 back surgeries done in the past, there may not be much neurosurgery can do for him at this time unless there is any active or acute nerve compression going on in his lower back Reinforced activity and weight lifting restrictions to minimize aggravating his low back pain Continue Vicodin 7.5-325 mg Q 6 hours PRN and Gabapentin 100 mg TID (3) Mixed hyperlipidemia: Code(s): E78.2 - Mixed hyperlipidemia Category: Medical Plan: Reinforced low cholesterol diet Continue Gemfibrozil 600 mg BID Will have patient recheck his labs and fasting lipids for follow up - he is advised that he can get these done anytime between now and his next follow up appointment next month (4) Essential hypertension: Code(s): I10 - Essential (primary) hypertension Category: Medical Plan: Reinforced low sodium diet - goal is systolic BP of 120 to 130 mm or less Continue Amlodipine 10 mg QD and Lisinopril 40 mg QD Patient is reminded to continue monitoring his blood pressure regularly (5) GERD without esophagitis: Code(s): K21.9 - Gastro-esophageal reflux disease without esophagitis Category: Medical Plan: Dietary restrictions reinforced Continue Omeprazole 40 mg QD (6) BPH w urinary obs/LUTS: Code(s): N40.1 - Benign prostatic hyperplasia with lower urinary tract symptoms; N13.8 - Other obstructive and reflux uropathy Category: Medical Plan: Continue Tamsulosin 0.4 mg Q HS Follow up with urology as scheduled (7) Erectile dysfunction: Code(s): N52.9 - Male erectile dysfunction, unspecified Category: Medical Qualifiers: Erectile dysfunction type: unspecified Qualified Code(s): N52.9 - Male erectile dysfunction, unspecified Plan: Continue Sildenafil 100 mg PRN as instructed (8) Insomnia: Code(s): G47.00 - Insomnia, unspecified Category: Medical Qualifiers: Insomnia type: unspecified Qualified Code(s): G47.00 - Insomnia, unspecified Plan: Sleep hygiene reinforced Continue Zolpidem 10 mg Q HS PRN Plan Follow up in 1 month Orders: Orders XR lumbar spine 2-3V Today M54.50 - Low back pain, unspecified Complete Blood Count Auto Diff Today D64.9 - Anemia, unspecified Comprehensive [place]. Panel Fast Today E78.00 - Pure hypercholesterolemia, unspecified TSH reflex Free T4 Today E78.00 - Pure hypercholesterolemia, unspecified UA CC w/rflx Micro + Cult Today R30.0 - Dysuria Vitamin D 25-OH Total Today E55.9 - Vitamin D deficiency, unspecified Vitamin B12 and Folate Today E53.8 - Deficiency of other specified B group vitamins JULIUS Reflex Titer and Pattern Today L40.50 - Arthropathic psoriasis, unspecified C Reactive Protein Today L40.50 - Arthropathic psoriasis, unspecified Erythrocyte Sedimentation Rate Today L40.50 - Arthropathic psoriasis, unspecified, M79.7 - Fibromyalgia Lipid Panel Today E78.00 - Pure hypercholesterolemia, unspecified Hemoglobin A1c Today R73.01 - Impaired fasting glucose Rheumatoid Factor Today L40.50 - Arthropathic psoriasis, unspecified Medications: Refilled hydrocodone-acetaminophen 7.5-325 mg 1 tab PO Q6H PRN 120 tabs 0RF pain M96.1 - Postlaminectomy syndrome, not elsewhere classified
== END 2024-12-28 11:20 | disposition home or self-care (01) ==
LOC: HO.HMCH 10:19
PROVIDERS: PCP Internal Medicine; Visit Provider Internal Medicine
DX: L40.50 Arthropathic psoriasis, unspecified (principal); M96.1 Postlaminectomy syndrome, not elsewhere classified; E78.2 Mixed hyperlipidemia; I10 Essential (primary) hypertension; K21.9 Gastro-esophageal reflux disease without esophagitis; N40.1 Benign prostatic hyperplasia with lower urinary tract symptoms; N13.8 Other obstructive and reflux uropathy; N52.9 Male erectile dysfunction, unspecified; G47.00 Insomnia, unspecified

== ENCOUNTER → 2024-12-28 10:18 | Outpatient (BNVA) | payer MEDICARE, OTHER, SELFPAY | PROVIDERS: PCP Internal Medicine; Visit Provider Internal Medicine | DX: M54.50 Low back pain, unspecified (principal); L40.50 Arthropathic psoriasis, unspecified; M96.1 Postlaminectomy syndrome, not elsewhere classified; E78.2 Mixed hyperlipidemia; I10 Essential (primary) hypertension; K21.9 Gastro-esophageal reflux disease without esophagitis; N40.1 Benign prostatic hyperplasia with lower urinary tract symptoms; N13.8 Other obstructive and reflux uropathy; N52.9 Male erectile dysfunction, unspecified; G47.00 Insomnia, unspecified; D64.9 Anemia, unspecified; E78.00 Pure hypercholesterolemia, unspecified; R30.0 Dysuria; E55.9 Vitamin D deficiency, unspecified; E53.8 Deficiency of other specified B group vitamins | CPT/HCPCS: 96127; 99212 ==

== ENCOUNTER 2025-01-23 09:36 | Outpatient (REF) | payer MEDICARE, OTHER, SELFPAY ==
[2025-01-23 11:06] LABS: Basophils Percent Auto 0.5 % (0-2); Eosinophils Absolute Auto 0.1 X10*3/uL (0.0-0.4); Eosinophils Percent Auto 3.7 % (0-4); Hematocrit 36.4 % (42.0-52.0); Imm Gran Abs Auto 0.01 X10*3/uL (0.00-0.03); Imm Gran Pct Auto 0.5 % (0.0-0.4); Lymphocytes Absolute Auto 0.7 X10*3/uL (1.2-4.9); Lymphocytes Percent Auto 32.1 % (20-40); Mean Corpuscular Hemoglobin 27.2 pg (27.0-33.0); Mean Corpuscular Volume 82.5 fL (80.0-98.0); Mean Platelet Volume 9.4 fL (9.4-12.4); Monocytes Absolute Auto 0.2 X10*3/uL (0.1-1.2); Monocytes Percent Auto 9.6 % (2-11); Neutrophils Absolute Auto 1.2 x10*3/uL (2.0-8.3); Neutrophils Percent Auto 53.6 % (45-73); Platelet Count 215 X10*3/uL (160-400); Red Blood Count 4.41 X10*6/uL (4.60-5.80); Red Cell Distribution Width 13.9 % (11.0-16.0); SCAN SMEAR FLAG 1
[2025-01-23 11:08] LABS: White Blood Count 2.2 X10*3/uL (4.8-10.8)
[2025-01-23 11:16] LABS: Estimated Average Glucose 100 mg/dL; Hemoglobin A1C 100.4336 umol/L; Hemoglobin A1c % 5.1 % (<6.0)
[2025-01-23 11:31] LABS: Appearance Urine Clear; Color Urine Yellow; Glucose Urine UA Negative (Negative); Leukocyte Esterase Urine Negative (Negative); Nitrite Urine Negative (Negative); PH 5.5 (5.0-9.0); Urine Blood Negative (Negative); Urine Ketones Negative (Negative); Urine Protein Negative (Neg-Trace)
[2025-01-23 11:40] LABS: Rheumatoid Factor < 13.0 IU/mL (<15.0)
[2025-01-23 11:44] LABS: Erythrocyte Sedimentation Rate 9 MM/HR (0-15)
[2025-01-23 12:03] LABS: Alanine Aminotransferase 11 U/L (0-40); Albumin Level 4.6 g/dL (3.5-5.0); Alkaline Phosphatase 54 U/L (39-117); Anion Gap 15 (12-20); Aspartate Amino Transferase 18 U/L (5-37); Bilirubin Total 0.8 mg/dL (0.0-1.0); Blood Urea Nitrogen 15 mg/dL (9-16); C Reactive Protein < 0.10 mg/dL (< or = 0.50); Calcium 9.5 mg/dL (8.4-10.2); Carbon Dioxide 22 mmol/L (22-29); Chloride 106 mmol/L (96-108); Cholesterol 151 mg/dL (<200); Estimated Glomerular Filt Rate > 60; Glucose Fasting 98 mg/dL (60-99); HDL Cholesterol 73 mg/dL (>40); LDL Cholesterol Calculated 69 mg/dL (<100); Potassium 4.4 mmol/L (3.3-5.1); Sodium 139 mmol/L (135-145); TSH reflex Free T4 0.55 uIU/mL (0.32-4.0); Total Protein 7.3 g/dL (6.5-8.0); Triglycerides 47 mg/dL (<150); Vitamin D 25-OH Total 60.8 ng/mL (>30)
[2025-01-23 12:08] LABS: Folate 5.6 ng/mL (> or = 4.0); Vitamin B12 209 pg/mL (200-900)
[2025-01-25 10:18] LABS: Anti Nuclear Antibody Pattern Nuclear, Homogeneous; Anti Nuclear Antibody Screen POSITIVE (NEGATIVE)
== END 2025-01-23 09:37 | disposition home or self-care (01) ==
LOC: HO.LAB 09:36
PROVIDERS: PCP Internal Medicine; Visit Provider Internal Medicine
DX: D64.9 Anemia, unspecified (principal); E78.00 Pure hypercholesterolemia, unspecified; L40.50 Arthropathic psoriasis, unspecified; M79.7 Fibromyalgia; R73.01 Impaired fasting glucose; R30.0 Dysuria; E55.9 Vitamin D deficiency, unspecified; E53.8 Deficiency of other specified B group vitamins
CPT/HCPCS: 36415; 80053; 80061; 81003; 82306; 82607; 82746; 83036; 84443; 85025; 85652; 86038; 86039; 86140; 86431

== ENCOUNTER 2025-01-28 12:28 | Outpatient (AMB) | payer MEDICARE, OTHER, SELFPAY ==
[2025-01-28 12:41] VITALS: BP 136/80; PULSE 67; O2SAT 96; BMI 25.0
--- NOTE | 2025-01-28 12:41 | A.OFFPC_ITS ---
Vital Signs 01/28/25 12:41 Height 5 ft 10 in Weight 174 lb BMI 25.0 BP 136/80 Blood Pressure Location Lt brachial Position Sitting Pulse 67 Pulse Source Pulse Oximeter Pulse Oximetry (%) 96 Oxygen Delivery Method Room Air Intake Visit Reasons: Med Management Allergies adalimumab [From [facility]UMIRA] Allergy (Unknown, Verified 01/28/25 12:51) RASH Dfyqepe-YMQ-NiO Reductase Inhibitor [[id number] REDUCTASE INHIBITOR] Allergy (Unknown, Verified 01/28/25 12:51) SWELLING Medication List - Last Reconciled 01/28/25 by Mulugeta Pelletier MD amlodipine 10 mg PO DAILY clobetasol 0.05% 1 appl topical BID gabapentin 100 mg PO TID gemfibrozil 600 mg PO BID hydrocodone-acetaminophen 7.5-325 mg 1 tab PO Q6H PRN lisinopril 40 mg PO DAILY omeprazole 40 mg PO DAILY orphenadrine citrate ER 100 mg PO BID secukinumab 300 mg subcut Q4W sildenafil 100 mg PO DAILY PRN triamcinolone acetonide 0.5% 1 appl topical BID zolpidem 10 mg PO BEDTIME PRN Tobacco use date assessed: 12/28/24 Fall risk assessment: No Falls in past year Last assessed Fall Risk: 01/28/25 Dental Screening Dental Screen Date: 01/28/25 Did you have a dental visit in the last 12 months?: No Did you have a dental problem in the last 6 months where you did not have access to dental care?: No Was dental information given to patient?: No HPI Med Management HPI Details Patient comes in today for his follow up visit for his chronic joint pains and low back pain States that he feels okay He denies any headaches or dizziness Denies any chest pains, no SOB No nausea/vomiting, no abdominal pain No change in bowel habits noted States that his chronic low back pain and joint pains remain adequately controlled on his current Rx - will need his pain med Rx refilled today He had his follow up labs done last week - to discuss his results [facility] Medical History (Updated 01/28/25 @ 13:07 by Mulugeta Pelletier MD) Positive JULIUS (antinuclear antibody) Insomnia GERD without esophagitis Essential hypertension Mixed hyperlipidemia Polyuria Hyperlipidemia Psoriatic arthritis Benign essential HTN Primary osteoarthritis of right knee Erectile dysfunction Enlarged prostate without lower urinary tract symptoms (luts) Surgical History History of surgery History of laparoscopic cholecystectomy History of tonsillectomy History of arthroscopy of right knee History of appendectomy Family History Father Degenerative joint disease Mother Psoriasis Rheumatoid arthritis Social History Housing: House Housing Other:: refused to answer Alcohol intake: never Patient Tobacco Use Status: Former Tobacco user Tobacco use type: Cigarette e-Cigarette/Vaping Use: Never Used Second Hand Smoke Exposure: Yes service: No Current occupational status: other Current occupational exposures/hazards: No Cognitive needs: No Hearing needs: No Vision needs: No Questionnaire PHQ-9 Over the last 2 weeks, how often have you been bothered by any of the following problems? 1. Little interest or pleasure in doing things: not at all 2. Feeling down, depressed, or hopeless: not at all 3. Trouble falling or staying asleep, or sleeping too much: not at all 4. Feeling tired or having little energy: not at all 5. Poor appetite or overeating: not at all 6. Feeling bad about yourself - or that you are a failure or have let yourself or your family down: not at all 7. Trouble concentrating on things, such as reading the newspaper or watching television: not at all 8. Moving or speaking so slowly that other people could have noticed. Or the opposite - being so fidgety or restless that you have been moving around a lot more than usual: not at all 9. Thoughts that you would be better off or of hurting yourself in some way: not at all Total score: 0 Depression Screening Interpretation: Negative Depression Screening Done: Yes 20727 - PHQ-9 Billing: Yes Source: Developed by Drs. Hunter Ahuja, Nusrat Kraus, Ifeanyi Lyn and colleagues, with an educational merry from [employer]. Thrive Questionnaire Date Thrive assessed: 01/28/25 I am a: Patient What is your living situation today?: I have a steady place to live Within the past 12 months, did the food you bought not last and you didn't have the money to get more?: Never true Within the past 12 months, did you worry whether your food would run out before you got money to buy more?: Never true Do you have trouble paying for medicines?: No Do you have trouble getting transportation to medical appointments?: No Do you have trouble paying your heating and electricity bill?: I choose not to answer this question Do you have trouble taking care of your child, family member or friend?: I choose not to answer this question Do you have trouble with day-to-day activities such as bathing, preparing meals, shopping, managing finances, etc.?: I choose not to answer this question Are you currently unemployed and looking for a job?: I choose not to answer this question Are you interested in more education?: I choose not to answer this question Please select the resources that you would like help with: None Currently or been in a relationship where the following occur: I choose not to answer THRIVE Score: 0 AUDIT C Alcohol Use Questionnaire (AUDIT-C) 1. How often do you have a drink containing alcohol?: Never 3. How often do you have six or more drinks on one occasion?: Never Total Score: 0 Score Reviewed/Action Taken: Yes NELSON-7 AMB Questionnaire NELSON-7 Date NELSON - 7 assessed: 01/28/25 Feeling nervous, anxious, or on edge: 0 = Not at all Not being able to stop or control worryin = Not at all Worrying too much about different things: 0 = Not at all Trouble relaxin = Not at all Being so restless that it is hard to sit still: 0 = Not at all Becoming easily annoyed or irritable: 0 = Not at all Feeling afraid as if something awful might happen: 0 = Not at all Total NELSON-7 score (0-4 normal; 5-9 mild; 10-14 moderate; 15-21 severe): 0 Source: Developed by Drs. Hunter Ahuja, Nusrat Kraus, Ifeanyi Lyn and colleagues, with an educational merry from [employer]. Review of Systems Const Denies chills, Reports fatigue, Denies fever(s) and Denies headache(s) ENT Denies dysphagia, Denies dizziness, Denies otalgia, Denies headache(s), Denies neck pain, Denies odynophagia and Denies sore throat Card Denies chest pain, Denies palpitations and Denies dyspnea Resp Denies chest congestion, Denies cough and Denies dyspnea GI Denies abdominal pain, Denies constipation, Denies dysphagia, Denies heartburn, Denies diarrhea, Denies nausea, Denies odynophagia and Denies vomiting Denies difficulty urinating, Denies dysuria, Denies nocturia and Denies urinary frequency Musc Reports back pain (over the lower back - chronic), Reports arthralgias (involving multiple joints) and Denies neck pain Skin/Breast Denies rash Neuro Denies dizziness and Denies headache(s) Endo Reports fatigue and Denies palpitations Physical exam (Primary Care) Vital Signs: Last Vital Signs Pulse 67 01/28/25 12:41 BP 136/80 01/28/25 12:41 Pulse Ox 96 01/28/25 12:41 Oxygen Delivery Method Room Air 01/28/25 12:41 BMI result Body Mass Index 25.0 Tobacco/Smoking Status: Tobacco use Status Tobacco use date assessed 12/28/24 01/28/25 12:46 Patient Tobacco Use Status Former Tobacco user 01/28/25 12:46 Tobacco use type Cigarette 01/28/25 12:46 e-Cigarette/Vaping Use Never Used 01/28/25 12:46 PHQ-9: PHQ-9 Score PHQ-9: Total score 0 01/28/25 12:46 Depression Screening Interpretation: Negative Thrive Assessment: Date of Thrive Assessment Date Thrive assessed 01/28/25 01/28/25 12:46 Currently or been in a relationship where the following occur: I choose not to answer Const General: no acute distress and alert HENMT Ears: TM's normal bilaterally and EAC's normal Throat: Yes posterior oropharynx normal and Yes tonsils normal (no TP congestion) Neck Neck: Yes supple and No lymphadenopathy Thyroid: Thyroid normal Resp Auscultation: clear to auscultation bilaterally, no rales and no wheezes Cardio Rate: regular rate Rhythm: regular rhythm Heart sounds: no murmurs GI Palpation (GI): Soft to palpation and nontender Auscultation: normal bowel sounds General: Yes no CVA tenderness Back/Spine/Pelvis Back: no CVA tenderness Thoracic/Lumbar Spine: lumbar spinal tenderness Skin Rashes: no rashes Extrem General: Yes no clubbing, cyanosis or edema Results Reviewed Results Reviewed: Laboratory Tests 01/23/25 01/23/25 10:20 10:30 WBC 2.2 L Hgb 12.0 L Hct 36.4 L Plt Count 215 ESR 9 Sodium 139 Potassium 4.4 Creatinine 0.92 Estimated GFR > 60 Fasting Glucose 98 Hemoglobin A1c % 5.1 Calcium 9.5 AST 18 ALT 11 C-Reactive Protein < 0.10 Triglycerides 47 Cholesterol 151 LDL Cholesterol, Calc 69 HDL Cholesterol 73 Vitamin B12 209 25-OH Vitamin D Total 60.8 TSH 0.55 Ur Specific [place] 1.010 Urine Protein Negative Urine Glucose (UA) Negative Urine Blood Negative Urine Nitrite Negative Ur Leukocyte Esterase Negative JULIUS Screen POSITIVE A JULIUS Titer 1:160 H JULIUS Pattern Nuclear, Homogeneous A Coding Level of Care Code Est Pt Level 4 (76718) Complex EM visit Add On G2211 Diagnoses Psoriatic arthritis L40.50 Positive JULIUS (antinuclear antibody) R76.8 Failed back syndrome M96.1 Mixed hyperlipidemia E78.2 Essential hypertension I10 GERD without esophagitis K21.9 BPH w urinary obs/LUTS N40.1; N13.8 Erectile dysfunction, unspecified erectile dysfunction type N52.9 Erectile dysfunction type: unspecified Insomnia, unspecified type G47.00 Insomnia type: unspecified Additional Codes PHQ-9 - 00670 - PHQ-9 Billing: Yes ([id number]) Assessment & Plan Assessment & Plan (1) Psoriatic arthritis: Code(s): L40.50 - Arthropathic psoriasis, unspecified Category: Medical Plan: Continue Cosentyx 300 mg SQ every 4 weeks Patient continues to follow up with Dr. Acosta at [facility] for continuing management of his psoriatic arthritis Continue Triamcinolone acetonide 0.5% BID PRN for rash (2) Positive JULIUS (antinuclear antibody): Code(s): R76.8 - Other specified abnormal immunological findings in serum Category: Medical Plan: He is advised that most of his arthralgia work ups came back negative with the exception of his JULIUS, in a nuclear homogenous pattern Patient currently does not appear to have any other signs or symptoms of lupus and discussed that his JULIUS positivity is likely due to his psoriatic arthritis (3) Failed back syndrome: Code(s): M96.1 - Postlaminectomy syndrome, not elsewhere classified Category: Medical Plan: Patient states that he's had 3 separate lower back surgeries with Dr. Kd Sloan in the past He has been maintained on pain medications for his lower back since 2008, which he states helped reasonably but states that by 4 pm everyday, he can hardly do anything strenuous anymore as his legs will feel increasing achy and weak He has been to pain management at [facility] in [place] and has had several back injections (both from Dr. Sloan and [facility]) in the past Recalls that he has also been tried on spinal stimulators and other pain management modalities, which either provided him with some pain relief but only temporarily or did not help at all He has considered seeing neurosurgery (Dr. Mclean) at [facility] for further management and has discussed this with Dr. Burk in the past States that Dr. Burk has sent him for some lumbar spine x-rays to update his condition but he has not gotten these done yet He is advised that I placed a new order for lumbar spine x-rays and he can get these done at any time - he has not yet had these done at this time Have advised him that realistically, as he already had 3 back surgeries done in the past, there may not be much neurosurgery can do for him unless there is any active or acute nerve compression going on in his lower back Reinforced activity and weight lifting restrictions to minimize aggravating his low back pain Continue Vicodin 7.5-325 mg Q 6 hours PRN (Rx refilled today) and Gabapentin 100 mg TID We also had patient sign an updated pain management agreement today (4) Mixed hyperlipidemia: Code(s): E78.2 - Mixed hyperlipidemia Category: Medical Plan: Results of his labs done last week reviewed and discussed with patient Reinforced low cholesterol diet Continue Gemfibrozil 600 mg BID (5) Essential hypertension: Code(s): I10 - Essential (primary) hypertension Category: Medical Plan: Reinforced low sodium diet - goal is systolic BP of 120 to 130 mm or less Continue Amlodipine 10 mg QD and Lisinopril 40 mg QD Patient is reminded to continue monitoring his blood pressure regularly (6) GERD without esophagitis: Code(s): K21.9 - Gastro-esophageal reflux disease without esophagitis Category: Medical Plan: Dietary restrictions reinforced Continue Omeprazole 40 mg QD (7) BPH w urinary obs/LUTS: Code(s): N40.1 - Benign prostatic hyperplasia with lower urinary tract symptoms; N13.8 - Other obstructive and reflux uropathy Category: Medical Plan: Continue Tamsulosin 0.4 mg Q HS Follow up with urology as scheduled (8) Erectile dysfunction: Code(s): N52.9 - Male erectile dysfunction, unspecified Category: Medical Qualifiers: Erectile dysfunction type: unspecified Qualified Code(s): N52.9 - Male erectile dysfunction, unspecified Plan: Continue Sildenafil 100 mg PRN as instructed (9) Insomnia: Code(s): G47.00 - Insomnia, unspecified Category: Medical Qualifiers: Insomnia type: unspecified Qualified Code(s): G47.00 - Insomnia, unspecified Plan: Sleep hygiene reinforced Continue Zolpidem 10 mg Q HS PRN Plan Follow up in 1 month Medications: Refilled hydrocodone-acetaminophen 7.5-325 mg 1 tab PO Q6H PRN 120 tabs 0RF pain M96.1 - Postlaminectomy syndrome, not elsewhere classified
== END 2025-01-28 13:04 | disposition home or self-care (01) ==
LOC: HO.HMCH 12:28
PROVIDERS: PCP Internal Medicine; Visit Provider Internal Medicine
DX: L40.50 Arthropathic psoriasis, unspecified (principal); R76.8 Other specified abnormal immunological findings in serum; M96.1 Postlaminectomy syndrome, not elsewhere classified; E78.2 Mixed hyperlipidemia; I10 Essential (primary) hypertension; K21.9 Gastro-esophageal reflux disease without esophagitis; N40.1 Benign prostatic hyperplasia with lower urinary tract symptoms; N13.8 Other obstructive and reflux uropathy; N52.9 Male erectile dysfunction, unspecified; G47.00 Insomnia, unspecified

== ENCOUNTER → 2025-01-28 12:28 | Outpatient (BNVA) | payer MEDICARE, OTHER, SELFPAY | PROVIDERS: PCP Internal Medicine; Visit Provider Internal Medicine | DX: L40.50 Arthropathic psoriasis, unspecified (principal); R76.8 Other specified abnormal immunological findings in serum; M96.1 Postlaminectomy syndrome, not elsewhere classified; I10 Essential (primary) hypertension; K21.9 Gastro-esophageal reflux disease without esophagitis; N40.1 Benign prostatic hyperplasia with lower urinary tract symptoms; N13.8 Other obstructive and reflux uropathy; N52.9 Male erectile dysfunction, unspecified; G47.00 Insomnia, unspecified | CPT/HCPCS: 96127; 99212 ==

== ENCOUNTER 2025-02-25 15:54 | Outpatient (AMB) | payer MEDICARE, OTHER, SELFPAY ==
[2025-02-25 16:16] VITALS: BP 138/86; PULSE 78; O2SAT 96; BMI 25.0
--- NOTE | 2025-02-25 16:16 | A.OFFPC_ITS ---
Vital Signs 02/25/25 16:16 Height 5 ft 10 in Weight 174 lb 4 oz BMI 25.0 BP 138/86 Blood Pressure Location Lt brachial Position Sitting Pulse 78 Pulse Source Pulse Oximeter Pulse Oximetry (%) 96 Oxygen Delivery Method Room Air Intake Visit Reasons: Med Management Office Correspondent Required: No Accompanied by: Self / Same As Patient Allergies adalimumab [From [facility]UMIRA] Allergy (Unknown, Verified 02/25/25 16:29) RASH Iksjahz-ZKZ-LaH Reductase Inhibitor [[id number] REDUCTASE INHIBITOR] Allergy (Unknown, Verified 02/25/25 16:29) SWELLING Medication List - Last Reconciled 02/25/25 by Mulugeta Pelletier MD amlodipine 10 mg PO DAILY clobetasol 0.05% 1 appl topical BID gabapentin 100 mg PO TID gemfibrozil 600 mg PO BID hydrocodone-acetaminophen 7.5-325 mg 1 tab PO Q6H PRN lisinopril 40 mg PO DAILY omeprazole 40 mg PO DAILY orphenadrine citrate ER 100 mg PO BID secukinumab 300 mg subcut Q4W sildenafil 100 mg PO DAILY PRN triamcinolone acetonide 0.5% 1 appl topical BID zolpidem 10 mg PO BEDTIME PRN Tobacco use date assessed: 02/25/25 Fall risk assessment: No Falls in past year Last assessed Fall Risk: 02/25/25 Dental Screening Dental Screen Date: 02/25/25 Did you have a dental visit in the last 12 months?: No Did you have a dental problem in the last 6 months where you did not have access to dental care?: No Was dental information given to patient?: No HPI Med Management HPI Details Patient comes in today for his follow up visit States that he feels okay He denies any headaches or dizziness Denies any chest pains, no SOB No nausea/vomiting, no abdominal pain No change in bowel habits noted States that his chronic low back pain and joint pains remain adequately controlled on his current Rx - will need his pain med Rx refilled today [facility] Medical History Positive JULIUS (antinuclear antibody) Insomnia GERD without esophagitis Essential hypertension Mixed hyperlipidemia Polyuria Hyperlipidemia Psoriatic arthritis Benign essential HTN Primary osteoarthritis of right knee Erectile dysfunction Enlarged prostate without lower urinary tract symptoms (luts) Surgical History History of surgery History of laparoscopic cholecystectomy History of tonsillectomy History of arthroscopy of right knee History of appendectomy Family History Father Degenerative joint disease Mother Psoriasis Rheumatoid arthritis Social History Housing: House Housing Other:: refused to answer Alcohol intake: never Patient Tobacco Use Status: Former Tobacco user Tobacco use type: Cigarette e-Cigarette/Vaping Use: Never Used Second Hand Smoke Exposure: Yes service: No Current occupational status: other Current occupational exposures/hazards: No Cognitive needs: No Hearing needs: No Vision needs: No Questionnaire PHQ-9 Over the last 2 weeks, how often have you been bothered by any of the following problems? 1. Little interest or pleasure in doing things: not at all 2. Feeling down, depressed, or hopeless: not at all 3. Trouble falling or staying asleep, or sleeping too much: not at all 4. Feeling tired or having little energy: not at all 5. Poor appetite or overeating: not at all 6. Feeling bad about yourself - or that you are a failure or have let yourself or your family down: not at all 7. Trouble concentrating on things, such as reading the newspaper or watching television: not at all 8. Moving or speaking so slowly that other people could have noticed. Or the opposite - being so fidgety or restless that you have been moving around a lot more than usual: not at all 9. Thoughts that you would be better off or of hurting yourself in some way: not at all Total score: 0 Depression Screening Interpretation: Negative Depression Screening Done: Yes 06164 - PHQ-9 Billing: Yes Source: Developed by Drs. Hunter Ahuja, Nusrat Kraus, Ifeanyi Lyn and colleagues, with an educational merry from [employer] Thrive Questionnaire Date Thrive assessed: 02/25/25 I am a: Patient What is your living situation today?: I have a steady place to live Within the past 12 months, did the food you bought not last and you didn't have the money to get more?: Never true Within the past 12 months, did you worry whether your food would run out before you got money to buy more?: Never true Do you have trouble paying for medicines?: No Do you have trouble getting transportation to medical appointments?: No Do you have trouble paying your heating and electricity bill?: I choose not to answer this question Do you have trouble taking care of your child, family member or friend?: I choose not to answer this question Do you have trouble with day-to-day activities such as bathing, preparing meals, shopping, managing finances, etc.?: I choose not to answer this question Are you currently unemployed and looking for a job?: I choose not to answer this question Are you interested in more education?: I choose not to answer this question Please select the resources that you would like help with: None Currently or been in a relationship where the following occur: I choose not to answer THRIVE Score: 0 AUDIT C Alcohol Use Questionnaire (AUDIT-C) 1. How often do you have a drink containing alcohol?: Never 3. How often do you have six or more drinks on one occasion?: Never Total Score: 0 Score Reviewed/Action Taken: Yes NELSON-7 AMB Questionnaire NELSON-7 Date NELSON - 7 assessed: 02/25/25 Feeling nervous, anxious, or on edge: 0 = Not at all Not being able to stop or control worryin = Not at all Worrying too much about different things: 0 = Not at all Trouble relaxin = Not at all Being so restless that it is hard to sit still: 0 = Not at all Becoming easily annoyed or irritable: 0 = Not at all Feeling afraid as if something awful might happen: 0 = Not at all Total NELSON-7 score (0-4 normal; 5-9 mild; 10-14 moderate; 15-21 severe): 0 Source: Developed by Drs. Hunter Ahuja, Nusrat Kraus, Ifeanyi Lyn and colleagues, with an educational merry from [employer] Review of Systems Const Denies chills, Reports fatigue, Denies fever(s) and Denies headache(s) ENT Denies dysphagia, Denies dizziness, Denies otalgia, Denies headache(s), Denies neck pain, Denies odynophagia and Denies sore throat Card Denies chest pain, Denies palpitations and Denies dyspnea Resp Denies chest congestion, Denies cough and Denies dyspnea GI Denies abdominal pain, Denies constipation, Denies dysphagia, Denies heartburn, Denies diarrhea, Denies nausea, Denies odynophagia and Denies vomiting Denies difficulty urinating, Denies dysuria, Denies nocturia and Denies urinary frequency Musc Reports back pain (over the lower back - chronic), Reports arthralgias (involving multiple joints) and Denies neck pain Skin/Breast Denies rash Neuro Denies dizziness and Denies headache(s) Endo Reports fatigue and Denies palpitations Physical exam (Primary Care) Vital Signs: Last Vital Signs Pulse 78 02/25/25 16:16 BP 138/86 02/25/25 16:16 Pulse Ox 96 02/25/25 16:16 Oxygen Delivery Method Room Air 02/25/25 16:16 BMI result Body Mass Index 25.0 Tobacco/Smoking Status: Tobacco use Status Tobacco use date assessed 02/25/25 02/25/25 16:21 Patient Tobacco Use Status Former Tobacco user 02/25/25 16:21 Tobacco use type Cigarette 02/25/25 16:21 e-Cigarette/Vaping Use Never Used 02/25/25 16:21 PHQ-9: PHQ-9 Score PHQ-9: Total score 0 02/25/25 16:21 Depression Screening Interpretation: Negative Thrive Assessment: Date of Thrive Assessment Date Thrive assessed 02/25/25 02/25/25 16:21 Currently or been in a relationship where the following occur: I choose not to answer Const General: no acute distress and alert HENMT Ears: TM's normal bilaterally and EAC's normal Throat: Yes posterior oropharynx normal and Yes tonsils normal (no TP congestion) Neck Neck: Yes supple and No lymphadenopathy Thyroid: Thyroid normal Resp Auscultation: clear to auscultation bilaterally, no rales and no wheezes Cardio Rate: regular rate Rhythm: regular rhythm Heart sounds: no murmurs GI Palpation (GI): Soft to palpation and nontender Auscultation: normal bowel sounds General: Yes no CVA tenderness Back/Spine/Pelvis Back: no CVA tenderness Thoracic/Lumbar Spine: lumbar spinal tenderness Skin Rashes: no rashes Extrem General: Yes no clubbing, cyanosis or edema Coding Level of Care Code Est Pt Level 4 (17611) Diagnoses Psoriatic arthritis L40.50 Positive JULIUS (antinuclear antibody) R76.8 Failed back syndrome M96.1 Mixed hyperlipidemia E78.2 Essential hypertension I10 GERD without esophagitis K21.9 BPH w urinary obs/LUTS N40.1; N13.8 Erectile dysfunction, unspecified erectile dysfunction type N52.9 Erectile dysfunction type: unspecified Insomnia, unspecified type G47.00 Insomnia type: unspecified Additional Codes PHQ-9 - 17974 - PHQ-9 Billing: Yes ([id number]) Assessment & Plan Assessment & Plan (1) Psoriatic arthritis: Code(s): L40.50 - Arthropathic psoriasis, unspecified Category: Medical Plan: Continue Cosentyx 300 mg SQ every 4 weeks Patient continues to follow up with Dr. Acosta at [facility] for continuing management of his psoriatic arthritis Continue Triamcinolone acetonide 0.5% BID PRN for rash (2) Positive JULIUS (antinuclear antibody): Code(s): R76.8 - Other specified abnormal immunological findings in serum Category: Medical Plan: His arthralgia work ups done recently mostly came back negative with the exception of his JULIUS, in a nuclear homogenous pattern Patient currently does not appear to have any other signs or symptoms of lupus and discussed that his JULIUS positivity is likely due to his psoriatic arthritis (3) Failed back syndrome: Code(s): M96.1 - Postlaminectomy syndrome, not elsewhere classified Category: Medical Plan: Patient states that he's had 3 separate lower back surgeries with Dr. Kd Sloan in the past He has been maintained on pain medications for his lower back since 2008, which he states helped reasonably but states that by 4 pm everyday, he can hardly do anything strenuous anymore as his legs will feel increasing achy and weak He has been to pain management at [facility] in [place] and has had several back injections (both from Dr. Sloan and [facility]) in the past Recalls that he has also been tried on spinal stimulators and other pain management modalities, which either provided him with some pain relief but only temporarily or did not help at all He has considered seeing neurosurgery (Dr. Mclean) at [facility] for further management and has discussed this with Dr. Burk in the past States that Dr. Burk has sent him for some lumbar spine x-rays to update his condition but he has not gotten these done yet He is advised that I placed a new order for lumbar spine x-rays and he can get these done at any time - he has not yet had these done at this time Have advised him that realistically, as he already had 3 back surgeries done in the past, there may not be much neurosurgery can do for him unless there is any active or acute nerve compression going on in his lower back Reinforced activity and weight lifting restrictions to minimize aggravating his low back pain Continue Vicodin 7.5-325 mg Q 6 hours PRN (Rx refilled today) and Gabapentin 100 mg TID (4) Mixed hyperlipidemia: Code(s): E78.2 - Mixed hyperlipidemia Category: Medical Plan: Reinforced low cholesterol diet Continue Gemfibrozil 600 mg BID (5) Essential hypertension: Code(s): I10 - Essential (primary) hypertension Category: Medical Plan: Reinforced low sodium diet - goal is systolic BP of 120 to 130 mm or less Continue Amlodipine 10 mg QD and Lisinopril 40 mg QD Patient is reminded to continue monitoring his blood pressure regularly (6) GERD without esophagitis: Code(s): K21.9 - Gastro-esophageal reflux disease without esophagitis Category: Medical Plan: Dietary restrictions reinforced Continue Omeprazole 40 mg QD (7) BPH w urinary obs/LUTS: Code(s): N40.1 - Benign prostatic hyperplasia with lower urinary tract symptoms; N13.8 - Other obstructive and reflux uropathy Category: Medical Plan: Continue Tamsulosin 0.4 mg Q HS Follow up with urology as scheduled (8) Erectile dysfunction: Code(s): N52.9 - Male erectile dysfunction, unspecified Category: Medical Qualifiers: Erectile dysfunction type: unspecified Qualified Code(s): N52.9 - Male erectile dysfunction, unspecified Plan: Continue Sildenafil 100 mg PRN as instructed (9) Insomnia: Code(s): G47.00 - Insomnia, unspecified Category: Medical Qualifiers: Insomnia type: unspecified Qualified Code(s): G47.00 - Insomnia, unspecified Plan: Sleep hygiene reinforced Continue Zolpidem 10 mg Q HS PRN Plan Follow up in 1 month Medications: Refilled hydrocodone-acetaminophen 7.5-325 mg 1 tab PO Q6H PRN 120 tabs 0RF pain M96.1 - Postlaminectomy syndrome, not elsewhere classified
== END 2025-02-25 16:41 | disposition home or self-care (01) ==
LOC: HO.HMCH 15:54
PROVIDERS: PCP Internal Medicine; Visit Provider Internal Medicine
DX: L40.50 Arthropathic psoriasis, unspecified (principal); R76.8 Other specified abnormal immunological findings in serum; M96.1 Postlaminectomy syndrome, not elsewhere classified; E78.2 Mixed hyperlipidemia; I10 Essential (primary) hypertension; K21.9 Gastro-esophageal reflux disease without esophagitis; N40.1 Benign prostatic hyperplasia with lower urinary tract symptoms; N13.8 Other obstructive and reflux uropathy; N52.9 Male erectile dysfunction, unspecified; G47.00 Insomnia, unspecified

== ENCOUNTER → 2025-02-25 15:54 | Outpatient (BNVA) | payer MEDICARE, OTHER, SELFPAY | PROVIDERS: PCP Internal Medicine; Visit Provider Internal Medicine | DX: L40.50 Arthropathic psoriasis, unspecified (principal); R76.8 Other specified abnormal immunological findings in serum; M96.1 Postlaminectomy syndrome, not elsewhere classified; E78.2 Mixed hyperlipidemia; I10 Essential (primary) hypertension; K21.9 Gastro-esophageal reflux disease without esophagitis; N40.1 Benign prostatic hyperplasia with lower urinary tract symptoms; N13.8 Other obstructive and reflux uropathy; N52.9 Male erectile dysfunction, unspecified; G47.00 Insomnia, unspecified | CPT/HCPCS: 96127; 99212 ==

== ENCOUNTER 2025-03-28 09:41 | Outpatient (AMB) | payer MEDICARE, OTHER, SELFPAY ==
[2025-03-28 09:44] VITALS: BP 126/72; PULSE 66; O2SAT 96; BMI 24.8
--- NOTE | 2025-03-28 09:44 | A.OFFPC_ITS ---
Vital Signs 03/28/25 09:44 Height 5 ft 10 in Weight 173 lb 2 oz BMI 24.8 BP 126/72 Blood Pressure Location Lt brachial Position Sitting Pulse 66 Pulse Source Pulse Oximeter Pulse Oximetry (%) 96 Oxygen Delivery Method Room Air Intake Visit Reasons: med management Body Service Team Member Required: No Accompanied by: Self / Same As Patient Allergies adalimumab (From HUMIRA) Allergy (Unknown, Verified 03/28/25 10:21) RASH Ybytmqm-MCT-DqY Reductase Inhibitor (VSYRYAP-LEB-QDR REDUCTASE INHIBITOR) Allergy (Unknown, Verified 03/28/25 10:21) SWELLING Medication List - Last Reconciled 03/28/25 by Mulugeta Pelletier MD amlodipine 10 mg PO DAILY clobetasol 0.05% 1 appl topical BID gabapentin 100 mg PO TID gemfibrozil 600 mg PO BID hydrocodone-acetaminophen 7.5-325 mg 1 tab PO Q6H PRN lisinopril 40 mg PO DAILY omeprazole 40 mg PO DAILY orphenadrine citrate ER 100 mg PO BID secukinumab 300 mg subcut Q4W sildenafil 100 mg PO DAILY PRN triamcinolone acetonide 0.5% 1 appl topical BID zolpidem 10 mg PO BEDTIME PRN Tobacco use date assessed: 03/28/25 Fall risk assessment: No Falls in past year Last assessed Fall Risk: 03/28/25 Dental Screening Dental Screen Date: 03/28/25 Did you have a dental visit in the last 12 months?: No Did you have a dental problem in the last 6 months where you did not have access to dental care?: No Was dental information given to patient?: No HPI med management HPI Details Patient comes in today for his follow up visit States that he feels okay He denies any headaches or dizziness Denies any chest pains, no SOB No nausea/vomiting, no abdominal pain No change in bowel habits noted States that his chronic low back pain and joint pains remain adequately controlled on his current Rx - will need his pain med Rx and Gabapentin refilled today States that he normally just takes his Gabapentin at night as he finds that he feels a little dizzy and lethargic when he takes his Gabapentin during the day FORMERLY [facility], [facility]–1983 Medical History Positive JULIUS (antinuclear antibody) Insomnia GERD without esophagitis Essential hypertension Mixed hyperlipidemia Polyuria Hyperlipidemia Psoriatic arthritis Benign essential HTN Primary osteoarthritis of right knee Erectile dysfunction Enlarged prostate without lower urinary tract symptoms (luts) Surgical History History of surgery History of laparoscopic cholecystectomy History of tonsillectomy History of arthroscopy of right knee History of appendectomy Family History Father Degenerative joint disease Mother Psoriasis Rheumatoid arthritis Social History Housing: House Housing Other:: refused to answer Alcohol intake: never Patient Tobacco Use Status: Former Tobacco user Tobacco use type: Cigarette e-Cigarette/Vaping Use: Never Used Second Hand Smoke Exposure: Yes service: No Current occupational status: other Current occupational exposures/hazards: No Cognitive needs: No Hearing needs: No Vision needs: No Questionnaire PHQ-9 Over the last 2 weeks, how often have you been bothered by any of the following problems? 1. Little interest or pleasure in doing things: not at all 2. Feeling down, depressed, or hopeless: not at all 3. Trouble falling or staying asleep, or sleeping too much: not at all 4. Feeling tired or having little energy: not at all 5. Poor appetite or overeating: not at all 6. Feeling bad about yourself - or that you are a failure or have let yourself or your family down: not at all 7. Trouble concentrating on things, such as reading the newspaper or watching television: not at all 8. Moving or speaking so slowly that other people could have noticed. Or the opposite - being so fidgety or restless that you have been moving around a lot more than usual: not at all 9. Thoughts that you would be better off or of hurting yourself in some way: not at all Total score: 0 Depression Screening Interpretation: Negative Depression Screening Done: Yes 58258 - PHQ-9 Billing: Yes Source: Developed by Drs. Hunter Ahuja, Nusrat Kraus, Ifeanyi Lyn and colleagues, with an educational merry from [employer]. Thrive Questionnaire Date Thrive assessed: 03/28/25 I am a: Patient What is your living situation today?: I have a steady place to live Within the past 12 months, did the food you bought not last and you didn't have the money to get more?: Never true Within the past 12 months, did you worry whether your food would run out before you got money to buy more?: Never true Do you have trouble paying for medicines?: No Do you have trouble getting transportation to medical appointments?: No Do you have trouble paying your heating and electricity bill?: I choose not to answer this question Do you have trouble taking care of your child, family member or friend?: I choose not to answer this question Do you have trouble with day-to-day activities such as bathing, preparing meals, shopping, managing finances, etc.?: I choose not to answer this question Are you currently unemployed and looking for a job?: I choose not to answer this question Are you interested in more education?: I choose not to answer this question Please select the resources that you would like help with: None Currently or been in a relationship where the following occur: I choose not to answer THRIVE Score: 0 AUDIT C Alcohol Use Questionnaire (AUDIT-C) 1. How often do you have a drink containing alcohol?: Never 3. How often do you have six or more drinks on one occasion?: Never Total Score: 0 Score Reviewed/Action Taken: Yes NELSON-7 AMB Questionnaire NELSON-7 Date NELSON - 7 assessed: 03/28/25 Feeling nervous, anxious, or on edge: 0 = Not at all Not being able to stop or control worryin = Not at all Worrying too much about different things: 0 = Not at all Trouble relaxin = Not at all Being so restless that it is hard to sit still: 0 = Not at all Becoming easily annoyed or irritable: 0 = Not at all Feeling afraid as if something awful might happen: 0 = Not at all Total NELSON-7 score (0-4 normal; 5-9 mild; 10-14 moderate; 15-21 severe): 0 Source: Developed by Drs. Hunter Ahuja, Nusrat Kraus, Ifeanyi Lyn and colleagues, with an educational merry from [employer]. Review of Systems Const Denies chills, Reports fatigue, Denies fever(s) and Denies headache(s) ENT Denies dysphagia, Denies dizziness, Denies otalgia, Denies headache(s), Denies neck pain, Denies odynophagia and Denies sore throat Card Denies chest pain, Denies palpitations and Denies dyspnea Resp Denies chest congestion, Denies cough and Denies dyspnea GI Denies abdominal pain, Denies constipation, Denies dysphagia, Denies heartburn, Denies diarrhea, Denies nausea, Denies odynophagia and Denies vomiting Denies difficulty urinating, Denies dysuria, Denies nocturia and Denies urinary frequency Musc Reports back pain (over the lower back - chronic), Reports arthralgias (involving multiple joints) and Denies neck pain Skin/Breast Denies rash Neuro Denies dizziness and Denies headache(s) Endo Reports fatigue and Denies palpitations Physical exam (Primary Care) Vital Signs: Last Vital Signs Pulse 66 03/28/25 09:44 BP 126/72 03/28/25 09:44 Pulse Ox 96 03/28/25 09:44 Oxygen Delivery Method Room Air 03/28/25 09:44 BMI result Body Mass Index 24.8 Tobacco/Smoking Status: Tobacco use Status Tobacco use date assessed 03/28/25 03/28/25 09:59 Patient Tobacco Use Status Former Tobacco user 03/28/25 09:48 Tobacco use type Cigarette 03/28/25 09:48 e-Cigarette/Vaping Use Never Used 03/28/25 09:48 PHQ-9: PHQ-9 Score PHQ-9: Total score 0 03/28/25 09:59 Depression Screening Interpretation: Negative Thrive Assessment: Date of Thrive Assessment Date Thrive assessed 03/28/25 03/28/25 09:59 Currently or been in a relationship where the following occur: I choose not to answer Const General: no acute distress and alert HENMT Throat: Yes posterior oropharynx normal and Yes tonsils normal (no TP congestion) Neck Neck: Yes supple and No lymphadenopathy Thyroid: Thyroid normal Resp Auscultation: clear to auscultation bilaterally, no rales and no wheezes Cardio Rate: regular rate Rhythm: regular rhythm Heart sounds: no murmurs GI Palpation (GI): Soft to palpation and nontender Auscultation: normal bowel sounds General: Yes no CVA tenderness Back/Spine/Pelvis Back: no CVA tenderness Thoracic/Lumbar Spine: lumbar spinal tenderness Skin Rashes: no rashes Extrem General: Yes no clubbing, cyanosis or edema Coding Level of Care Code Est Pt Level 4 (18813) Diagnoses Failed back syndrome M96.1 Psoriatic arthritis L40.50 Positive JULIUS (antinuclear antibody) R76.8 Mixed hyperlipidemia E78.2 Essential hypertension I10 GERD without esophagitis K21.9 BPH w urinary obs/LUTS N40.1; N13.8 Erectile dysfunction, unspecified erectile dysfunction type N52.9 Erectile dysfunction type: unspecified Insomnia, unspecified type G47.00 Insomnia type: unspecified Additional Codes PHQ-9 - 23118 - PHQ-9 Billing: Yes ([id number]) Assessment & Plan Assessment & Plan (1) Failed back syndrome: Code(s): M96.1 - Postlaminectomy syndrome, not elsewhere classified Category: Medical Plan: Patient reportedly has had 3 separate lower back surgeries with Dr. Kd Sloan in the past He has been maintained on pain medications for his lower back since 2008, which he states help reasonably but states that by 4 pm everyday, he can hardly do anything strenuous anymore as his legs will feel increasing achy and weak He has been referred to pain management at [facility] in [place] and has had several back injections (both from Dr. Sloan and [facility]) in the past Recalls that he has also been tried on spinal stimulators and other pain management modalities, which either provided him with some pain relief but only temporarily or did not help at all He has considered seeing neurosurgery (Dr. Mclean) at [facility] for further management and has discussed this with Dr. Burk in the past States that Dr. Burk has sent him for some lumbar spine x-rays to update his condition but he has not gotten these done yet He is advised that I placed a new order for lumbar spine x-rays and he can get these done at any time - he still has not yet had these done at this time Have advised him that realistically, as he already had 3 back surgeries done in the past, there may not be much neurosurgery can do for him unless there is any active or acute nerve compression in his lower back at this time Reinforced activity and weight lifting restrictions to avoid aggravating his low back pain Continue Vicodin 7.5-325 mg Q 6 hours PRN and Gabapentin 100 mg TID - Rx refilled (2) Psoriatic arthritis: Code(s): L40.50 - Arthropathic psoriasis, unspecified Category: Medical Plan: Patient continues to follow up with Dr. Acosta at [facility] for continuing management of his psoriatic arthritis Continue Cosentyx 300 mg SQ every 4 weeks Continue Triamcinolone acetonide 0.5% BID PRN for rash (3) Positive JULIUS (antinuclear antibody): Code(s): R76.8 - Other specified abnormal immunological findings in serum Category: Medical Plan: His arthralgia work ups done most recently came back negative with the exception of his JULIUS, in a nuclear homogenous pattern Patient currently does not appear to have any other signs or symptoms of lupus - have discussed with him that his JULIUS positivity is likely due to his psoriatic arthritis (4) Mixed hyperlipidemia: Code(s): E78.2 - Mixed hyperlipidemia Category: Medical Plan: Reinforced low cholesterol diet Continue Gemfibrozil 600 mg BID Will have patient recheck his labs and fasting lipids in a few weeks for follow up (5) Essential hypertension: Code(s): I10 - Essential (primary) hypertension Category: Medical Plan: Reinforced low sodium diet - goal is systolic BP of 120 to 130 mm or less Continue Amlodipine 10 mg QD and Lisinopril 40 mg QD Patient is reminded to continue monitoring his blood pressure regularly (6) GERD without esophagitis: Code(s): K21.9 - Gastro-esophageal reflux disease without esophagitis Category: Medical Plan: Dietary restrictions reinforced Continue Omeprazole 40 mg QD (7) BPH w urinary obs/LUTS: Code(s): N40.1 - Benign prostatic hyperplasia with lower urinary tract symptoms; N13.8 - Other obstructive and reflux uropathy Category: Medical Plan: Continue Tamsulosin 0.4 mg Q HS Follow up with urology as scheduled (8) Erectile dysfunction: Code(s): N52.9 - Male erectile dysfunction, unspecified Category: Medical Qualifiers: Erectile dysfunction type: unspecified Qualified Code(s): N52.9 - Male erectile dysfunction, unspecified Plan: Continue Sildenafil 100 mg PRN as instructed (9) Insomnia: Code(s): G47.00 - Insomnia, unspecified Category: Medical Qualifiers: Insomnia type: unspecified Qualified Code(s): G47.00 - Insomnia, unspecified Plan: Sleep hygiene reinforced Continue Zolpidem 10 mg Q HS PRN Plan Follow up in 1 month Orders: Orders Lipid Panel 04/24/25 E78.00 - Pure hypercholesterolemia, unspecified Complete Blood Count Auto Diff 04/24/25 D64.9 - Anemia, unspecified Comprehensive [place]. Panel Fast 04/24/25 E78.00 - Pure hypercholesterolemia, unspecified Medications: Refilled hydrocodone-acetaminophen 7.5-325 mg 1 tab PO Q6H PRN 120 tabs 0RF pain M96.1 - Postlaminectomy syndrome, not elsewhere classified gabapentin 100 mg PO TID 90 caps 5RF
--- OUTSIDE RECORDS SUMMARY | 2025-03-28 10:08 | XMS_ITS | Patient Health Record ---
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 Name Role Phone Chad Burk MD Primary Care Provider Hunter Camacho Unavailable [phone] DEBBIE LORENZ Unavailable Unavailable Allergies Allergen (clinical drug ingredient) Drug/Non Drug Allergy documented on EMR Reaction Allergy Type Onset Date Status Humira Unknown Drug Allergy Active Reason For Referral No Information Medications Medication SIG (Take, Route, Frequency, Duration) Notes Start Date End Date Status Allopurinol prn gout 09/26/2024 09/26/2024 Active Enbrel SureClick 09/26/2024 09/26/2024 A ctive Orphenadrine Citrate CR 09/26/202409/26 Active Vicodin 09/26/2024 09/26/2024 Active Leflunomide 09/26/2024 09/26/2024 Active Omeprazole 20 mg bid 09/26/2024 09/26/2024 A ctive Viagra 09/26/2024 09/26/2024 Active Gemfibrozil 09/26/2024 09/26/2024 Active Zolpidem Tartrate 09/26/2024 09/26/2024 Active amLODIPine Besylate 09/26/2024 1 Active Flonase 09/26/2024 09/26/2024 Active Lisinopril 09/26/2024 09/26/2024 Active Clobetasol Propionate 09/26/2024 001 Active Folic Acid Active Triamcinolone Acetonide 09/26/202409/26 Active Problems Problem Type SNOMED Code ICD Code Onset Dates Problem Status W/U Status Risk Notes Problem Colon cancer screening (087079311) Colon cancer screening (V76.51) Active confirmed Problem Gastroesophageal reflux disease (844402469) GERD (gastroesopha geal reflux disease) (530.81) Active confirmed Plan Of Treatment Future Test Test Name Order Date UPPER GI ENDOSCOPY 12/13/2012 COLONOSCOPY 12/13/2012 Insurance Providers Payer Name Payer Address Payer Phone Subscriber Number Group Number Insured Name Patient Relationship to Insured Coverage Start Date Coverage End Date MEDICARE OF [place] [address] [place] [address] [id number] BLANKA RANGEL Self - patient is the insured [facility] [address] [place] [phone] [id number] BLANKA RANGEL Self - patient is the insured Medical (General) History Medical History History ICD Code GERD HTN Hypercholesterolemia Spinal stenosis [facility]ative [facility] Gout Denies [place],DM,CVA,Lung disease,renal dise ase Psoriatic arthritis-sees Dr. Acosta Surgical History Surgery Date(Month/Year) appendix tonsils R knee arthroscopy
== END 2025-03-28 10:27 | disposition home or self-care (01) ==
LOC: HO.HMCH 09:42
PROVIDERS: PCP Internal Medicine; Visit Provider Internal Medicine
DX: M96.1 Postlaminectomy syndrome, not elsewhere classified (principal); L40.50 Arthropathic psoriasis, unspecified; R76.8 Other specified abnormal immunological findings in serum; E78.2 Mixed hyperlipidemia; I10 Essential (primary) hypertension; K21.9 Gastro-esophageal reflux disease without esophagitis; N40.1 Benign prostatic hyperplasia with lower urinary tract symptoms; N13.8 Other obstructive and reflux uropathy; N52.9 Male erectile dysfunction, unspecified; G47.00 Insomnia, unspecified

== ENCOUNTER → 2025-03-28 09:41 | Outpatient (BNVA) | payer MEDICARE, OTHER, SELFPAY | PROVIDERS: PCP Internal Medicine; Visit Provider Internal Medicine | DX: M96.1 Postlaminectomy syndrome, not elsewhere classified (principal); L40.50 Arthropathic psoriasis, unspecified; R76.8 Other specified abnormal immunological findings in serum; E78.2 Mixed hyperlipidemia; I10 Essential (primary) hypertension; K21.9 Gastro-esophageal reflux disease without esophagitis; N40.1 Benign prostatic hyperplasia with lower urinary tract symptoms; N13.8 Other obstructive and reflux uropathy; N52.9 Male erectile dysfunction, unspecified; G47.00 Insomnia, unspecified | CPT/HCPCS: 96127; 99212 ==

== ENCOUNTER 2025-04-19 08:55 | Outpatient (REF) | payer MEDICARE, OTHER, SELFPAY ==
[2025-04-19 09:06] LABS: MANUAL DIFF FLAG NO
--- OUTSIDE RECORDS SUMMARY | 2025-04-19 09:13 | XMS_ITS | Patient Health Record ---
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 Artist Name Role Phone Chad Burk MD Primary Care Provider Hunter Camacho Unavailable [phone] DEBBIE LORENZ Unavailable Unavailable Allergies Allergen (clinical [...] Status Risk Notes Problem Colon cancer screening (722607411) Colon cancer screening (V76.51) Active confirmed Problem Gastroesophageal reflux disease (024153803) GERD (gastroesopha geal reflux disease) (530.81) Active confirmed Plan Of Treatment Future Test Test Name Order Date UPPER GI ENDOSCOPY 12/13/2012 COLONOSCOPY 12/13/2012 Insurance Providers Payer Name Payer Address Payer Phone Subscriber Number Group Number Insured Name Patient Relationship to Insured Coverage Start Date Coverage End Date [place]ARE [place] [address] [place] [address] [id number] BLANKA RANGEL Self - patient is the insured [facility] [address] [place] [phone] [id number] BLANKA RANGEL Self - patient is the insured Medical (General) History Medical History History ICD Code GERD HTN Hypercholesterolemia Spinal stenosis [facility] Gout Denies [place],DM,CVA,Lung disease,renal dise ase Psoriatic arthritis-sees Dr. Acosta Surgical History Surgery Date(Month/Year) appendix tonsils R knee arthroscopy
[2025-04-19 09:44] LABS: Hematocrit 35.5 % (42.0-52.0); Hemoglobin 11.7 g/dl (14.0-18.0); Imm Gran Abs Auto 0.01 X10*3/uL (0.00-0.03); Imm Gran Pct Auto 0.3 % (0.0-0.4); Lymphocytes Absolute Auto 0.8 X10*3/uL (1.2-4.9); Mean Corpuscular HGB Conc 33.0 g/dl (31.0-36.0); Mean Corpuscular Hemoglobin 26.9 pg (27.0-33.0); Mean Corpuscular Volume 81.6 fL (80.0-98.0); NRBC Abs Auto 0.000 X10*3/uL (0.0-0.012); NRBC Pct Auto 0.0 /100WBC (0.0-0.2); Platelet Count 222 X10*3/uL (160-400); Red Blood Count 4.35 X10*6/uL (4.60-5.80); White Blood Count 3.0 X10*3/uL (4.8-10.8)
[2025-04-19 10:13] LABS: Alanine Aminotransferase 13 U/L (0-40); Albumin Level 4.8 g/dL (3.5-5.0); Alkaline Phosphatase 53 U/L (39-117); Anion Gap 13 (12-20); Aspartate Amino Transferase 17 U/L (5-37); Blood Urea Nitrogen 16 mg/dL (9-16); Calcium 9.4 mg/dL (8.4-10.2); Carbon Dioxide 25 mmol/L (22-29); Chloride 105 mmol/L (96-108); Cholesterol 159 mg/dL (<200); Estimated Glomerular Filt Rate > 60; HDL Cholesterol 74 mg/dL (>40); Potassium 4.4 mmol/L (3.3-5.1); Sodium 139 mmol/L (135-145); Total Protein 7.2 g/dL (6.5-8.0); Triglycerides 43 mg/dL (<150)
== END 2025-04-19 08:56 | disposition home or self-care (01) ==
LOC: HO.LAB 08:55
PROVIDERS: PCP Internal Medicine; Visit Provider Internal Medicine
DX: E78.00 Pure hypercholesterolemia, unspecified (principal); D64.9 Anemia, unspecified
CPT/HCPCS: 36415; 80053; 80061; 85025

== ENCOUNTER 2025-04-29 10:48 | Outpatient (AMB) | payer MEDICARE, OTHER, SELFPAY ==
[2025-04-29 10:49] VITALS: BP 140/70; PULSE 67; O2SAT 96; BMI 25.2
--- NOTE | 2025-04-29 10:49 | MHC.PC.OV ---
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 Required: No Accompanied by: Self / Same As Patient Allergies adalimumab (From [facility]) Allergy (Unknown, Verified 04/29/25 11:35) RASH Gbawhuc-PLZ-FrL Reductase Inhibitor (UOQFFUL-PTV-LIF REDUCTASE INHIBITOR) Allergy (Unknown, Verified 04/29/25 11:35) SWELLING Medication List - Last Reconciled 04/29/25 by Mulugeta Pelletier MD amlodipine 10 mg PO DAILY clobetasol 0.05% 1 appl topical BID gabapentin 100 mg PO TID gemfibrozil 600 mg PO BID hydrocodone-acetaminophen 7.5-325 mg 1 tab PO Q6H PRN lisinopril 40 mg PO DAILY omeprazole 40 mg PO DAILY orphenadrine citrate ER 100 mg PO BID secukinumab 300 mg subcut Q4W sildenafil 100 mg PO DAILY PRN triamcinolone acetonide 0.5% 1 appl topical BID zolpidem 10 mg PO BEDTIME PRN Tobacco use date assessed: 04/29/25 Fall risk assessment: No Falls in past year Last assessed Fall Risk: 04/29/25 Dental Screening Dental Screen Date: 04/29/25 Did you have a dental visit in the last 12 months?: Yes Did you have a dental problem in the last 6 months where you did not have access to dental care?: No Was dental information given to patient?: Patient has dentist HPI Med Management HPI Details Patient comes in today for his follow up visit States that he feels okay He denies any headaches or dizziness Denies any chest pains, no SOB No nausea/vomiting, no abdominal pain No change in bowel habits noted States that his chronic low back pain and joint pains remain adequately controlled on his current Rx - will need his pain med Rx and Zolpidem Rx refilled today He had his follow up labs done last week - to discuss his results [facility] Medical History Positive JULIUS (antinuclear antibody) Insomnia GERD without esophagitis Essential hypertension Mixed hyperlipidemia Polyuria Hyperlipidemia Psoriatic arthritis Benign essential HTN Primary osteoarthritis of right knee Erectile dysfunction Enlarged prostate without lower urinary tract symptoms (luts) Surgical History History of surgery History of laparoscopic cholecystectomy History of tonsillectomy History of arthroscopy of right knee History of appendectomy Family History Father Degenerative joint disease Mother Psoriasis Rheumatoid arthritis Social History Housing: House Housing Other:: refused to answer Alcohol intake: never Patient Tobacco Use Status: Former Tobacco user Tobacco use type: Cigarette e-Cigarette/Vaping Use: Never Used Second Hand Smoke Exposure: Yes service: No Current occupational status: other Current occupational exposures/hazards: No Cognitive needs: No Hearing needs: No Vision needs: No Questionnaire PHQ-9 Over the last 2 weeks, how often have you been bothered by any of the following problems? 1. Little interest or pleasure in doing things: not at all 2. Feeling down, depressed, or hopeless: not at all 3. Trouble falling or staying asleep, or sleeping too much: not at all 4. Feeling tired or having little energy: not at all 5. Poor appetite or overeating: not at all 6. Feeling bad about yourself - or that you are a failure or have let yourself or your family down: not at all 7. Trouble concentrating on things, such as reading the newspaper or watching television: not at all 8. Moving or speaking so slowly that other people could have noticed. Or the opposite - being so fidgety or restless that you have been moving around a lot more than usual: not at all 9. Thoughts that you would be better off or of hurting yourself in some way: not at all Total score: 0 Depression Screening Interpretation: Negative Depression Screening Done: Yes 45388 - PHQ-9 Billing: Yes Source: Developed by Drs. Hunter Ahuja, Nusrat Kraus, Ifeanyi Lyn and colleagues, with an educational merry from [employer]. Thrive Questionnaire Date Thrive assessed: 04/29/25 I am a: Patient What is your living situation today?: I have a steady place to live Within the past 12 months, did the food you bought not last and you didn't have the money to get more?: Never true Within the past 12 months, did you worry whether your food would run out before you got money to buy more?: Never true Do you have trouble paying for medicines?: No Do you have trouble getting transportation to medical appointments?: No Do you have trouble paying your heating and electricity bill?: I choose not to answer this question Do you have trouble taking care of your child, family member or friend?: I choose not to answer this question Do you have trouble with day-to-day activities such as bathing, preparing meals, shopping, managing finances, etc.?: I choose not to answer this question Are you currently unemployed and looking for a job?: I choose not to answer this question Are you interested in more education?: I choose not to answer this question Please select the resources that you would like help with: None Currently or been in a relationship where the following occur: I choose not to answer THRIVE Score: 0 AUDIT C Alcohol Use Questionnaire (AUDIT-C) 1. How often do you have a drink containing alcohol?: Never 3. How often do you have six or more drinks on one occasion?: Never Total Score: 0 Score Reviewed/Action Taken: Yes NELSON-7 AMB Questionnaire NELSON-7 Date NELSON - 7 assessed: 04/29/25 Feeling nervous, anxious, or on edge: 0 = Not at all Not being able to stop or control worryin = Not at all Worrying too much about different things: 0 = Not at all Trouble relaxin = Not at all Being so restless that it is hard to sit still: 0 = Not at all Becoming easily annoyed or irritable: 0 = Not at all Feeling afraid as if something awful might happen: 0 = Not at all Total NELSON-7 score (0-4 normal; 5-9 mild; 10-14 moderate; 15-21 severe): 0 Source: Developed by Drs. Hunter Ahuja, Nusrat Kraus, Ifeanyi Lyn and colleagues, with an educational merry from [employer]. Review of Systems Const Denies chills, Reports fatigue, Denies fever(s) and Denies headache(s) ENT Denies dysphagia, Denies dizziness, Denies otalgia, Denies headache(s), Denies neck pain, Denies odynophagia and Denies sore throat Card Denies chest pain, Denies palpitations and Denies dyspnea Resp Denies chest congestion, Denies cough and Denies dyspnea GI Denies abdominal pain, Denies constipation, Denies dysphagia, Denies heartburn, Denies diarrhea, Denies nausea, Denies odynophagia and Denies vomiting Denies difficulty urinating, Denies dysuria, Denies nocturia and Denies urinary frequency Musc Reports back pain (over the lower back - chronic), Reports arthralgias (involving multiple joints) and Denies neck pain Skin/Breast Denies rash Neuro Denies dizziness and Denies headache(s) Endo Reports fatigue and Denies palpitations Physical exam (Primary Care) Vital Signs: Last Vital Signs Pulse 67 04/29/25 10:49 BP 140/70 H 04/29/25 10:49 Pulse Ox 96 04/29/25 10:49 Oxygen Delivery Method Room Air 04/29/25 10:49 BMI result Body Mass Index 25.2 Tobacco/Smoking Status: Tobacco use Status Tobacco use date assessed 04/29/25 04/29/25 10:51 Patient Tobacco Use Status Former Tobacco user 04/29/25 10:51 Tobacco use type Cigarette 04/29/25 10:51 e-Cigarette/Vaping Use Never Used 04/29/25 10:51 PHQ-9: PHQ-9 Score PHQ-9: Total score 0 04/29/25 11:02 Depression Screening Interpretation: Negative Thrive Assessment: Date of Thrive Assessment Date Thrive assessed 04/29/25 04/29/25 10:51 Currently or been in a relationship where the following occur: I choose not to answer Const General: no acute distress and alert HENMT Throat: Yes posterior oropharynx normal and Yes tonsils normal (no TP congestion) Neck Neck: Yes supple and No lymphadenopathy Thyroid: Thyroid normal Resp Auscultation: clear to auscultation bilaterally, no rales and no wheezes Cardio Rate: regular rate Rhythm: regular rhythm Heart sounds: no murmurs GI Palpation (GI): Soft to palpation and nontender Auscultation: normal bowel sounds General: Yes no CVA tenderness Back/Spine/Pelvis Back: no CVA tenderness Thoracic/Lumbar Spine: lumbar spinal tenderness Skin Rashes: no rashes Extrem General: Yes no clubbing, cyanosis or edema Results Reviewed Results Reviewed: Laboratory Tests 04/19/25 09:04 WBC 3.0 L Hgb 11.7 L Hct 35.5 L Plt Count 222 Sodium 139 Potassium 4.4 Creatinine 0.92 Estimated GFR > 60 Fasting Glucose 105 H Calcium 9.4 AST 17 ALT 13 Triglycerides 43 Cholesterol 159 LDL Cholesterol, Calc 77 HDL Cholesterol 74 Coding Level of Care Code Est Pt Level 4 (85801) Diagnoses Failed back syndrome M96.1 Psoriatic arthritis L40.50 Positive JULIUS (antinuclear antibody) R76.8 Mixed hyperlipidemia E78.2 Essential hypertension I10 GERD without esophagitis K21.9 BPH w urinary obs/LUTS N40.1; N13.8 Erectile dysfunction, unspecified erectile dysfunction type N52.9 Erectile dysfunction type: unspecified Insomnia, unspecified type G47.00 Insomnia type: unspecified Additional Codes PHQ-9 - 86959 - PHQ-9 Billing: Yes ([id number]) Assessment & Plan Assessment & Plan (1) Failed back syndrome: Code(s): M96.1 - Postlaminectomy syndrome, not elsewhere classified Category: Medical Plan: Patient reportedly has had 3 separate lower back surgeries with Dr. Kd Sloan in the past He has been maintained on pain medications for his lower back since 2008, which he states help reasonably but states that by 4 pm everyday, he can hardly do anything strenuous anymore as his legs will feel increasing achy and weak He has been referred to pain management at [facility] in [place] and has had several back injections (both from Dr. Sloan and [facility]) in the past Recalls that he has also been tried on spinal stimulators and other pain management modalities, which either provided him with some pain relief but only temporarily or did not help at all He has considered seeing neurosurgery (Dr. Mclean) at [facility] for further management and has discussed this with Dr. Burk in the past States that Dr. Burk has sent him for some lumbar spine x-rays to update his condition but he has not gotten these done yet He is advised that I placed a new order for lumbar spine x-rays and he can get these done at any time - he still has not yet had these done at this time Have advised him that realistically, as he already had 3 back surgeries done in the past, there may not be much neurosurgery can do for him unless there is any active or acute nerve compression in his lower back at this time Reinforced activity and weight lifting restrictions to avoid aggravating his low back pain Continue Vicodin 7.5-325 mg Q 6 hours PRN (Rx refilled) and Gabapentin 100 mg TID (2) Psoriatic arthritis: Code(s): L40.50 - Arthropathic psoriasis, unspecified Category: Medical Plan: Patient continues to follow up with Dr. Acosta at [facility] for continuing management of his psoriatic arthritis Continue Cosentyx 300 mg SQ every 4 weeks Continue Triamcinolone acetonide 0.5% BID PRN for rash (3) Positive JULIUS (antinuclear antibody): Code(s): R76.8 - Other specified abnormal immunological findings in serum Category: Medical Plan: His arthralgia work ups done most recently came back negative with the exception of his JULIUS, in a nuclear homogenous pattern Patient currently does not appear to have any other signs or symptoms of lupus - have discussed with him that his JULIUS positivity is likely due to his psoriatic arthritis (4) Mixed hyperlipidemia: Code(s): E78.2 - Mixed hyperlipidemia Category: Medical Plan: Results of his labs done last week reviewed and discussed with patient - his cholesterol numbers are at goal Reinforced low cholesterol diet Continue Gemfibrozil 600 mg BID (5) Essential hypertension: Code(s): I10 - Essential (primary) hypertension Category: Medical Plan: Reinforced low sodium diet - goal is systolic BP of 120 to 130 mm or less Continue Amlodipine 10 mg QD and Lisinopril 40 mg QD Patient is reminded to continue monitoring his blood pressure regularly (6) GERD without esophagitis: Code(s): K21.9 - Gastro-esophageal reflux disease without esophagitis Category: Medical Plan: Dietary restrictions reinforced Continue Omeprazole 40 mg QD (7) BPH w urinary obs/LUTS: Code(s): N40.1 - Benign prostatic hyperplasia with lower urinary tract symptoms; N13.8 - Other obstructive and reflux uropathy Category: Medical Plan: Continue Tamsulosin 0.4 mg Q HS Follow up with urology as scheduled (8) Erectile dysfunction: Code(s): N52.9 - Male erectile dysfunction, unspecified Category: Medical Qualifiers: Erectile dysfunction type: unspecified Qualified Code(s): N52.9 - Male erectile dysfunction, unspecified Plan: Continue Sildenafil 100 mg PRN as instructed (9) Insomnia: Code(s): G47.00 - Insomnia, unspecified Category: Medical Qualifiers: Insomnia type: unspecified Qualified Code(s): G47.00 - Insomnia, unspecified Plan: Sleep hygiene reinforced Continue Zolpidem 10 mg Q HS PRN - Rx refilled Plan Follow up in 1 month Medications: Refilled hydrocodone-acetaminophen 7.5-325 mg 1 tab PO Q6H PRN 120 tabs 0RF pain M96.1 - Postlaminectomy syndrome, not elsewhere classified zolpidem 10 mg PO BEDTIME PRN 30 tabs 3RF insomnia
--- OUTSIDE RECORDS SUMMARY | 2025-04-29 11:45 | XMS_ITS | Patient Health Record ---
Author Organization [facility] Address [address] [place] [address] Care Team Providers Care Business Banking Manager Name Role Phone Chad Burk MD Primary Care Provider Hunter Camacho Unavailable [phone] DEBBIE LORENZ Unavailable Unavailable Allergies Allergen (clinical [...] Status Risk Notes Problem Colon cancer screening (045518290) Colon cancer screening (V76.51) Active confirmed Problem Gastroesophageal reflux disease (139684663) GERD (gastroesopha geal reflux disease) (530.81) Active confirmed Plan Of Treatment Future Test Test Name Order Date UPPER GI ENDOSCOPY 12/13/2012 COLONOSCOPY 12/13/2012 Insurance Providers Payer Name Payer Address Payer Phone Subscriber Number Group Number Insured Name Patient Relationship to Insured Coverage Start Date Coverage End Date MEDICARE OF [place] [address] [place] [address] [id number] BLANKA RANGEL Self - patient is the insured [facility] [address] [place] [phone] [id number] BLANKA RANGEL Self - patient is the insured Medical (General) History Medical History History ICD Code GERD HTN Hypercholesterolemia Spinal stenosis [facility] Gout Denies FL,DM,CVA,Lung disease,renal dise ase Psoriatic arthritis-sees Dr. Acosta Surgical History Surgery Date(Month/Year) appendix tonsils R knee arthroscopy
== END 2025-04-29 11:44 | disposition home or self-care (01) ==
LOC: HO.HMCH 10:49
PROVIDERS: PCP Internal Medicine; Visit Provider Internal Medicine
DX: M96.1 Postlaminectomy syndrome, not elsewhere classified (principal); L40.50 Arthropathic psoriasis, unspecified; R76.8 Other specified abnormal immunological findings in serum; E78.2 Mixed hyperlipidemia; I10 Essential (primary) hypertension; K21.9 Gastro-esophageal reflux disease without esophagitis; N40.1 Benign prostatic hyperplasia with lower urinary tract symptoms; N13.8 Other obstructive and reflux uropathy; N52.9 Male erectile dysfunction, unspecified; G47.00 Insomnia, unspecified

== ENCOUNTER → 2025-04-29 10:48 | Outpatient (BNVA) | payer MEDICARE, OTHER, SELFPAY | PROVIDERS: PCP Internal Medicine; Visit Provider Internal Medicine | DX: M96.1 Postlaminectomy syndrome, not elsewhere classified (principal); L40.50 Arthropathic psoriasis, unspecified; R76.8 Other specified abnormal immunological findings in serum; E78.2 Mixed hyperlipidemia; I10 Essential (primary) hypertension; K21.9 Gastro-esophageal reflux disease without esophagitis; N40.1 Benign prostatic hyperplasia with lower urinary tract symptoms; N13.8 Other obstructive and reflux uropathy; N52.9 Male erectile dysfunction, unspecified; G47.00 Insomnia, unspecified | CPT/HCPCS: 96127; 99212 ==

== ENCOUNTER 2025-05-31 09:36 | Outpatient (AMB) | payer MEDICARE, OTHER, SELFPAY ==
[2025-05-31 09:38] VITALS: BP 150/66; PULSE 70; RESP 18; TEMP 36.3; O2SAT 97; BMI 24.9
--- NOTE | 2025-05-31 09:38 | MHC.PC.OV ---
Vital Signs 05/31/25 09:38 Height 5 ft 10 in Weight 173 lb 8 oz BMI 24.9 BP 150/66 H Blood Pressure Location Lt brachial Position Sitting Respiration 18 Pulse 70 Pulse Source Pulse Oximeter Temp 97.3 F Temp Source Temporal Artery Scan Pulse Oximetry (%) 97 Oxygen Delivery Method Room Air Intake Visit Reasons: Med Management Executive Assistant Required: No Accompanied by: Self / Same As Patient Allergies adalimumab (From HUMIRA) Allergy (Unknown, Verified 05/31/25 09:57) RASH Owohgaa-QGH-UtM Reductase Inhibitor ([id number] REDUCTASE INHIBITOR) Allergy (Unknown, Verified 05/31/25 09:57) SWELLING Medication List - Last Reconciled 05/31/25 by Mulugeta Pelletier MD amlodipine 10 mg PO DAILY clobetasol 0.05% 1 appl topical BID gabapentin 100 mg PO TID gemfibrozil 600 mg PO BID hydrocodone-acetaminophen 7.5-325 mg 1 tab PO Q6H PRN lisinopril 40 mg PO DAILY omeprazole 40 mg PO DAILY orphenadrine citrate ER 100 mg PO BID secukinumab 300 mg subcut Q4W sildenafil 100 mg PO DAILY PRN triamcinolone acetonide 0.5% 1 appl topical BID zolpidem 10 mg PO BEDTIME PRN Tobacco use date assessed: 05/31/25 Fall risk assessment: No Falls in past year Last assessed Fall Risk: 05/31/25 Dental Screening Dental Screen Date: 05/31/25 Did you have a dental visit in the last 12 months?: No Did you have a dental problem in the last 6 months where you did not have access to dental care?: No Was dental information given to patient?: No HPI Med Management HPI Details Patient comes in today for his follow up visit States that he feels okay He denies any headaches or dizziness Denies any chest pains, no SOB No nausea/vomiting, no abdominal pain No change in bowel habits noted States that his chronic low back pain and joint pains remain adequately controlled on his current Rx - will need his pain med Rx refilled today [facility] Medical History Positive JULIUS (antinuclear antibody) Insomnia GERD without esophagitis Essential hypertension Mixed hyperlipidemia Polyuria Hyperlipidemia Psoriatic arthritis Benign essential HTN Primary osteoarthritis of right knee Erectile dysfunction Enlarged prostate without lower urinary tract symptoms (luts) Surgical History History of surgery History of laparoscopic cholecystectomy History of tonsillectomy History of arthroscopy of right knee History of appendectomy Family History Father Degenerative joint disease Mother Psoriasis Rheumatoid arthritis Social History Housing: House Housing Other:: refused to answer Alcohol intake: never Patient Tobacco Use Status: Former Tobacco user Tobacco use type: Cigarette e-Cigarette/Vaping Use: Never Used Second Hand Smoke Exposure: Yes service: No Current occupational status: other Current occupational exposures/hazards: No Cognitive needs: No Hearing needs: No Vision needs: No Questionnaire PHQ-9 Over the last 2 weeks, how often have you been bothered by any of the following problems? 1. Little interest or pleasure in doing things: not at all 2. Feeling down, depressed, or hopeless: not at all 3. Trouble falling or staying asleep, or sleeping too much: not at all 4. Feeling tired or having little energy: not at all 5. Poor appetite or overeating: not at all 6. Feeling bad about yourself - or that you are a failure or have let yourself or your family down: not at all 7. Trouble concentrating on things, such as reading the newspaper or watching television: not at all 8. Moving or speaking so slowly that other people could have noticed. Or the opposite - being so fidgety or restless that you have been moving around a lot more than usual: not at all 9. Thoughts that you would be better off or of hurting yourself in some way: not at all Total score: 0 Depression Screening Interpretation: Negative Depression Screening Done: Yes 71685 - PHQ-9 Billing: Yes Source: Developed by Drs. Hunter Ahuja, Nusrat Kraus, Ifeanyi Lyn and colleagues, with an educational merry from [employer]. Thrive Questionnaire Date Thrive assessed: 05/31/25 I am a: Patient What is your living situation today?: I have a steady place to live Within the past 12 months, did the food you bought not last and you didn't have the money to get more?: Never true Within the past 12 months, did you worry whether your food would run out before you got money to buy more?: Never true Do you have trouble paying for medicines?: No Do you have trouble getting transportation to medical appointments?: No Do you have trouble paying your heating and electricity bill?: I choose not to answer this question Do you have trouble taking care of your child, family member or friend?: I choose not to answer this question Do you have trouble with day-to-day activities such as bathing, preparing meals, shopping, managing finances, etc.?: I choose not to answer this question Are you currently unemployed and looking for a job?: I choose not to answer this question Are you interested in more education?: I choose not to answer this question Please select the resources that you would like help with: None Currently or been in a relationship where the following occur: I choose not to answer THRIVE Score: 0 AUDIT C Alcohol Use Questionnaire (AUDIT-C) 1. How often do you have a drink containing alcohol?: Never 3. How often do you have six or more drinks on one occasion?: Never Total Score: 0 Score Reviewed/Action Taken: Yes NELSON-7 AMB Questionnaire NELSON-7 Date NELSON - 7 assessed: 05/31/25 Feeling nervous, anxious, or on edge: 0 = Not at all Not being able to stop or control worryin = Not at all Worrying too much about different things: 0 = Not at all Trouble relaxin = Not at all Being so restless that it is hard to sit still: 0 = Not at all Becoming easily annoyed or irritable: 0 = Not at all Feeling afraid as if something awful might happen: 0 = Not at all Total NELSON-7 score (0-4 normal; 5-9 mild; 10-14 moderate; 15-21 severe): 0 Source: Developed by Drs. Hunter Ahuja, Nusrat Kraus, Ifeanyi Lyn and colleagues, with an educational merry from [employer]. Review of Systems Const Denies chills, Denies fatigue, Denies fever(s) and Denies headache(s) ENT Denies dysphagia, Denies dizziness, Denies otalgia, Denies headache(s), Denies neck pain, Denies odynophagia and Denies sore throat Card Denies chest pain, Denies palpitations and Denies dyspnea Resp Denies chest congestion, Denies cough and Denies dyspnea GI Denies abdominal pain, Denies constipation, Denies dysphagia, Denies heartburn, Denies diarrhea, Denies nausea, Denies odynophagia and Denies vomiting Denies difficulty urinating, Denies dysuria, Denies nocturia and Denies urinary frequency Musc Reports back pain (over the lower back - chronic), Reports arthralgias (involving multiple joints) and Denies neck pain Skin/Breast Denies rash Neuro Denies dizziness and Denies headache(s) Endo Denies fatigue and Denies palpitations Physical exam (Primary Care) Vital Signs: Last Vital Signs Temp 97.3 F 05/31/25 09:38 Pulse 70 05/31/25 09:38 Resp 18 05/31/25 09:38 BP 150/66 H 05/31/25 09:38 Pulse Ox 97 05/31/25 09:38 Oxygen Delivery Method Room Air 05/31/25 09:38 BMI result Body Mass Index 24.9 Tobacco/Smoking Status: Tobacco use Status Tobacco use date assessed 05/31/25 05/31/25 09:41 Patient Tobacco Use Status Former Tobacco user 05/31/25 09:41 Tobacco use type Cigarette 05/31/25 09:41 e-Cigarette/Vaping Use Never Used 05/31/25 09:41 PHQ-9: PHQ-9 Score PHQ-9: Total score 0 05/31/25 09:52 Depression Screening Interpretation: Negative Thrive Assessment: Date of Thrive Assessment Date Thrive assessed 05/31/25 05/31/25 09:41 Currently or been in a relationship where the following occur: I choose not to answer Const General: no acute distress and alert HENMT Ears: TM's normal bilaterally and EAC's normal Throat: Yes posterior oropharynx normal and Yes tonsils normal (no TP congestion) Neck Neck: Yes supple and No lymphadenopathy Thyroid: Thyroid normal Resp Auscultation: clear to auscultation bilaterally, no rales and no wheezes Cardio Rate: regular rate Rhythm: regular rhythm Heart sounds: no murmurs GI Palpation (GI): Soft to palpation and nontender Auscultation: normal bowel sounds General: Yes no CVA tenderness Back/Spine/Pelvis Back: no CVA tenderness Thoracic/Lumbar Spine: lumbar spinal tenderness Skin Rashes: no rashes Extrem General: Yes no clubbing, cyanosis or edema Coding Level of Care Code Est Pt Level 4 (29741) Diagnoses Failed back syndrome M96.1 Psoriatic arthritis L40.50 Positive JULIUS (antinuclear antibody) R76.8 Mixed hyperlipidemia E78.2 Essential hypertension I10 GERD without esophagitis K21.9 Erectile dysfunction, unspecified erectile dysfunction type N52.9 Erectile dysfunction type: unspecified BPH w urinary obs/LUTS N40.1; N13.8 Insomnia, unspecified type G47.00 Insomnia type: unspecified Additional Codes PHQ-9 - 22128 - PHQ-9 Billing: Yes ([id number]) Assessment & Plan Assessment & Plan (1) Failed back syndrome: Code(s): M96.1 - Postlaminectomy syndrome, not elsewhere classified Category: Medical Plan: Patient reportedly has had 3 separate lower back surgeries with Dr. Kd Sloan in the past He has been maintained on pain medications for his lower back since 2008, which he states help reasonably but states that by 4 pm everyday, he can hardly do anything strenuous anymore as his legs will feel increasing achy and weak He has been referred to pain management at [facility] in [place] and has had several back injections (both from Dr. Sloan and [facility]) in the past Recalls that he has also been tried on spinal stimulators and other pain management modalities, which either provided him with some pain relief but only temporarily or did not help at all He has considered seeing neurosurgery (Dr. Mclean) at [facility] for further management and has discussed this with Dr. Burk in the past States that Dr. Burk has sent him for some lumbar spine x-rays to update his condition but he has not gotten these done yet He is advised that I placed a new order for lumbar spine x-rays and he can get these done at any time - he still has not yet had these done at this time Have advised him that realistically, as he already had 3 back surgeries done in the past, there may not be much neurosurgery can do for him unless there is any active or acute nerve compression in his lower back at this time Reinforced activity and weight lifting restrictions to avoid aggravating his low back pain Continue Vicodin 7.5-325 mg Q 6 hours PRN (Rx refilled) and Gabapentin 100 mg TID (2) Psoriatic arthritis: Code(s): L40.50 - Arthropathic psoriasis, unspecified Category: Medical Plan: Patient continues to follow up with Dr. Acosta at [facility] for continuing management of his psoriatic arthritis Continue Cosentyx 300 mg SQ every 4 weeks Continue Triamcinolone acetonide 0.5% BID PRN for rash (3) Positive JULIUS (antinuclear antibody): Code(s): R76.8 - Other specified abnormal immunological findings in serum Category: Medical Plan: His arthralgia work ups done most recently came back negative with the exception of his JULIUS, in a nuclear homogenous pattern Patient currently does not appear to have any other signs or symptoms of lupus - have advised patient that his JULIUS positivity is likely due to his psoriatic arthritis (4) Mixed hyperlipidemia: Code(s): E78.2 - Mixed hyperlipidemia Category: Medical Plan: His cholesterol numbers are at goal when his labs were checked a couple of months ago Reinforced low cholesterol diet Continue Gemfibrozil 600 mg BID (5) Essential hypertension: Code(s): I10 - Essential (primary) hypertension Category: Medical Plan: Reinforced low sodium diet - goal is systolic BP of 120 to 130 mm or less Continue Amlodipine 10 mg QD and Lisinopril 40 mg QD Patient is reminded to continue monitoring his blood pressure regularly (6) GERD without esophagitis: Code(s): K21.9 - Gastro-esophageal reflux disease without esophagitis Category: Medical Plan: Dietary restrictions reinforced Continue Omeprazole 40 mg QD (7) Erectile dysfunction: Code(s): N52.9 - Male erectile dysfunction, unspecified Category: Medical Qualifiers: Erectile dysfunction type: unspecified Qualified Code(s): N52.9 - Male erectile dysfunction, unspecified Plan: Continue Sildenafil 100 mg PRN as instructed (8) BPH w urinary obs/LUTS: Code(s): N40.1 - Benign prostatic hyperplasia with lower urinary tract symptoms; N13.8 - Other obstructive and reflux uropathy Category: Medical Plan: Continue Tamsulosin 0.4 mg Q HS Follow up with urology as scheduled (9) Insomnia: Code(s): G47.00 - Insomnia, unspecified Category: Medical Qualifiers: Insomnia type: unspecified Qualified Code(s): G47.00 - Insomnia, unspecified Plan: Sleep hygiene reinforced Continue Zolpidem 10 mg Q HS PRN Plan Follow up in 1 month Medications: Refilled hydrocodone-acetaminophen 7.5-325 mg 1 tab PO Q6H PRN 120 tabs 0RF pain M96.1 - Postlaminectomy syndrome, not elsewhere classified
--- OUTSIDE RECORDS SUMMARY | 2025-05-31 10:21 | XMS_ITS | Patient Health Record ---
Author Organization [facility] Address [address] [place] [address] Care Team Providers Care Hosting Engineer Name Role Phone Chad Burk MD Primary Care Provider Hunter Camacho Unavailable [phone] DEBBIE LORENZ Unavailable Unavailable Allergies Allergen (clinical [...] Status Risk Notes Problem Colon cancer screening ([id number]) Colon cancer screening (V76.51) Active confirmed Problem Gastroesophageal reflux disease (053161133) GERD (gastroesopha geal reflux disease) (530.81) Active confirmed Plan Of Treatment Future Test Test Name Order Date UPPER GI ENDOSCOPY 12/13/2012 COLONOSCOPY 12/13/2012 Insurance Providers Payer Name Payer Address Payer Phone Subscriber Number Group Number Insured Name Patient Relationship to Insured Coverage Start Date Coverage End Date MEDICARE OF [place] [address] [place] [address] [id number] BLANKA RANGEL Self - patient is the insured [facility] [address] [place] [address] [id number] BLANKA RANGEL Self - patient is the insured Medical (General) History Medical History History ICD Code GERD HTN Hypercholesterolemia Spinal stenosis Degenerative [facility] disease[facility] Gout Denies MD,DM,CVA,Lung disease,renal dise ase Psoriatic arthritis-sees Dr. Acosta Surgical History Surgery Date(Month/Year) appendix tonsils R knee arthroscopy
== END 2025-05-31 10:06 | disposition home or self-care (01) ==
LOC: HO.HMCH 09:37
PROVIDERS: PCP Internal Medicine; Visit Provider Internal Medicine
DX: M96.1 Postlaminectomy syndrome, not elsewhere classified (principal); L40.50 Arthropathic psoriasis, unspecified; R76.8 Other specified abnormal immunological findings in serum; E78.2 Mixed hyperlipidemia; I10 Essential (primary) hypertension; K21.9 Gastro-esophageal reflux disease without esophagitis; N52.9 Male erectile dysfunction, unspecified; N40.1 Benign prostatic hyperplasia with lower urinary tract symptoms; N13.8 Other obstructive and reflux uropathy; G47.00 Insomnia, unspecified

== ENCOUNTER → 2025-05-31 09:36 | Outpatient (BNVA) | payer MEDICARE, OTHER, SELFPAY | PROVIDERS: PCP Internal Medicine; Visit Provider Internal Medicine | DX: I10 Essential (primary) hypertension (principal); M96.1 Postlaminectomy syndrome, not elsewhere classified; L40.50 Arthropathic psoriasis, unspecified; R76.8 Other specified abnormal immunological findings in serum; E78.2 Mixed hyperlipidemia; K21.9 Gastro-esophageal reflux disease without esophagitis; N52.9 Male erectile dysfunction, unspecified; N40.1 Benign prostatic hyperplasia with lower urinary tract symptoms; N13.8 Other obstructive and reflux uropathy; G47.00 Insomnia, unspecified | CPT/HCPCS: 96127; 99212 ==

== ENCOUNTER 2025-07-01 09:09 | Outpatient (AMB) | payer MEDICARE, OTHER, SELFPAY ==
[2025-07-01 09:17] VITALS: BP 110/70; PULSE 66; O2SAT 96; BMI 24.6
--- NOTE | 2025-07-01 09:17 | A.OFFPC_ITS ---
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: No Accompanied by: Self / Same As Patient Allergies adalimumab (From HUMIRA) Allergy (Unknown, Verified 07/01/25 09:32) RASH Azyxlmq-OCD-CrK Reductase Inhibitor ([id number]-UQH-CHX REDUCTASE INHIBITOR) Allergy (Unknown, Verified 07/01/25 09:32) SWELLING Medication List - Last Reconciled 07/01/25 by Mulugeta Pelletier MD amlodipine 10 mg PO DAILY clobetasol 0.05% 1 appl topical BID gabapentin 100 mg PO TID gemfibrozil 600 mg PO BID hydrocodone-acetaminophen 7.5-325 mg 1 tab PO Q6H PRN lisinopril 40 mg PO DAILY omeprazole 40 mg PO DAILY orphenadrine citrate ER 100 mg PO BID secukinumab 300 mg subcut Q4W sildenafil 100 mg PO DAILY PRN triamcinolone acetonide 0.5% 1 appl topical BID zolpidem 10 mg PO BEDTIME PRN Tobacco use date assessed: 07/01/25 Fall risk assessment: No Falls in past year Last assessed Fall Risk: 07/01/25 Dental Screening Dental Screen Date: 07/01/25 Did you have a dental visit in the last 12 months?: No Did you have a dental problem in the last 6 months where you did not have access to dental care?: No Was dental information given to patient?: No HPI Med Management HPI Details Patient comes in today for his follow up visit States that he feels okay and that his chronic low back pain and joint pains remain adequately controlled on his current Rx He will need his pain med Rx refilled today Adds that he has a recurrent scaling rash on the left side of his face under his left eye for several weeks now States that he has tried applying some OTC cream (Abx as well as steroid) on the rash for a while now and it will appear to be improving at times but has never cleared up or healed up completely and he is starting to become worried about this He denies any headaches or dizziness Denies any chest pains, no SOB No nausea/vomiting, no abdominal pain No change in bowel habits noted [facility] Medical History Positive JULIUS (antinuclear antibody) Insomnia GERD without esophagitis Essential hypertension Mixed hyperlipidemia Polyuria Hyperlipidemia Psoriatic arthritis Benign essential HTN Primary osteoarthritis of right knee Erectile dysfunction Enlarged prostate without lower urinary tract symptoms (luts) Surgical History History of surgery History of laparoscopic cholecystectomy History of tonsillectomy History of arthroscopy of right knee History of appendectomy Family History Father Degenerative joint disease Mother Psoriasis Rheumatoid arthritis Social History Housing: House Housing Other:: refused to answer Alcohol intake: never Patient Tobacco Use Status: Former Tobacco user Tobacco use type: Cigarette e-Cigarette/Vaping Use: Never Used Second Hand Smoke Exposure: Yes service: No Current occupational status: other Current occupational exposures/hazards: No Cognitive needs: No Hearing needs: No Vision needs: No Questionnaire PHQ-9 Over the last 2 weeks, how often have you been bothered by any of the following problems? Depression Screening Interpretation: Negative Depression Screening Done: Yes Source: Developed by Drs. Hunter Ahuja, Nusrat Kraus, Ifeanyi Lyn and colleagues, with an educational merry from [employer]. Thrive Questionnaire Date Thrive assessed: 01/28/25 I am a: Patient What is your living situation today?: I have a steady place to live Within the past 12 months, did the food you bought not last and you didn't have the money to get more?: Never true Within the past 12 months, did you worry whether your food would run out before you got money to buy more?: Never true Do you have trouble paying for medicines?: No Do you have trouble getting transportation to medical appointments?: No Do you have trouble paying your heating and electricity bill?: I choose not to answer this question Do you have trouble taking care of your child, family member or friend?: I choose not to answer this question Do you have trouble with day-to-day activities such as bathing, preparing meals, shopping, managing finances, etc.?: I choose not to answer this question Are you currently unemployed and looking for a job?: I choose not to answer this question Are you interested in more education?: I choose not to answer this question Please select the resources that you would like help with: None Currently or been in a relationship where the following occur: I choose not to answer THRIVE Score: 0 AUDIT C Alcohol Use Questionnaire (AUDIT-C) 1. How often do you have a drink containing alcohol?: Never 3. How often do you have six or more drinks on one occasion?: Never Total Score: 0 Score Reviewed/Action Taken: Yes NELSON-7 AMB Questionnaire NELSON-7 Date NELSON - 7 assessed: 05/31/25 Source: Developed by Drs. Hunter Ahuja, Nusrat Kraus, Ifeanyi Lyn and colleagues, with an educational merry from [employer]. Review of Systems Const Denies chills, Denies fatigue, Denies fever(s) and Denies headache(s) ENT Denies dysphagia, Denies dizziness, Denies otalgia, Denies headache(s), Denies neck pain, Denies odynophagia and Denies sore throat Card Denies chest pain, Denies palpitations and Denies dyspnea Resp Denies chest congestion, Denies cough and Denies dyspnea GI Denies abdominal pain, Denies constipation, Denies dysphagia, Denies heartburn, Denies diarrhea, Denies nausea, Denies odynophagia and Denies vomiting Denies difficulty urinating, Denies dysuria, Denies nocturia and Denies urinary frequency Musc Reports back pain (over the lower back - chronic), Reports arthralgias (involving multiple joints) and Denies neck pain Skin/Breast Details: (+) scaling lesion on the left side of the face, just under the left eye Neuro Denies dizziness and Denies headache(s) Endo Denies fatigue and Denies palpitations Physical exam (Primary Care) Vital Signs: Last Vital Signs Pulse 66 07/01/25 09:17 BP 110/70 07/01/25 09:17 Pulse Ox 96 07/01/25 09:17 Oxygen Delivery Method Room Air 07/01/25 09:17 BMI result Body Mass Index 24.6 Tobacco/Smoking Status: Tobacco use Status Tobacco use date assessed 07/01/25 07/01/25 09:26 Patient Tobacco Use Status Former Tobacco user 07/01/25 09:19 Tobacco use type Cigarette 07/01/25 09:19 e-Cigarette/Vaping Use Never Used 07/01/25 09:19 Depression Screening Interpretation: Negative Thrive Assessment: Date of Thrive Assessment Date Thrive assessed 01/28/25 07/01/25 09:19 Currently or been in a relationship where the following occur: I choose not to answer Const General: no acute distress and alert HENMT Ears: TM's normal bilaterally and EAC's normal Throat: Yes posterior oropharynx normal and Yes tonsils normal (no TP congestion) Neck Neck: Yes supple and No lymphadenopathy Thyroid: Thyroid normal Resp Auscultation: clear to auscultation bilaterally, no rales and no wheezes Cardio Rate: regular rate Rhythm: regular rhythm Heart sounds: no murmurs GI Palpation (GI): Soft to palpation and nontender Auscultation: normal bowel sounds General: Yes no CVA tenderness Back/Spine/Pelvis Back: no CVA tenderness Thoracic/Lumbar Spine: lumbar spinal tenderness Skin Other: (+) scaling lesion, currently covered with a scab, on the left cheek, just under the left eye Extrem General: Yes no clubbing, cyanosis or edema Coding Level of Care Code Est Pt Level 4 (30062) Diagnoses Failed back syndrome M96.1 Psoriatic arthritis L40.50 Positive JULIUS (antinuclear antibody) R76.8 Mixed hyperlipidemia E78.2 Essential hypertension I10 GERD without esophagitis K21.9 Erectile dysfunction, unspecified erectile dysfunction type N52.9 Erectile dysfunction type: unspecified Facial lesion L98.9 BPH w urinary obs/LUTS N40.1; N13.8 Insomnia, unspecified type G47.00 Insomnia type: unspecified Assessment & Plan Assessment & Plan (1) Failed back syndrome: Code(s): M96.1 - Postlaminectomy syndrome, not elsewhere classified Category: Medical Plan: Patient reportedly has had 3 separate lower back surgeries with Dr. Kd Sloan in the past He has been maintained on pain medications for his lower back since 2008, which he states help reasonably but by 4 pm everyday, he can hardly do anything strenuous anymore as his legs will feel increasing achy and weak He has been referred to pain management at [facility] in [place] and has had several back injections (both from Dr. Sloan and [facility]) in the past Recalls that he has also been tried on spinal stimulators and other pain management modalities, which either provided him with some pain relief but only temporarily or did not help at all He has considered seeing neurosurgery (Dr. Mclean) at [facility] for further management and has discussed this with Dr. Burk in the past States that Dr. Burk has sent him for some lumbar spine x-rays to update his condition but he has not gotten these done yet He is advised that I placed a new order for lumbar spine x-rays and he can get these done at any time - he still has not yet had these done at this time Have advised patient to try and get these done when he goes for his routine labs next month Have also advised him that realistically, as he already had 3 back surgeries done in the past, there may not be much neurosurgery can do for him unless there is any active or acute nerve compression in his lower back at this time Reinforced activity and weight lifting restrictions to avoid aggravating his low back pain Continue Vicodin 7.5-325 mg Q 6 hours PRN (Rx refilled) and Gabapentin 100 mg TID (2) Psoriatic arthritis: Code(s): L40.50 - Arthropathic psoriasis, unspecified Category: Medical Plan: Patient continues to follow up with Dr. Acosta at [facility] for continuing management of his psoriatic arthritis Continue Cosentyx 300 mg SQ every [address] Acosta is trying to switch him over to Skyrizi soon Continue Triamcinolone acetonide 0.5% BID PRN for rash (3) Positive JULIUS (antinuclear antibody): Code(s): R76.8 - Other specified abnormal immunological findings in serum Category: Medical Plan: His arthralgia work ups done most recently came back negative with the exception of his JULIUS, in a nuclear homogenous pattern Patient currently does not appear to have any other signs or symptoms of lupus - have advised patient that his JULIUS positivity is likely due to his psoriatic arthritis (4) Mixed hyperlipidemia: Code(s): E78.2 - Mixed hyperlipidemia Category: Medical Plan: His cholesterol numbers are at goal when his labs were checked a few months ago Reinforced low cholesterol diet Continue Gemfibrozil 600 mg BID Will have him recheck his labs and fasting lipids next month for follow up (5) Essential hypertension: Code(s): I10 - Essential (primary) hypertension Category: Medical Plan: Reinforced low sodium diet - goal is systolic BP of 120 to 130 mm or less Continue Amlodipine 10 mg QD and Lisinopril 40 mg QD His blood pressure appears to be much better controlled today - states that he has tried avoiding salt in his diet as best as he can over the past month and this seems to be working well Patient is reminded to continue monitoring his blood pressure regularly (6) GERD without esophagitis: Code(s): K21.9 - Gastro-esophageal reflux disease without esophagitis Category: Medical Plan: Dietary restrictions reinforced Continue Omeprazole 40 mg QD (7) Erectile dysfunction: Code(s): N52.9 - Male erectile dysfunction, unspecified Category: Medical Qualifiers: Erectile dysfunction type: unspecified Qualified Code(s): N52.9 - Male erectile dysfunction, unspecified Plan: Continue Sildenafil 100 mg PRN as instructed (8) Facial lesion: Code(s): L98.9 - Disorder of the skin and subcutaneous tissue, unspecified Category: Medical Plan: (+) recurrent, non-healing left facial lesion - (?) etiology Per request, will refer him to dermatology [facility] for further evaluation and management Have advised patient in the meantime to apply topical Mupirocin ointment 2% to the lesion on his left cheek TID and avoid any other topical steroids until he is seen by dermatology (9) BPH w urinary obs/LUTS: Code(s): N40.1 - Benign prostatic hyperplasia with lower urinary tract symptoms; N13.8 - Other obstructive and reflux uropathy Category: Medical Plan: Continue Tamsulosin 0.4 mg Q HS Follow up with urology as scheduled (10) Insomnia: Code(s): G47.00 - Insomnia, unspecified Category: Medical Qualifiers: Insomnia type: unspecified Qualified Code(s): G47.00 - Insomnia, unspecified Plan: Sleep hygiene reinforced Continue Zolpidem 10 mg Q HS PRN Plan Follow up in 1 month Orders: Orders Complete Blood Count Auto Diff 07/27/25 D64.9 - Anemia, unspecified Comprehensive Cobalt. Panel Fast 07/27/25 E78.00 - Pure hypercholesterolemia, unspecified Lipid Panel 07/27/25 E78.00 - Pure hypercholesterolemia, unspecified TSH reflex Free T4 07/27/25 E78.00 - Pure hypercholesterolemia, unspecified UA CC w/rflx Micro + Cult 07/27/25 R30.0 - Dysuria Vitamin D 25-OH Total 07/27/25 E55.9 - Vitamin D deficiency, unspecified Hemoglobin A1c 07/27/25 R73.9 - Hyperglycemia, unspecified Referrals Dermatology Referral L98.9 - Disorder of the skin and subcutaneous tissue, unspecified Medications: New mupirocin 2% (Centany) 1 appl topical TID 22 grams 0RF Refilled hydrocodone-acetaminophen 7.5-325 mg 1 tab PO Q6H PRN 120 tabs 0RF pain M96.1 - Postlaminectomy syndrome, not elsewhere classified lisinopril 40 mg PO DAILY 90 tabs 2RF
--- OUTSIDE RECORDS SUMMARY | 2025-07-01 10:17 | XMS_ITS | Patient Health Record ---
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 Name Role Phone Chad Burk MD Primary Care Provider Hunter Camacho Unavailable [phone] DEBBIE LORENZ Unavailable Unavailable Allergies Allergen (clinical [...] Status Risk Notes Problem Colon cancer screening (600560417) Colon cancer screening (V76.51) Active confirmed Problem Gastroesophageal reflux disease (635283742) GERD (gastroesopha geal reflux disease) (530.81) Active confirmed Plan Of Treatment Future Test Test Name Order Date UPPER GI ENDOSCOPY 12/13/2012 COLONOSCOPY 12/13/2012 Insurance Providers Payer Name Payer Address Payer Phone Subscriber Number Group Number Insured Name Patient Relationship to Insured Coverage Start Date Coverage End Date MEDICARE OF [place] [address] [place] [address] [id number] BLANKA RANGEL Self - patient is the insured [facility] [address] [place] [phone] [id number] BLANKA RANGEL Self - patient is the insured Medical (General) History Medical History History ICD Code GERD HTN Hypercholesterolemia Spinal stenosis Degenerative joint disease[facility] Gout Denies [place],DM,CVA,Lung disease,renal dise ase Psoriatic arthritis-sees Dr. Acosta Surgical History Surgery Date(Month/Year) appendix tonsils R knee arthroscopy
== END 2025-07-01 09:59 | disposition home or self-care (01) ==
LOC: HO.HMCH 09:11
PROVIDERS: PCP Internal Medicine; Visit Provider Internal Medicine
DX: M96.1 Postlaminectomy syndrome, not elsewhere classified (principal); L40.50 Arthropathic psoriasis, unspecified; R76.89 Other specified abnormal immunological findings in serum; E78.2 Mixed hyperlipidemia; I10 Essential (primary) hypertension; K21.9 Gastro-esophageal reflux disease without esophagitis; N52.9 Male erectile dysfunction, unspecified; L98.9 Disorder of the skin and subcutaneous tissue, unspecified; N40.1 Benign prostatic hyperplasia with lower urinary tract symptoms; N13.8 Other obstructive and reflux uropathy; G47.00 Insomnia, unspecified

== ENCOUNTER → 2025-07-01 09:09 | Outpatient (BNVA) | payer MEDICARE, OTHER, SELFPAY | PROVIDERS: PCP Internal Medicine; Visit Provider Internal Medicine | DX: M96.1 Postlaminectomy syndrome, not elsewhere classified (principal); M54.50 Low back pain, unspecified; L40.50 Arthropathic psoriasis, unspecified; E78.2 Mixed hyperlipidemia; I10 Essential (primary) hypertension; K21.9 Gastro-esophageal reflux disease without esophagitis; N52.9 Male erectile dysfunction, unspecified; L98.9 Disorder of the skin and subcutaneous tissue, unspecified; N40.1 Benign prostatic hyperplasia with lower urinary tract symptoms; N13.8 Other obstructive and reflux uropathy; G47.00 Insomnia, unspecified | CPT/HCPCS: 99212 ==

== ENCOUNTER 2025-07-22 08:37 | Outpatient (REF) | payer MEDICARE, OTHER, SELFPAY ==
[2025-07-22 08:53] LABS: MANUAL DIFF FLAG NO
--- OUTSIDE RECORDS SUMMARY | 2025-07-22 09:04 | XMS_ITS | Patient Health Record ---
Author Organization [facility] Address [address] [place] [address] Care Team Providers Care Analytical Manager Name Role Phone Chad Burk MD Primary Care Provider Hunter Camacho Unavailable [phone] DEBBIE LORENZ Unavailable Unavailable Allergies Allergen (clinical [...] Status Risk Notes Problem Colon cancer screening (055453944) Colon cancer screening (V76.51) Active confirmed Problem Gastroesophageal reflux disease (741264601) GERD (gastroesopha geal reflux disease) (530.81) Active confirmed Plan Of Treatment Future Test Test Name Order Date UPPER GI ENDOSCOPY 12/13/2012 COLONOSCOPY 12/13/2012 Insurance Providers Payer Name Payer Address Payer Phone Subscriber Number Group Number Insured Name Patient Relationship to Insured Coverage Start Date Coverage End Date [place]ARE [place] [address] [place] [address] [phone] [id number] BLANKA RANGEL Self - patient is the insured [facility] [address] [place] [phone] [id number] BLANKA RANGEL Self - patient is the insured Medical (General) History Medical History History ICD Code GERD HTN Hypercholesterolemia Spinal stenosis [facility] Gout Denies CT,DM,CVA,Lung disease,renal dise ase Psoriatic arthritis-sees Dr. Acosta Surgical History Surgery Date(Month/Year) appendix tonsils R knee arthroscopy
[2025-07-22 09:27] LABS: Hematocrit 36.5 % (42.0-52.0); Hemoglobin 11.9 g/dl (14.0-18.0); Imm Gran Abs Auto 0.01 X10*3/uL (0.00-0.03); Imm Gran Pct Auto 0.4 % (0.0-0.4); Lymphocytes Absolute Auto 0.6 X10*3/uL (1.2-4.9); Mean Corpuscular HGB Conc 32.6 g/dl (31.0-36.0); Mean Corpuscular Hemoglobin 26.7 pg (27.0-33.0); Mean Corpuscular Volume 82.0 fL (80.0-98.0); NRBC Abs Auto 0.000 X10*3/uL (0.0-0.012); NRBC Pct Auto 0.0 /100WBC (0.0-0.2); Platelet Count 240 X10*3/uL (160-400); Red Blood Count 4.45 X10*6/uL (4.60-5.80); White Blood Count 2.7 X10*3/uL (4.8-10.8)
[2025-07-22 10:04] LABS: Alanine Aminotransferase 11 U/L (0-40); Albumin Level 4.8 g/dL (3.5-5.0); Alkaline Phosphatase 46 U/L (39-117); Anion Gap 12 (12-20); Aspartate Amino Transferase 17 U/L (5-37); Blood Urea Nitrogen 11 mg/dL (9-16); Calcium 9.4 mg/dL (8.4-10.2); Carbon Dioxide 25 mmol/L (22-29); Chloride 106 mmol/L (96-108); Cholesterol 165 mg/dL (<200); Estimated Glomerular Filt Rate > 60; HDL Cholesterol 76 mg/dL (>40); Potassium 4.5 mmol/L (3.3-5.1); Sodium 138 mmol/L (135-145); Total Protein 7.3 g/dL (6.5-8.0); Triglycerides 40 mg/dL (<150)
[2025-07-22 10:05] LABS: Appearance Urine Clear; Glucose Urine UA Negative (Negative); PH 5.5 (5.0-9.0); Specific Gravity - Urine <= 1.005 (1.005-1.025)
== END 2025-07-22 08:38 | disposition home or self-care (01) ==
LOC: HO.LAB 08:37
PROVIDERS: PCP Internal Medicine; Visit Provider Internal Medicine
DX: R30.0 Dysuria (principal); E78.00 Pure hypercholesterolemia, unspecified; R73.9 Hyperglycemia, unspecified; D64.9 Anemia, unspecified; E55.9 Vitamin D deficiency, unspecified
CPT/HCPCS: 36415; 80053; 80061; 81003; 82306; 83036; 84443; 85025

== ENCOUNTER 2025-08-01 09:39 | Outpatient (AMB) | payer MEDICARE, OTHER, SELFPAY ==
[2025-08-01 09:50] VITALS: BP 120/74; PULSE 72; TEMP 36.1; O2SAT 98; BMI 24.7
--- NOTE | 2025-08-01 09:50 | A.OFFPC_ITS ---
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: No Accompanied by: Self / Same As Patient Allergies adalimumab (From HUMIRA) Allergy (Unknown, Verified 08/01/25 10:03) RASH Ookiord-FBO-QqK Reductase Inhibitor (SDWAFEE-NBW-FJG REDUCTASE INHIBITOR) Allergy (Unknown, Verified 08/01/25 10:03) SWELLING Medication List - Last Reconciled 08/01/25 by Mulugeta Pelletier MD amlodipine 10 mg PO DAILY clobetasol 0.05% 1 appl topical BID gabapentin 100 mg PO TID gemfibrozil 600 mg PO BID hydrocodone-acetaminophen 7.5-325 mg 1 tab PO Q6H PRN lisinopril 40 mg PO DAILY mupirocin 2% (Centany) 1 appl topical TID omeprazole 40 mg PO DAILY orphenadrine citrate ER 100 mg PO BID risankizumab-rzaa (Skyrizi) 150 mg subcut Q12W sildenafil 100 mg PO DAILY PRN triamcinolone acetonide 0.5% 1 appl topical BID zolpidem 10 mg PO BEDTIME PRN Tobacco use date assessed: 07/01/25 Fall risk assessment: No Falls in past year Last assessed Fall Risk: 07/01/25 Dental Screening Dental Screen Date: 07/01/25 Did you have a dental visit in the last 12 months?: No Did you have a dental problem in the last 6 months where you did not have access to dental care?: No Was dental information given to patient?: Patient has dentist HPI Med Management HPI Details Patient comes in today for his follow up visit States that he feels okay He still has a recurrent scaling rash on the left side of his face under his left eye that responded only partially to topical steroids and Abx He was referred to dermatology previously for further evaluation of this and he is now scheduled to be seen by Dr. Torsten Beck of [facility] at his office at [address] [place] [address] in [place], [place] on October 08, 2025 at 9:15 AM Adds that he was recently switched over from Cosentyx to Skyrizi by his personnel technician for his psoriatic arthritis and he will be getting his second dose sometime next week - states that he has no problems so far with the new medication He denies any headaches or dizziness Denies any chest pains, no SOB No nausea/vomiting, no abdominal pain No change in bowel habits noted States that his chronic low back pain and joint pains remain adequately controlled on his current Rx and he will need his pain med Rx and Sildenafil Rx refilled today He had his follow up labs done early last week - to discuss his results [facility] Medical History Positive JULIUS (antinuclear antibody) Insomnia GERD without esophagitis Essential hypertension Mixed hyperlipidemia Polyuria Hyperlipidemia Psoriatic arthritis Benign essential HTN Primary osteoarthritis of right knee Erectile dysfunction Enlarged prostate without lower urinary tract symptoms (luts) Surgical History History of surgery History of laparoscopic cholecystectomy History of tonsillectomy History of arthroscopy of right knee History of appendectomy Family History Father Degenerative joint disease Mother Psoriasis Rheumatoid arthritis Social History Housing: House Housing Other:: refused to answer Alcohol intake: never Patient Tobacco Use Status: Former Tobacco user Tobacco use type: Cigarette e-Cigarette/Vaping Use: Never Used Second Hand Smoke Exposure: No service: No Current occupational status: other Current occupational exposures/hazards: No Cognitive needs: No Hearing needs: No Vision needs: No Questionnaire PHQ-9 Over the last 2 weeks, how often have you been bothered by any of the following problems? 1. Little interest or pleasure in doing things: not at all 2. Feeling down, depressed, or hopeless: not at all 3. Trouble falling or staying asleep, or sleeping too much: not at all 4. Feeling tired or having little energy: not at all 5. Poor appetite or overeating: not at all 6. Feeling bad about yourself - or that you are a failure or have let yourself or your family down: not at all 7. Trouble concentrating on things, such as reading the newspaper or watching television: not at all 8. Moving or speaking so slowly that other people could have noticed. Or the opposite - being so fidgety or restless that you have been moving around a lot more than usual: not at all 9. Thoughts that you would be better off or of hurting yourself in some way: not at all Total score: 0 Depression Screening Interpretation: Negative Depression Screening Done: Yes 75242 - PHQ-9 Billing: Yes Source: Developed by Drs. Hunter Ahuja, Nusrat Kraus, Ifeanyi Lyn and colleagues, with an educational merry from [employer]. Thrive Questionnaire Date Thrive assessed: 01/28/25 I am a: Patient What is your living situation today?: I have a steady place to live Within the past 12 months, did the food you bought not last and you didn't have the money to get more?: Never true Within the past 12 months, did you worry whether your food would run out before you got money to buy more?: Never true Do you have trouble paying for medicines?: No Do you have trouble getting transportation to medical appointments?: No Do you have trouble paying your heating and electricity bill?: I choose not to answer this question Do you have trouble taking care of your child, family member or friend?: I choose not to answer this question Do you have trouble with day-to-day activities such as bathing, preparing meals, shopping, managing finances, etc.?: I choose not to answer this question Are you currently unemployed and looking for a job?: I choose not to answer this question Are you interested in more education?: I choose not to answer this question Please select the resources that you would like help with: None Currently or been in a relationship where the following occur: I choose not to answer THRIVE Score: 0 AUDIT C Alcohol Use Questionnaire (AUDIT-C) 1. How often do you have a drink containing alcohol?: Never 3. How often do you have six or more drinks on one occasion?: Never Total Score: 0 Score Reviewed/Action Taken: Yes NELSON-7 AMB Questionnaire NELSON-7 Date NELSON - 7 assessed: 05/31/25 Feeling nervous, anxious, or on edge: 0 = Not at all Not being able to stop or control worryin = Not at all Worrying too much about different things: 0 = Not at all Trouble relaxin = Not at all Being so restless that it is hard to sit still: 0 = Not at all Becoming easily annoyed or irritable: 0 = Not at all Feeling afraid as if something awful might happen: 0 = Not at all Total NELSON-7 score (0-4 normal; 5-9 mild; 10-14 moderate; 15-21 severe): 0 Source: Developed by Drs. Hunter Ahuja, Nusrat Kraus, Ifeanyi Lyn and colleagues, with an educational merry from [employer]. Review of Systems Const Denies chills, Denies fatigue, Denies fever(s) and Denies headache(s) ENT Denies dysphagia, Denies dizziness, Denies otalgia, Denies headache(s), Denies neck pain, Denies odynophagia and Denies sore throat Card Denies chest pain, Denies palpitations and Denies dyspnea Resp Denies chest congestion, Denies cough and Denies dyspnea GI Denies abdominal pain, Denies constipation, Denies dysphagia, Denies heartburn, Denies diarrhea, Denies nausea, Denies odynophagia and Denies vomiting Denies difficulty urinating, Denies dysuria, Denies nocturia and Denies urinary frequency Musc Reports back pain (over the lower back - chronic), Reports arthralgias ( involving multiple joints) and Denies neck pain Skin/Breast Details: (+) scaling lesion on the left side of the face, just under the left eye Neuro Denies dizziness and Denies headache(s) Endo Denies fatigue and Denies palpitations Physical exam (Primary Care) Vital Signs: Last Vital Signs Temp 96.9 F 08/01/25 09:50 Pulse 72 08/01/25 09:50 Pulse Ox 98 08/01/25 09:50 Oxygen Delivery Method Room Air 08/01/25 09:50 BMI result Body Mass Index 24.7 Tobacco/Smoking Status: Tobacco use Status Tobacco use date assessed 07/01/25 08/01/25 09:51 Patient Tobacco Use Status Former Tobacco user 08/01/25 09:51 Tobacco use type Cigarette 08/01/25 09:51 e-Cigarette/Vaping Use Never Used 08/01/25 09:51 PHQ-9: PHQ-9 Score PHQ-9: Total score 0 08/01/25 09:57 Depression Screening Interpretation: Negative Thrive Assessment: Date of Thrive Assessment Date Thrive assessed 01/28/25 08/01/25 09:51 Currently or been in a relationship where the following occur: I choose not to answer Const General: no acute distress and alert HENMT Ears: TM's normal bilaterally and EAC's normal Throat: Yes posterior oropharynx normal and Yes tonsils normal (no TP congestion) Neck Neck: Yes supple and No lymphadenopathy Thyroid: Thyroid normal Resp Auscultation: clear to auscultation bilaterally, no rales and no wheezes Cardio Rate: regular rate Rhythm: regular rhythm Heart sounds: no murmurs GI Palpation (GI): Soft to palpation and nontender Auscultation: normal bowel sounds General: Yes no CVA tenderness Back/Spine/Pelvis Back: no CVA tenderness Thoracic/Lumbar Spine: lumbar spinal tenderness Skin Other: (+) scaling lesion, currently covered with a scab, on the left cheek, just under the left eye Extrem General: Yes no clubbing, cyanosis or edema Results Reviewed Results Reviewed: Laboratory Tests 07/22/25 07/22/25 08:50 08:56 WBC 2.7 L Hgb 11.9 L Hct 36.5 L Plt Count 240 Sodium 138 Potassium 4.5 Creatinine 0.96 Estimated GFR > 60 Fasting Glucose 108 H Hemoglobin A1c % 5.1 Calcium 9.4 AST 17 ALT 11 Triglycerides 40 Cholesterol 165 LDL Cholesterol, Calc 81 HDL Cholesterol 76 25-OH Vitamin D Total 59.4 TSH 0.73 Ur Specific [place] <= 1.005 Urine Protein Negative Urine Glucose (UA) Negative Urine Blood Negative Urine Nitrite Negative Ur Leukocyte Esterase Negative Coding Level of Care Code Est Pt Level 4 (70695) Diagnoses Failed back syndrome M96.1 Psoriatic arthritis L40.50 Positive JULIUS (antinuclear antibody) R76.8 Mixed hyperlipidemia E78.2 Essential hypertension I10 GERD without esophagitis K21.9 Erectile dysfunction, unspecified erectile dysfunction type N52.9 Erectile dysfunction type: unspecified Facial lesion L98.9 BPH w urinary obs/LUTS N40.1; N13.8 Insomnia, unspecified type G47.00 Insomnia type: unspecified Additional Codes PHQ-9 - 62363 - PHQ-9 Billing: Yes ([id number]) Assessment & Plan Assessment & Plan (1) Failed back syndrome: Code(s): M96.1 - Postlaminectomy syndrome, not elsewhere classified Category: Medical Plan: Patient reportedly has had 3 separate lower back surgeries done with Dr. Kd Sloan in the past He has been maintained on pain medications for his lower back since 2008, which he states help reasonably but by 4 pm everyday, he can hardly do anything strenuous anymore as his legs will feel increasing achy and weak He has been referred to pain management at [facility] in [place] and has had several back injections (both from Dr. Sloan and [facility]) in the past Recalls that he has also been tried on spinal stimulators and other pain management modalities, which either provided him with some pain relief but only temporarily or did not help at all He has considered seeing neurosurgery (Dr. Mclean) at [facility] for further management and has discussed this with Dr. Burk in the past States that Dr. Burk has sent him for some lumbar spine x-rays to update his condition but he has not gotten these done yet I have placed a new order for lumbar spine x-rays earlier this year and he has been advised that he can get these done at any time - he still has not yet had these done at this time Have also advised him that realistically, as he already had 3 back surgeries done in the past, there may not be much neurosurgery can do for him unless there is any active or acute nerve compression in his lower back Reinforced activity and weight lifting restrictions to avoid aggravating his low back pain Continue Vicodin 7.5-325 mg Q 6 hours PRN (Rx refilled) and Gabapentin 100 mg TID (2) Psoriatic arthritis: Comment: Has tried Humira, Enbrel and Cosentyx in the past without any improvement Code(s): L40.50 - Arthropathic psoriasis, unspecified Category: Medical Plan: Patient continues to follow up with Dr. Acosta at [facility] for continuing management of his psoriatic arthritis He was recently switched from Cosentyx 300 mg SQ every 4 weeks to Skyrizi 150 mg Q 12 weeks He has been tried on Humira and Enbrel also in the past with either no significant improvement or with side effects Continue Triamcinolone acetonide 0.5% BID PRN for rash (3) Positive JULIUS (antinuclear antibody): Code(s): R76.8 - Other specified abnormal immunological findings in serum Category: Medical Plan: His arthralgia work ups done most recently came back negative with the exception of his JULIUS, in a nuclear homogenous pattern Patient currently does not appear to have any other signs or symptoms of lupus - have advised patient that his JULIUS positivity is likely due to his psoriatic arthritis (4) Mixed hyperlipidemia: Code(s): E78.2 - Mixed hyperlipidemia Category: Medical Plan: Results of his labs done last week reviewed and discussed with patient - have advised him that his cholesterol numbers remain at goal Reinforced low cholesterol diet Continue Gemfibrozil 600 mg BID (5) Essential hypertension: Code(s): I10 - Essential (primary) hypertension Category: Medical Plan: Reinforced low sodium diet - goal is systolic BP of 120 to 130 mm or less Continue Amlodipine 10 mg QD and Lisinopril 40 mg QD Patient is reminded to continue monitoring his blood pressure regularly (6) GERD without esophagitis: Code(s): K21.9 - Gastro-esophageal reflux disease without esophagitis Category: Medical Plan: Dietary restrictions reinforced Continue Omeprazole 40 mg QD (7) Erectile dysfunction: Code(s): N52.9 - Male erectile dysfunction, unspecified Category: Medical Qualifiers: Erectile dysfunction type: unspecified Qualified Code(s): N52.9 - Male erectile dysfunction, unspecified Plan: Continue Sildenafil 100 mg PRN as instructed - Rx refilled (8) Facial lesion: Code(s): L98.9 - Disorder of the skin and subcutaneous tissue, unspecified Category: Medical Plan: (+) recurrent, non-healing left facial lesion - (?) etiology Per request, we referred him to dermatology for further evaluation and management - he is now scheduled to be seen by Dr. Beck in September 2025 (9) BPH w urinary obs/LUTS: Code(s): N40.1 - Benign prostatic hyperplasia with lower urinary tract symptoms; N13.8 - Other obstructive and reflux uropathy Category: Medical Plan: Continue Tamsulosin 0.4 mg Q HS Follow up with urology as scheduled (10) Insomnia: Code(s): G47.00 - Insomnia, unspecified Category: Medical Qualifiers: Insomnia type: unspecified Qualified Code(s): G47.00 - Insomnia, unspecified Plan: Sleep hygiene reinforced Continue Zolpidem 10 mg Q HS PRN Plan Follow up in 1 month Medications: Refilled hydrocodone-acetaminophen 7.5-325 mg 1 tab PO Q6H PRN 120 tabs 0RF pain M96.1 - Postlaminectomy syndrome, not elsewhere classified sildenafil administer 30 minutes to 4 hours before activity 100 mg PO DAILY PRN 30 tabs 6RF sexual activity
--- OUTSIDE RECORDS SUMMARY | 2025-08-01 10:53 | XMS_ITS | Patient Health Record ---
Author Organization [facility] Address [address] [place] [address] Care Team Providers Care Chain Hooker Name Role Phone Chad Burk MD Primary Care Provider Hunter Camacho Unavailable [phone] DEBBIE LORENZ Unavailable Unavailable Allergies Allergen (clinical [...] Status Risk Notes Problem Colon cancer screening ([id number]) Colon cancer screening (V76.51) Active confirmed Problem Gastroesophageal reflux disease (313612276) GERD (gastroesopha geal reflux disease) (530.81) Active confirmed Plan Of Treatment Future Test Test Name Order Date UPPER GI ENDOSCOPY 12/13/2012 COLONOSCOPY 12/13/2012 Insurance Providers Payer Name Payer Address Payer Phone Subscriber Number Group Number Insured Name Patient Relationship to Insured Coverage Start Date Coverage End Date MEDICARE OF [place] [address] [place] [address] [id number] BLANKA RANGEL Self - patient is the insured [facility] [address] [place] [phone] [id number] BLANKA RANGEL Self - patient is the insured Medical (General) History Medical History History ICD Code GERD HTN Hypercholesterolemia Spinal stenosis [facility]ative [facility] Gout Denies SC,DM,CVA,Lung disease,renal dise ase Psoriatic arthritis-sees Dr. Acosta Surgical History Surgery Date(Month/Year) appendix tonsils R knee arthroscopy
== END 2025-08-01 10:23 | disposition home or self-care (01) ==
LOC: HO.HMCH 09:40
PROVIDERS: PCP Internal Medicine; Visit Provider Internal Medicine
DX: M96.1 Postlaminectomy syndrome, not elsewhere classified (principal); L40.50 Arthropathic psoriasis, unspecified; R76.89 Other specified abnormal immunological findings in serum; E78.2 Mixed hyperlipidemia; I10 Essential (primary) hypertension; K21.9 Gastro-esophageal reflux disease without esophagitis; N52.9 Male erectile dysfunction, unspecified; L98.9 Disorder of the skin and subcutaneous tissue, unspecified; N40.1 Benign prostatic hyperplasia with lower urinary tract symptoms; N13.8 Other obstructive and reflux uropathy; G47.00 Insomnia, unspecified

== ENCOUNTER → 2025-08-01 09:39 | Outpatient (BNVA) | payer MEDICARE, OTHER, SELFPAY | PROVIDERS: PCP Internal Medicine; Visit Provider Internal Medicine | DX: M96.1 Postlaminectomy syndrome, not elsewhere classified (principal); L40.50 Arthropathic psoriasis, unspecified; I10 Essential (primary) hypertension; K21.9 Gastro-esophageal reflux disease without esophagitis; N52.9 Male erectile dysfunction, unspecified; L98.9 Disorder of the skin and subcutaneous tissue, unspecified; N40.1 Benign prostatic hyperplasia with lower urinary tract symptoms; N13.8 Other obstructive and reflux uropathy; G47.00 Insomnia, unspecified | CPT/HCPCS: 96127; 99212 ==

== ENCOUNTER 2025-08-30 09:43 | Outpatient (AMB) | payer MEDICARE, OTHER, SELFPAY ==
--- NOTE | 2025-08-30 09:47 | MHC.PC.OV ---
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: No Accompanied by: Self / Same As Patient Allergies adalimumab (From HUMIRA) Allergy (Unknown, Verified 08/30/25 09:55) RASH Kuqnmnl-HFP-UxW Reductase Inhibitor (FLKOPYG-RUW-VDJ REDUCTASE INHIBITOR) Allergy (Unknown, Verified 08/30/25 09:55) SWELLING Medication List - Last Reconciled 08/30/25 by Mulugeta Pelletier MD amlodipine 10 mg PO DAILY clobetasol 0.05% 1 appl topical BID gabapentin 100 mg PO TID gemfibrozil 600 mg PO BID hydrocodone-acetaminophen 7.5-325 mg 1 tab PO Q6H PRN lisinopril 40 mg PO DAILY mupirocin 2% (Centany) 1 appl topical TID omeprazole 40 mg PO DAILY orphenadrine citrate ER 100 mg PO BID risankizumab-rzaa (Skyrizi) 150 mg subcut Q12W sildenafil 100 mg PO DAILY PRN triamcinolone acetonide 0.5% 1 appl topical BID zolpidem 10 mg PO BEDTIME PRN Tobacco use date assessed: 08/30/25 Fall risk assessment: No Falls in past year Last assessed Fall Risk: 08/30/25 Dental Screening Dental Screen Date: 08/30/25 Did you have a dental visit in the last 12 months?: No Did you have a dental problem in the last 6 months where you did not have access to dental care?: No Was dental information given to patient?: Patient has dentist HPI Med Management HPI Details Patient comes in today for his follow up visit States that he feels okay and that he seems to be doing well on Skyrizi for his psoriatic arthritis - he already had 2 He denies any headaches or dizziness Denies any chest pains, no SOB No nausea/vomiting, no abdominal pain No change in bowel habits noted He had a shave biopsy done on the lesion/rash on his left cheek by Dr. Beck at [facility] early last week and has not yet heard back from them about his biopsy/pathology report States that his chronic low back pain and joint pains remain adequately controlled on his current Rx and he will need his pain med Rx refilled today He would also like to get a flu shot here today [facility] Medical History Positive JULIUS (antinuclear antibody) Insomnia GERD without esophagitis Essential hypertension Mixed hyperlipidemia Polyuria Hyperlipidemia Psoriatic arthritis Benign essential HTN Primary osteoarthritis of right knee Erectile dysfunction Enlarged prostate without lower urinary tract symptoms (luts) Surgical History History of surgery History of laparoscopic cholecystectomy History of tonsillectomy History of arthroscopy of right knee History of appendectomy Family History Father Degenerative joint disease Mother Psoriasis Rheumatoid arthritis Social History Housing: House Housing Other:: refused to answer Alcohol intake: never Patient Tobacco Use Status: Former Tobacco user Tobacco use type: Cigarette e-Cigarette/Vaping Use: Never Used Second Hand Smoke Exposure: No service: No Current occupational status: other Current occupational exposures/hazards: No Cognitive needs: No Hearing needs: No Vision needs: No Questionnaire PHQ-9 Over the last 2 weeks, how often have you been bothered by any of the following problems? 1. Little interest or pleasure in doing things: not at all 2. Feeling down, depressed, or hopeless: not at all 3. Trouble falling or staying asleep, or sleeping too much: not at all 4. Feeling tired or having little energy: not at all 5. Poor appetite or overeating: not at all 6. Feeling bad about yourself - or that you are a failure or have let yourself or your family down: not at all 7. Trouble concentrating on things, such as reading the newspaper or watching television: not at all 8. Moving or speaking so slowly that other people could have noticed. Or the opposite - being so fidgety or restless that you have been moving around a lot more than usual: not at all 9. Thoughts that you would be better off or of hurting yourself in some way: not at all Total score: 0 Depression Screening Interpretation: Negative Depression Screening Done: Yes 60479 - PHQ-9 Billing: Yes Source: Developed by Drs. Hunter Ahuja, Nusrat Kraus, Ifeanyi Lyn and colleagues, with an educational merry from [employer]. Thrive Questionnaire Date Thrive assessed: 08/30/25 I am a: Patient What is your living situation today?: I have a steady place to live Within the past 12 months, did the food you bought not last and you didn't have the money to get more?: Never true Within the past 12 months, did you worry whether your food would run out before you got money to buy more?: Never true Do you have trouble paying for medicines?: No Do you have trouble getting transportation to medical appointments?: No Do you have trouble paying your heating and electricity bill?: I choose not to answer this question Do you have trouble taking care of your child, family member or friend?: I choose not to answer this question Do you have trouble with day-to-day activities such as bathing, preparing meals, shopping, managing finances, etc.?: I choose not to answer this question Are you currently unemployed and looking for a job?: I choose not to answer this question Are you interested in more education?: I choose not to answer this question Please select the resources that you would like help with: None Currently or been in a relationship where the following occur: I choose not to answer THRIVE Score: 0 AUDIT C Alcohol Use Questionnaire (AUDIT-C) 1. How often do you have a drink containing alcohol?: Never 3. How often do you have six or more drinks on one occasion?: Never Total Score: 0 Score Reviewed/Action Taken: Yes NELSON-7 AMB Questionnaire NELSON-7 Date NELSON - 7 assessed: 08/30/25 Feeling nervous, anxious, or on edge: 0 = Not at all Not being able to stop or control worryin = Not at all Worrying too much about different things: 0 = Not at all Trouble relaxin = Not at all Being so restless that it is hard to sit still: 0 = Not at all Becoming easily annoyed or irritable: 0 = Not at all Feeling afraid as if something awful might happen: 0 = Not at all Total NELSON-7 score (0-4 normal; 5-9 mild; 10-14 moderate; 15-21 severe): 0 Source: Developed by Drs. Hunter Ahuja, Nusrat Kraus, Ifeanyi Lyn and colleagues, with an educational merry from [employer]. Review of Systems Const Denies chills, Denies fatigue, Denies fever(s) and Denies headache(s) ENT Denies dysphagia, Denies dizziness, Denies otalgia, Denies headache(s), Denies neck pain, Denies odynophagia and Denies sore throat Card Denies chest pain, Denies palpitations and Denies dyspnea Resp Denies chest congestion, Denies cough and Denies dyspnea GI Denies abdominal pain, Denies constipation, Denies dysphagia, Denies heartburn, Denies diarrhea, Denies nausea, Denies odynophagia and Denies vomiting Denies difficulty urinating, Denies dysuria, Denies nocturia and Denies urinary frequency Musc Reports back pain (over the lower back - chronic), Reports arthralgias (involving multiple joints) and Denies neck pain Skin/Breast Details: (+) healing surgical wound on the left side of the face, just under the left eye - lesion is currently covered up with a band aid Denies rash Neuro Denies dizziness and Denies headache(s) Endo Denies fatigue and Denies palpitations Physical exam (Primary Care) Vital Signs: Last Vital Signs Pulse 66 08/30/25 09:48 BP 136/80 08/30/25 09:48 Pulse Ox 97 08/30/25 09:48 Oxygen Delivery Method Room Air 08/30/25 09:48 BMI result Body Mass Index 25.1 Tobacco/Smoking Status: Tobacco use Status Tobacco use date assessed 08/30/25 08/30/25 09:53 Patient Tobacco Use Status Former Tobacco user 08/30/25 09:53 Tobacco use type Cigarette 08/30/25 09:53 e-Cigarette/Vaping Use Never Used 08/30/25 09:53 PHQ-9: PHQ-9 Score PHQ-9: Total score 0 08/30/25 10:07 Depression Screening Interpretation: Negative Thrive Assessment: Date of Thrive Assessment Date Thrive assessed 08/30/25 12 09:53 Currently or been in a relationship where the following occur: I choose not to answer Const General: no acute distress and alert HENMT Ears: TM's normal bilaterally and EAC's normal Throat: Yes posterior oropharynx normal and Yes tonsils normal (no TP congestion) Neck Neck: Yes supple and No lymphadenopathy Thyroid: Thyroid normal Resp Auscultation: clear to auscultation bilaterally, no rales and no wheezes Cardio Rate: regular rate Rhythm: regular rhythm Heart sounds: no murmurs GI Palpation (GI): Soft to palpation and nontender Auscultation: normal bowel sounds General: Yes no CVA tenderness Back/Spine/Pelvis Back: no CVA tenderness Thoracic/Lumbar Spine: lumbar spinal tenderness Skin Other: (+) healing surgical wound on the left cheek, just under the left eye - wound is currently covered with a band aid Rashes: no rashes Extrem General: Yes no clubbing, cyanosis or edema Office Procedures Flu Questionnaire Does the patient have a severe egg allergy?: No Does the patient have severe life threatening allergies?: No Does the patient have a fever or illness today?: No Has the patient ever had Guillain-[place] Syndrome?: No Has the patient ever had any past reaction to a flu shot?: No Immunizations Fluarix [id number] (PF) 45 mcg (15 mcg x 3)/0.5 mL IM syringe Performing Provider: Mulugeta Pelletier MD [facility] Administered by: MIHAI Guan on 08/30/25 10:11 Dose Route Admin Location Dispensed Lot Number Expiration Date NDC Social Psychologist 0.5 mL IM Left Deltoid 0.5 mL [id number] 03/25/26 [id number] [employer] [facility] [facility] V[facility] Given Date VIS Provided VIS Publication Date 08/30/25 Single Vaccine 24 Eligibility Eligibility Date Funding Source Not [facility] Eligible 08/30/25 Private Coding Level of Care Code Est Pt Level 4 (37153) Diagnoses Failed back syndrome M96.1 Psoriatic arthritis L40.50 Positive JULIUS (antinuclear antibody) R76.8 Mixed hyperlipidemia E78.2 Essential hypertension I10 GERD without esophagitis K21.9 Erectile dysfunction, unspecified erectile dysfunction type N52.9 Erectile dysfunction type: unspecified Facial lesion L98.9 BPH w urinary obs/LUTS N40.1; N13.8 Insomnia, unspecified type G47.00 Insomnia type: unspecified Additional Codes PHQ-9 - 05139 - PHQ-9 Billing: Yes ([id number]) Assessment & Plan Assessment & Plan (1) Failed back syndrome: Code(s): M96.1 - Postlaminectomy syndrome, not elsewhere classified Category: Medical Plan: Patient reportedly has had 3 separate lower back surgeries done with Dr. Kd Sloan in the past He has been maintained on pain medications for his lower back since 2008, which he states help reasonably but by 4 pm everyday, he can hardly do anything strenuous anymore as his legs will feel increasing achy and weak He has been referred to pain management at [facility] in [place] and has had several back injections (both from Dr. Sloan and [facility]) in the past Recalls that he has also been tried on spinal stimulators and other pain management modalities, which either provided him with some pain relief but only temporarily or did not help at all He has considered seeing neurosurgery (Dr. Mclean) at [facility] for further management and has discussed this with Dr. Burk in the past States that Dr. Burk has sent him for some lumbar spine x-rays to update his condition but he has not gotten these done yet I have placed a new order for lumbar spine x-rays earlier this year and he has been advised that he can get these done at any time - he still has not yet had these done at this time Have also advised him that realistically, as he already had 3 back surgeries done in the past, there may not be much neurosurgery can do for him unless there is any active or acute nerve compression in his lower back Reinforced activity and weight lifting restrictions to avoid aggravating his low back pain Continue Vicodin 7.5-325 mg Q 6 hours PRN (Rx refilled) and Gabapentin 100 mg TID (2) Psoriatic arthritis: Comment: Has tried Humira, Enbrel and Cosentyx in the past without any improvement Code(s): L40.50 - Arthropathic psoriasis, unspecified Category: Medical Plan: Patient continues to follow up with Dr. Acosta at [facility] for continuing management of his psoriatic arthritis He was recently switched from Cosentyx 300 mg SQ every 4 weeks to Skyrizi 150 mg Q 12 weeks - states that he's had 2 doses of Skyrizi already so far and he does not seem to have any side effects so far He has been tried on Humira and Enbrel also in the past with either no significant improvement or with side effects Continue Triamcinolone acetonide 0.5% BID PRN for rash (3) Positive JULIUS (antinuclear antibody): Code(s): R76.8 - Other specified abnormal immunological findings in serum Category: Medical Plan: His arthralgia work ups done most recently came back negative with the exception of his JULIUS, in a nuclear homogenous pattern Patient currently does not appear to have any other signs or symptoms of lupus - have advised patient that his JULIUS positivity is likely due to his psoriatic arthritis (4) Mixed hyperlipidemia: Code(s): E78.2 - Mixed hyperlipidemia Category: Medical Plan: Reinforced low cholesterol diet Continue Gemfibrozil 600 mg BID (5) Essential hypertension: Code(s): I10 - Essential (primary) hypertension Category: Medical Plan: Reinforced low sodium diet - goal is systolic BP of 120 to 130 mm or less Continue Amlodipine 10 mg QD and Lisinopril 40 mg QD Patient is reminded to continue monitoring his blood pressure regularly (6) GERD without esophagitis: Code(s): K21.9 - Gastro-esophageal reflux disease without esophagitis Category: Medical Plan: Dietary restrictions reinforced Continue Omeprazole 40 mg QD (7) Erectile dysfunction: Code(s): N52.9 - Male erectile dysfunction, unspecified Category: Medical Qualifiers: Erectile dysfunction type: unspecified Qualified Code(s): N52.9 - Male erectile dysfunction, unspecified Plan: Continue Sildenafil 100 mg PRN as instructed (8) Facial lesion: Code(s): L98.9 - Disorder of the skin and subcutaneous tissue, unspecified Category: Medical Plan: (+) recurrent, non-healing left facial lesion - (?) etiology He just had a shave biopsy of his left facial lesion done early next week by Dr. Beck but has not yet heard back from them about his biopsy/pathology report He is advised to try to reach out to them if he still does not hear from them by early next week (9) BPH w urinary obs/LUTS: Code(s): N40.1 - Benign prostatic hyperplasia with lower urinary tract symptoms; N13.8 - Other obstructive and reflux uropathy Category: Medical Plan: Continue Tamsulosin 0.4 mg Q HS Follow up with urology as scheduled (10) Insomnia: Code(s): G47.00 - Insomnia, unspecified Category: Medical Qualifiers: Insomnia type: unspecified Qualified Code(s): G47.00 - Insomnia, unspecified Plan: Sleep hygiene reinforced Continue Zolpidem 10 mg Q HS PRN Plan Follow up in 1 month Per request, flu vaccine given to patient today Orders: Orders Influenza [id number] Immunization Today Z23 - Encounter for immunization Medications: Refilled hydrocodone-acetaminophen 7.5-325 mg 1 tab PO Q6H PRN 120 tabs 0RF pain M96.1 - Postlaminectomy syndrome, not elsewhere classified
[2025-08-30 09:48] VITALS: BP 136/80; PULSE 66; O2SAT 97; BMI 25.1
--- OUTSIDE RECORDS SUMMARY | 2025-08-30 10:49 | XMS_ITS | Patient Health Record ---
Author Organization [facility] Address [address] [place] [address] Care Team Providers Care Compensator Worker Name Role Phone Chad Burk MD Primary Care Provider Hunter Camacho Unavailable [phone] DEBBIE LORENZ Unavailable Unavailable Allergies Allergen (clinical drug ingredient) Drug/Non Drug Allergy documented on EMR Reaction Allergy Type Onset Date Status Humira Unknown Drug Allergy Active Reason For Referral No Information Medications Medication SIG (Take, Route, Frequency, Duration) Notes Start Date End Date Status Allopurinol prn gout Active Enbrel SureClick A ctive Orphenadrine Citrate CR 09/26/190009/26 Active Vicodin Active Leflunomide Active Omeprazole 20 mg bid A ctive Viagra Active Gemfibrozil Active Zolpidem Tartrate Active amLODIPine Besylate Active Flonase Active Lisinopril Active Clobetasol Propionate 09/26/1900 901 Active Folic Acid Active Triamcinolone Acetonide 09/26/190009/26 Active Social History Social History Additional Details Category Social Info Options Details Miscellaneous: Marital status: Occupation: Retired Section Notes: Stopped smoking in 1976; no alcohol Problems Problem Type SNOMED Code ICD Code Onset Dates Problem Status W/U Status Risk Notes Problem Colon cancer screening (284417799) Colon cancer screening (V76.51) Active confirmed Problem Gastroesophageal reflux disease (738251438) GERD (gastroesopha geal reflux disease) (530.81) Active confirmed Plan Of Treatment Future Test Test Name Order Date UPPER GI ENDOSCOPY 12/13/2012 COLONOSCOPY 12/13/2012 Insurance Providers Payer Name Payer Address Payer Phone Subscriber Number Group Number Insured Name Patient Relationship to Insured Coverage Start Date Coverage End Date MEDICARE OF [place] [address] [place] [address] [id number] BLANKA RANGEL Self - patient is the insured [facility] [address] [place] [address] [phone] [id number] BLANKA RANGEL Self - patient is the insured Medical (General) History Medical History History ICD Code GERD HTN Hypercholesterolemia Spinal stenosis 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 Acosta Surgical History Surgery Date(Month/Year) appendix tonsils R knee arthroscopy
== END 2025-08-30 10:44 | disposition home or self-care (01) ==
LOC: HO.HMCH 09:43
PROVIDERS: PCP Internal Medicine; Visit Provider Internal Medicine
DX: M96.1 Postlaminectomy syndrome, not elsewhere classified (principal); L40.50 Arthropathic psoriasis, unspecified; R76.89 Other specified abnormal immunological findings in serum; E78.2 Mixed hyperlipidemia; I10 Essential (primary) hypertension; K21.9 Gastro-esophageal reflux disease without esophagitis; N52.9 Male erectile dysfunction, unspecified; L98.9 Disorder of the skin and subcutaneous tissue, unspecified; N40.1 Benign prostatic hyperplasia with lower urinary tract symptoms; N13.8 Other obstructive and reflux uropathy; G47.00 Insomnia, unspecified; Z23 Encounter for immunization

== ENCOUNTER → 2025-08-30 09:43 | Outpatient (BNVA) | payer MEDICARE, OTHER, SELFPAY | PROVIDERS: PCP Internal Medicine; Visit Provider Internal Medicine | DX: M96.1 Postlaminectomy syndrome, not elsewhere classified (principal); R76.89 Other specified abnormal immunological findings in serum; L40.50 Arthropathic psoriasis, unspecified; E78.2 Mixed hyperlipidemia; I10 Essential (primary) hypertension; K21.9 Gastro-esophageal reflux disease without esophagitis; N52.9 Male erectile dysfunction, unspecified; L98.9 Disorder of the skin and subcutaneous tissue, unspecified; N40.1 Benign prostatic hyperplasia with lower urinary tract symptoms; N13.8 Other obstructive and reflux uropathy; G47.00 Insomnia, unspecified; Z13.31 Encounter for screening for depression; Z23 Encounter for immunization; Z13.39 Encounter for screening examination for other mental health and behavioral disorders; Z79.899 Other long term (current) drug therapy | CPT/HCPCS: 90471; 90656; 96127; 99212 ==